=== PATIENT | male | born 1960 | race Caucasian/White ===

== ENCOUNTER 2017-05-08 01:19 | Inpatient (IN) | payer MEDICARE ==
[2017-05-08] MEDS ORDERED: MULTIVITAMIN TABLET PO ONE (01:54)
[2017-05-08] MEDS ORDERED: FOLIC ACID INJ 5 MG/1 ML 10 ML VIAL IV ONE (01:54)
[2017-05-08] MEDS ORDERED: THIAMINE HCL 100 MG in NORMAL SALINE 50 ML IV ONE (01:54)
[2017-05-08] MEDS ORDERED: RINGERS SOLUTION,LACTATED 1,000 ML IV ONE (01:55)
[2017-05-08] MEDS ORDERED: LORAZEPAM INJ 2 MG/1 ML VIAL IV ONE ×2 (01:58→03:49)
--- NOTE | 2017-05-08 01:59 | ER Document Report ---
ED General - General Chief Complaint: Alcohol Withdrawl Stated Complaint: DETOX Time Seen by Provider: 05/08/17 01:48 Notes: She is 56-year-old male who presents with complaint of alcohol abuse. Patient says that he has been drinking heavily now for 3 years. He says he drinks approximately a half a gallon of bourbon a day. He will he last drank yesterday. He started to have tremors now. He says he wants to stop drinking. He says he wants up with detox. He is never stopped cold turkey like this before. He is the nights being detoxed before. Denies any drug use. He does not take any medications. Does not see a doctor on a regular basis. He does smoke. No seizure activity that is aware of. No other complaints at this time. - Related Data Allergies/Adverse Reactions: diphenhydramine Adverse Reaction (Verified 05/08/17 02:25) Past Medical History - Social History Smoking Status: Current Every Day Smoker Frequency of alcohol use: Heavy Drug Abuse: None Family History: Reviewed & Not Pertinent Review of Systems - Review of Systems Notes: My Normal Review Basic REVIEW OF SYSTEMS: CONSTITUTIONAL : Denies fever, chills, or sweats. Denies recent illness. EENT: Denies eye, ear, throat, or mouth pain or symptoms. Denies nasal or sinus congestion. RESPIRATORY: Denies cough, cold, or chest congestion. Denies shortness of breath, difficulty breathing, or wheezing. GASTROINTESTINAL: Denies abdominal pain. Some nausea. No vomiting. GENITOURINARY: Denies difficulty urinating, painful urination, burning, frequency, or blood in urine. MUSCULOSKELETAL: Denies neck or back pain or joint pain or swelling. SKIN: Denies rash or skin lesions. NEUROLOGICAL: Denies altered mental status or loss of consciousness. Denies headache. Denies weakness or paralysis or loss of use of either side. Denies problems with gait or speech. Denies sensory or motor loss. Has a tremor. ALL OTHER SYSTEMS REVIEWED AND NEGATIVE. Physical Exam - Vital signs Vitals: Temp Pulse Resp BP Pulse Ox 98.7 F 94 20 139/75 H 93 05/08/17 01:28 05/08/17 01:28 05/08/17 01:28 05/08/17 01:28 05/08/17 01:28 - Notes Notes: General Appearance: Well nourished, alert, cooperative, no acute distress, no obvious discomfort. Patient has active tremor consistent with that of alcohol withdrawal. Vitals: reviewed, See vital signs table. Head: no swelling or tenderness to the head Eyes: PERRL, EOMI, Conjuctiva clear Mouth: No decreasd moisture Neck: Supple, no neck tenderness, No thyromegaly Lungs: No wheezing, No rales, No rhonci, No accessory muscle use, good air exchange bilaterally. Heart: Tachycardic rate, Regular rythm, No murmur, no rub Abdomen: Normal BS, soft, No rigidity, No abdominal tenderness, No guarding, no rebound, no abdominal masses, no organomegaly Extremities: strength 5/5 in all extremities, good pulses in all extremities, no swelling or tenderness in the extremities, no edema. Skin: warm, dry, appropriate color, no rash Neuro: speech clear, oriented x 3, normal affect, responds appropriately to questions. Course - Re-evaluation Re-evalutation: 05/08/17 03:51 Patient is required multiple dosages of benzodiazepines. They do work for approximately 30 minutes to an hour and then he quickly goes back to having tremors. His heart rate has been anywhere from the 90s to low 110s. Not had a seizure activity. He says some nausea but we been able to control that with Zofran. I did speak to the patient he is going to be admitted. My concern is that his withdrawals requiring frequent treatments which will be difficult to control at home. I did speak with the hospitalist, Dr. Ortega, who agrees to evaluate the patient for admission. Dictation of this chart was performed using voice recognition software; therefore, there may be some unintended grammatical errors. - Vital Signs Vital signs: Temp Pulse Resp BP Pulse Ox 98.7 F 84 25 H 143/65 H 95 05/08/17 01:28 05/08/17 02:26 05/08/17 03:02 05/08/17 03:02 05/08/17 03:02 - Laboratory Result Diagrams: 05/08/17 01:58 05/08/17 01:58 Laboratory results interpreted by me: 05/08/17 05/08/17 05/08/17 01:58 01:58 01:58 WBC 16.0 H Hgb 17.4 H Seg Neutrophils % 87.2 H Lymphocytes % 8.4 L Absolute Neutrophils 13.9 H Chloride 92 L Anion Gap 25 H BUN 31 H Glucose 142 H Direct Bilirubin 0.5 H AST 84 H Urine Protein 100 H Urine Glucose (UA) 50 H Urine Ketones 20 H Urine Blood MODERATE H Discharge - Discharge Clinical Impression: Alcohol withdrawal Qualifiers: Complication of substance-induced condition: uncomplicated Qualified Code(s): F10.230 - Alcohol dependence with withdrawal, uncomplicated Condition: Stable Disposition: ADMITTED OBSERVATION Admitting Provider: Hospitalist Unit Admitted: Telemetry
[2017-05-08] MEDS ORDERED: THIAMINE HCL INJ 200 MG/2 ML VIAL ONE (02:10)
[2017-05-08 02:12] LABS: ABSOLUTE BASOPHILS # (AUTO) 0.1 10^3/uL (0.0-0.2); ABSOLUTE LYMPHOCYTES (AUTO) 1.3 10^3/uL (0.5-4.7); ABSOLUTE MONOCYTES (AUTO) 0.6 10^3/uL (0.1-1.4); ABSOLUTE NEUT (AUTO) 13.9 10^3/uL (1.7-8.2); BASOPHILS % (AUTO) 0.4 % (0-2); HEMOGLOBIN 17.4 g/dL (13.5-17.0); LYMPHOCYTES % (AUTO) 8.4 % (13-45); MEAN CORPUSCULAR HEMOGLOBIN 32.6 pg (27.0-33.4); MEAN CORPUSCULAR HGB CONC 34.2 g/dL (32.0-36.0); MEAN CORPUSCULAR VOLUME 96 fl (80-97); PLATELET COUNT 361 10^3/uL (150-450); RED BLOOD COUNT 5.33 10^6/uL (4.35-5.55); SEGMENTED NEUTROPHILS % (AUTO) 87.2 % (42-78); TOTAL CELLS COUNTED % (AUTO) 100 %
[2017-05-08 02:35] LABS: ALANINE AMINOTRANSFERASE 54 U/L (21-72); ALBUMIN 4.9 g/dL (3.5-5.0); ALKALINE PHOSPHATASE 82 U/L (38-126); ASPARTATE AMINO TRANSFERASE 84 U/L (17-59); BILIRUBIN,DIRECT 0.5 mg/dL (0.0-0.4); BILIRUBIN,TOTAL 0.9 mg/dL (0.2-1.3); BLOOD UREA NITROGEN 31 mg/dL (7-20); CALCIUM 9.1 mg/dL (8.4-10.2); CHLORIDE 92 mmol/L (98-107); GLUCOSE 142 mg/dL (75-110); TOTAL PROTEIN 7.7 g/dL (6.3-8.2)
[2017-05-08] MEDS ORDERED: DIAZEPAM INJ 10 MG/2 ML DISP.SYRIN IV ONE (02:39)
[2017-05-08] MEDS ORDERED: ONDANSETRON HCL INJ/PF 4 MG/2 ML SDV IV ONE (02:40)
[2017-05-08 02:42] LABS: CARBON DIOXIDE 23 mmol/L (22-30); POTASSIUM 4.2 mmol/L (3.6-5.0); SODIUM 139.5 mmol/L (137-145)
[2017-05-08 02:45] LABS: ANION GAP 25 (5-19)
[2017-05-08 02:49] LABS: APPEARANCE,URINE CLEAR; BILIRUBIN,URINE NEGATIVE (NEGATIVE); COLOR,URINE YELLOW; GLUCOSE, URINE 50 mg/dL (NEGATIVE); KETONES,URINE 20 mg/dL (NEGATIVE); LEUKOCYTE ESTERASE,URINE NEGATIVE (NEGATIVE); NITRITE,URINE NEGATIVE (NEGATIVE); PROTEIN,URINE 100 mg/dL (NEGATIVE); UROBILINOGEN,URINE NEGATIVE mg/dL (<2.0)
[2017-05-08 03:00] LABS: URINE AMPHETAMINES SCREEN NEGATIVE; URINE BENZODIAZEPINES SCREEN NEGATIVE; URINE COCAINE SCREEN NEGATIVE; URINE MARIJUANA (THC) SCREEN NEGATIVE; URINE METHADONE SCREEN NEGATIVE; URINE PHENCYCLIDINE SCREEN NEGATIVE
[2017-05-08 03:01] LABS: URINE BARBITURATES SCREEN NEGATIVE
[2017-05-08] MEDS ORDERED: LIDOCAINE 2% VISCOUS SOLN 20 ML UDCUP PO ONE (03:49)
[2017-05-08] MEDS ORDERED: MAG HYDROX/AL HYDROX/SIMETH SUSP 30 ML UDCUP PO ONE (03:49)
[2017-05-08] MEDS ORDERED: METOCLOPRAMIDE HCL ORAL SOLN 10 MG/10 ML UDCUP PO ONE (03:49)
[2017-05-08] MEDS ORDERED: ACETAMINOPHEN 325 MG TABLET PO PRN (04:17)
[2017-05-08] MEDS: DIAZEPAM INJ 10 MG/2 ML DISP.SYRIN IV PRN ×2 (05:29→09:14)
[2017-05-08] MEDS ORDERED: HEPARIN SOD (PORCINE) 5,000 UNIT/ML 1 ML SYRINGE SUBCUT SCH (06:00)
[2017-05-08] MEDS ORDERED: FOLIC ACID 1 MG TABLET PO SCH (06:30)
[2017-05-08] MEDS ORDERED: NICOTINE 21 MG/24 HR PATCH.TD24 TD SCH (06:30)
[2017-05-08] MEDS ORDERED: FOLIC ACID 1 MG TABLET PO ONE (06:31)
[2017-05-08] MEDS ORDERED: NORMAL SALINE 1000 ML 1,000 ML IV PRN ×2 (06:43→12:16)
[2017-05-08] MEDS ORDERED: NICOTINE 21 MG/24 HR PATCH.TD24 TD ONE ×2 (06:45→20:15)
[2017-05-08] MEDS ORDERED: THIAMINE HCL 100 MG TABLET PO ONE (07:00)
[2017-05-08] MEDS ORDERED: THIAMINE HCL 100 MG TABLET PO SCH (07:00)
[2017-05-08] MEDS: THIAMINE HCL 100 MG TABLET PO SCH (07:10)
[2017-05-08] MEDS: NICOTINE 21 MG/24 HR PATCH.TD24 TD SCH (07:11)
--- NOTE | 2017-05-08 07:25 | PDOC H&P ---
History of Present Illness Admission Date/PCP: 05/08/17 03:56 Patient complains of: Increased shaking and diarrhea after he stopped drinking alcohol x1 day. History of Present Illness: 69-year-old male smoker with history of alcohol abuse/dependency and COPD (not on home oxygen) was admitted with the above-mentioned complaints. the patient has been drinking very heavily for the last 3-4 years. He usually drinks half a gallon of bourbon a day but he decided to quit yesterday. His last drink was about 24 hours ago. He said that he started feeling nauseous but denied any vomiting. He also had some abdominal pain which he described as burning. He started having diarrhea and he was he was very shaky and anxious so he decided to come to the hospital for further management and treatment. He was also having difficulty urinating and complained of having dysuria for the last week or so. The patient denied any chest pain but complained of worsening shortness of breath last night. He said that he has intermittent shortness of breath for which he used to use an inhaler but he ran out. He denied any fever or chills or any cough. He also denied history of seizures secondary to alcohol withdrawal or any DTs. In the ED, his temperature was 98.7, heart rate 94, respiratory rate 20, blood pressure 139/75 with oxygen saturation of 93% on room air. His WBC was 16.0 hemoglobin 17.4. AST was 84 and ALT 54. His UA and UDS were both negative. He received a total of 3.5 mg IV Ativan 1 and 5 mg IV Valium 1 with some improvement in her sitting his symptoms. Past Medical History Pulmonary Medical History: Reports: Chronic Obstructive Pulmonary Disease (COPD) EENT Medical History: Reports: Other - retinopathy. Psychiatric Medical History: Reports: Alcohol Dependency Past Surgical History Past Surgical History: Reports: Orthopedic Surgery - L4-L5 laminectomy., Other - right inguinal hernia repair; left ulnar nerve replacement. Social History Smoking Status: Current Every Day Smoker Cigarettes Packs Per Day: 2 - 2 packs a day for more than 40 years. The Frequency of Alcohol Use: Heavy - Half a gallon of bourbon for the last 3-4 years. Last dink was 24 hours ago Hx Recreational Drug Use: No Family History Parental Family History Reviewed: Yes - Father: of an ME at 46 yrs old. Children Family History Reviewed: No Sibling(s) Family History Reviewed.: Yes Medication/Allergy Home Medications: No Home Medications 05/08/17 Allergies/Adverse Reactions: diphenhydramine Adverse Reaction (Verified 05/08/17 02:25) Review of Systems ROS unobtainable: Other - Pertinent positives and negatives as detailed in the HPI. Physical Exam Vital Signs: Temp Pulse Resp BP Pulse Ox 98.7 F 84 25 H 143/65 H 95 05/08/17 01:28 05/08/17 02:26 05/08/17 03:02 05/08/17 03:02 05/08/17 03:02 General appearance: PRESENT: no acute distress, well-developed Head exam: PRESENT: atraumatic, normocephalic Eye exam: PRESENT: conjunctiva pink, PERRLA. ABSENT: scleral icterus Mouth exam: PRESENT: moist, tongue midline Neck exam: ABSENT: JVD Respiratory exam: PRESENT: decreased breath sounds, rhonchi. ABSENT: rales, wheezes Cardiovascular exam: PRESENT: RRR - S1 S2 normal. Pulses: PRESENT: normal dorsalis pedis pul GI/Abdominal exam: PRESENT: normal bowel sounds, soft. ABSENT: distended, guarding, rebound, tenderness Rectal exam: PRESENT: deferred Extremities exam: PRESENT: full ROM, pedal edema - trace. Neurological exam: PRESENT: alert, awake, oriented to person, oriented to place , oriented to time, oriented to situation, CN II-XII grossly intact - Bilateral hand tremors. No babinski or clonus. Gait was not assessed. Psychiatric exam: PRESENT: anxious Skin exam: PRESENT: dry, intact, warm. ABSENT: cyanosis, rash Results Laboratory Results: CBC: WBC 16.0, hemoglobin 17.4, hematocrit 51.0, MCV 96, RDW 13.0 platelets 361. CMP: Sodium 139.5, potassium 4.2, chloride 92, bicarb 23, anion gap 25, BUN 31, creatinine 0.81 glucose 142, calcium 9.1, magnesium 2.3, AST 84, ALT 54. Lipase pending. UA: Negative, UDS: Negative. Assessment & Plan - Diagnosis (1) Alcohol withdrawal Qualifiers: Complication of substance-induced condition: uncomplicated Qualified Code(s ): F10.230 - Alcohol dependence with withdrawal, uncomplicated Is this a current diagnosis for this admission?: Yes Plan: We will continue IV Valium as needed, IVF, thiamine, folic acid and multivitamins. (2) Leukocytosis Is this a current diagnosis for this admission?: Yes Plan: Possibly secondary to hemoconcentration. His UA was negative. We will continue hydration and repeat CBC in a.m. (3) COPD (chronic obstructive pulmonary disease) Is this a current diagnosis for this admission?: No Plan: stable. (4) Smoker Is this a current diagnosis for this admission?: No Plan: 2 packs a day for many years. He is willing to quit. Nicotine patch. (5) Alcohol abuse Is this a current diagnosis for this admission?: Yes Plan: possible dependency. He is seeking detox. - Time Time Spent: 30 to 50 Minutes - Inpatient Certification Based on my medical assessment, after consideration of the patient's comorbidities, presenting symptoms, or acuity I expect that the services needed warrant INPATIENT care.: Yes I certify that my determination is in accordance with my understanding of Medicare's requirements for reasonable and necessary INPATIENT services [42 CFR 412.3e].: Yes
[2017-05-08] MEDS: DOCUSATE SODIUM 100 MG CAPSULE PO PRN ×2 (09:14→17:52)
[2017-05-08] MEDS: FOLIC ACID 1 MG TABLET PO SCH (09:14)
[2017-05-08] MEDS: PROMETHAZINE HCL 25 MG TABLET PO PRN (09:14)
[2017-05-08] MEDS ORDERED: INFLUENZA ADLT QUAD (36MOS+) 2017-18 VAC 0.5 ML SYR IM PRN (11:41)
[2017-05-08] MEDS ORDERED: LORAZEPAM INJ 2 MG/1 ML VIAL (TAPER DOSING) IV SCH (12:00)
[2017-05-08] MEDS ORDERED: LORAZEPAM INJ 2 MG/ML VIAL (4 MG PRN DOSE) IV ×2 (12:00→13:30)
[2017-05-08] MEDS ORDERED: LORAZEPAM INJ 2 MG/1 ML VIAL IV PRN (12:30)
--- NOTE | 2017-05-08 12:36 | Progress Note ---
Provider Note Provider Note: Patient heme positive. Patient reports that he has had dark black stools for the last [address] patient on PPI drip with suspected upper GI bleed acute on chronic. Will consult surgery for EGD. Did call coordinate measuring machine operator who states that Dr. Reese will be on service May 11, 2017. Will ask surgery to see patient in case patient decompensates. Will place patient on Klonopin 1 mg every 8 hours as needed for agitation along with EtOH withdrawal protocol. Will write for thiamine folic acid and multivitamin to continue. Will place patient on IV fluids at 150 cc/h. Will obtain chest x-ray to evaluate for possible pneumonia. Patient currently not on antibiotics.
--- NOTE | 2017-05-08 13:03 | RADIOLOGY REPORT (SQ) ---
EXAM DESCRIPTION: CHEST SINGLE VIEW COMPLETED DATE/TIME: 05/08/2017 12:56 pm REASON FOR STUDY: Shortness of breath COMPARISON: None. EXAM PARAMETERS: NUMBER OF VIEWS: One view. TECHNIQUE: Single frontal radiographic view of the chest acquired. RADIATION DOSE: NA LIMITATIONS: None. FINDINGS: LUNGS AND PLEURA: No opacities, masses or pneumothorax. No pleural effusion. MEDIASTINUM AND HILAR STRUCTURES: No masses. Contour normal. HEART AND VASCULAR STRUCTURES: Heart normal in size. Normal vasculature. BONES: No acute findings. HARDWARE: None in the chest. OTHER: No other significant finding. IMPRESSION: NO ACUTE RADIOGRAPHIC FINDING IN THE CHEST. TECHNICAL DOCUMENTATION: JOB ID: [id number] [employer]- All Rights Reserved Reading location - IP/workstation name: [email or web address]
[2017-05-08] MEDS: CLONAZEPAM 1 MG TABLET PO PRN (13:41)
[2017-05-08] MEDS ORDERED: PANTOPRAZOLE SODIUM 80 MG in NORMAL SALINE 100 ML IV ONE (14:30)
[2017-05-08] MEDS: NORMAL SALINE 100 ML with PANTOPRAZOLE SODIUM 80 MG IV PRN ×2 (16:38)
[2017-05-08] MEDS: ONDANSETRON HCL INJ/PF 4 MG/2 ML SDV IV PRN ×2 (16:40→23:31)
[2017-05-08] MEDS ORDERED: PEG 3350/NA SULF,BICARB,CL/KCL 4000 ML PO ONE (17:41)
--- NOTE | 2017-05-08 17:41 | PDOC CONSULTATION ---
Consultation Consult Date: 05/08/17 Consult reason:: GI bleed History of Present Illness Admission Date/PCP: 05/08/17 03:56 History of Present Illness: 69-year-old male smoker with history of alcohol abuse/dependency and COPD (not on home oxygen) was admitted with the above-mentioned complaints. the patient has been drinking very heavily for the last 3-4 years. He usually drinks half a gallon of bourbon a day but he decided to quit yesterday. His last drink was about 24 hours ago. He said that he started feeling nauseous but denied any vomiting. He also had some abdominal pain which he described as burning. He started having diarrhea and he was he was very shaky and anxious so he decided to come to the hospital for further management and treatment. He was also having difficulty urinating and complained of having dysuria for the last week or so. The patient denied any chest pain but complained of worsening shortness of breath last night. He said that he has intermittent shortness of breath for which he used to use an inhaler but he ran out. He denied any fever or chills or any cough. He also denied history of seizures secondary to alcohol withdrawal or any DTs. In the ED, his temperature was 98.7, heart rate 94, respiratory rate 20, blood pressure 139/75 with oxygen saturation of 93% on room air. His WBC was 16.0 hemoglobin 17.4. AST was 84 and ALT 54. His UA and UDS were both negative. He received a total of 3.5 mg IV Ativan 1 and 5 mg IV Valium 1 with some improvement in her sitting his symptoms. General surgeon addendum: According to the patient he has never had a GI bleed. He is undergone upper and lower endoscopy before in [place] several years ago with unremarkable findings. No follow-up colonoscopy since. Patient denies history of blood transfusions or esophageal varices. Strong family history of colon cancer in his mother in her 60s and aunt in her 60s. He lives in a trailer, drinks 1 gallon of bourbon a day and smokes 2 packs of cigarettes per day according to his report this evening. Is now receiving Ativan. He had a large dark melanotic stool which we visualized in the commode today. Denies episodes of bright red blood per rectum or melanotic stool. Past Medical History Pulmonary Medical History: Reports: Chronic Obstructive Pulmonary Disease (COPD) EENT Medical History: Reports: Other - retinopathy. Psychiatric Medical History: Reports: Alcohol Dependency Hematology: Reports: Other - retinopathy. Past Surgical History Past Surgical History: Reports: Orthopedic Surgery - L4-L5 laminectomy., Other - right inguinal hernia repair; left ulnar nerve replacement. Social History Smoking Status: Current Every Day Smoker Cigarettes Packs Per Day: 2 Number of Years Smokin Frequency of Alcohol Use: Heavy Hx Recreational Drug Use: No Drugs: None Hx Prescription Drug Abuse: No - Advance Directive Resuscitation Status: Full Code Family History Family History: Reviewed & Not Pertinent Parental Family History Reviewed: Yes Children Family History Reviewed: Yes Sibling(s) Family History Reviewed.: Yes Medication/Allergy Home Medications: No Home Medications 05/08/17 Allergies/Adverse Reactions: diphenhydramine Adverse Reaction (Verified 05/08/17 02:25) Physical Exam Vital Signs: Temp Pulse Resp BP Pulse Ox 99.5 F 59 L 20 127/49 H 96 05/08/17 16:00 05/08/17 16:00 05/08/17 16:00 05/08/17 16:00 05/08/17 16:00 Intake & Output 05/07/17 05/08/17 05/09/17 06:59 06:59 06:59 Weight 84.7 kg General appearance: PRESENT: mild distress Head exam: PRESENT: normocephalic Respiratory exam: PRESENT: wheezes Cardiovascular exam: PRESENT: RRR GI/Abdominal exam: PRESENT: other - Soft not distended no rigidity no peritoneal signs Rectal exam: PRESENT: deferred Results Laboratory Results: 05/08/17 11:15 Stool Occult Blood POSITIVE Impressions: Chest X-Ray 05/08/17 00:00 IMPRESSION: NO ACUTE RADIOGRAPHIC FINDING IN THE CHEST. Assessment & Plan - Diagnosis (1) Alcohol abuse Is this a current diagnosis for this admission?: Yes (2) Family history of colon cancer Is this a current diagnosis for this admission?: Yes (3) GI bleed Qualifiers: GI bleed type/associated pathology: melena Qualified Code(s): K92.1 - Melena Is this a current diagnosis for this admission?: Yes Plan: Patient is admitted to the internal medicine service for management of acute alcohol withdrawal. He has had a large melanotic stool, consistent with chronic GI bleed. Despite having previous upper and lower endoscopy, I believe repeat endoscopic evaluation is indicated Recommendations: 1. We will keep patient n.p.o. on IV fluids, and plan for upper and lower endoscopy tomorrow, LMAC anesthesia, 1 hour, will biopsy possible injection therapy. Risks benefits alternatives of planned procedure including bleeding, infection, need for additional treatment reviewed 2. Hold all blood thinners; will prescribe cathartics - Time Time Spent: 50 to 70 Minutes Smoking Cessation Education: over 10 minutes - Inpatient Certification Medical Necessity: Need For IV Fluids
[2017-05-08] MEDS: LORAZEPAM INJ 2 MG/1 ML VIAL (TAPER DOSING) IV SCH ×2 (17:50→23:29)
[2017-05-08] MEDS ORDERED: PEG 3350/NA SULF,BICARB,CL/KCL 4000 ML ONE (18:25)
[2017-05-09] MEDS: NORMAL SALINE 100 ML with PANTOPRAZOLE SODIUM 80 MG IV PRN ×6 (00:25→17:10)
[2017-05-09] MEDS: PROMETHAZINE HCL INJ 25 MG/1 ML VIAL IV PRN ×2 (03:27→15:16)
[2017-05-09] MEDS: FENTANYL CITRATE INJ/PF 100 MCG/2 ML AMPUL IV PRN ×3 (03:27→15:16)
[2017-05-09] MEDS: NORMAL SALINE 1000 ML 1,000 ML IV PRN ×2 (05:31→17:10)
[2017-05-09 05:44] LABS: HEMATOCRIT 41.2 % (37.9-51.0); HEMOGLOBIN 14.2 g/dL (13.5-17.0); MEAN CORPUSCULAR HEMOGLOBIN 33.1 pg (27.0-33.4); MEAN CORPUSCULAR HGB CONC 34.4 g/dL (32.0-36.0); MEAN CORPUSCULAR VOLUME 96 fl (80-97); PLATELET COUNT 178 10^3/uL (150-450); RED BLOOD COUNT 4.29 10^6/uL (4.35-5.55); RED CELL DISTRIBUTION WIDTH 13.7 % (11.5-14.0); WHITE BLOOD COUNT 8.5 10^3/uL (4.0-10.5)
[2017-05-09 06:09] LABS: ALANINE AMINOTRANSFERASE 43 U/L (21-72); ALBUMIN 3.1 g/dL (3.5-5.0); ALKALINE PHOSPHATASE 55 U/L (38-126); ANION GAP 10 (5-19); ASPARTATE AMINO TRANSFERASE 42 U/L (17-59); BILIRUBIN,DIRECT 0.2 mg/dL (0.0-0.4); BILIRUBIN,TOTAL 1.5 mg/dL (0.2-1.3); BLOOD UREA NITROGEN 21 mg/dL (7-20); CALCIUM 8.2 mg/dL (8.4-10.2); CARBON DIOXIDE 29 mmol/L (22-30); CHLORIDE 100 mmol/L (98-107); GLUCOSE 95 mg/dL (75-110); POTASSIUM 3.6 mmol/L (3.6-5.0); SODIUM 138.5 mmol/L (137-145); TOTAL PROTEIN 4.9 g/dL (6.3-8.2)
[2017-05-09] MEDS: THIAMINE HCL 100 MG TABLET PO SCH (07:44)
[2017-05-09] MEDS: NICOTINE 21 MG/24 HR PATCH.TD24 TD SCH (07:46)
[2017-05-09] MEDS: ONDANSETRON HCL INJ/PF 4 MG/2 ML SDV IV PRN ×2 (07:46→22:02)
[2017-05-09] MEDS: LORAZEPAM INJ 2 MG/1 ML VIAL (TAPER DOSING) IV SCH ×2 (08:02→11:52)
[2017-05-09] MEDS ORDERED: THIAMINE HCL 100 MG TABLET PO SCH (10:00)
[2017-05-09] MEDS ORDERED: FOLIC ACID 1 MG TABLET PO SCH (10:00)
[2017-05-09] MEDS: FOLIC ACID 1 MG TABLET PO SCH (10:34)
[2017-05-09] MEDS: DOCUSATE SODIUM 100 MG CAPSULE PO PRN ×2 (10:34→17:10)
[2017-05-09] MEDS: MULTIVITAMIN TABLET PO SCH (10:34)
[2017-05-09] MEDS ORDERED: NORMAL SALINE 1000 ML 1,000 ML IV ONE (11:30)
[2017-05-09] MEDS ORDERED: FENTANYL CITRATE INJ/PF 100 MCG/2 ML AMPUL ONE (12:23)
[2017-05-09] MEDS ORDERED: MIDAZOLAM 2 MG/2 ML INJ ONE (12:23)
[2017-05-09] MEDS ORDERED: PROPOFOL INJ 200 MG/20 ML VIAL IV ONE (12:24)
[2017-05-09] MEDS ORDERED: MORPHINE SULFATE 10 MG/ML INJ IV PRN (13:00)
[2017-05-09] MEDS ORDERED: FENTANYL CITRATE INJ/PF 100 MCG/2 ML AMPUL IV PRN ×3 (13:00)
[2017-05-09] MEDS ORDERED: OXYCODONE-ACETAMINOPHEN 5-325 MG TABLET PO PRN ×2 (13:00)
--- NOTE | 2017-05-09 13:46 | PDOC PROGRESS REPORT ---
Subjective Progress Note for:: 05/09/17 Subjective:: Patient seen earlier this morning prior to EGD. Nursing reports that patient's resting heart rate is in the 40s. Nursing states that when patient is awake his heart rate is in the 80s-90s. Received call from Dr. Farrar reporting that patient was found to have a pyloric ulcer on EGD that was not actively bleeding. Reason For Visit: ALCOHOL WITHDRAWAL Physical Exam Vital Signs: Temp Pulse Resp BP Pulse Ox 98.3 F 45 L 18 145/52 H 97 05/09/17 04:52 05/09/17 04:52 05/09/17 04:52 05/09/17 04:52 05/09/17 04:52 Intake & Output 05/08/17 05/09/17 05/10/17 06:59 06:59 06:59 Intake Total 3147 Output Total 500 Balance 2647 Weight 84.7 kg General appearance: PRESENT: well-developed, well-nourished Head exam: PRESENT: atraumatic, normocephalic Eye exam: PRESENT: conjunctiva pink, EOMI Ear exam: PRESENT: normal external ear exam Mouth exam: PRESENT: moist, tongue midline Neck exam: ABSENT: carotid bruit, JVD, lymphadenopathy, thyromegaly Respiratory exam: PRESENT: clear to auscultation alexei. ABSENT: rales, rhonchi, wheezes Cardiovascular exam: PRESENT: bradycardia, RRR Pulses: PRESENT: normal dorsalis pedis pul Vascular exam: PRESENT: normal capillary refill GI/Abdominal exam: PRESENT: normal bowel sounds, soft. ABSENT: distended, guarding, mass, organolmegaly, rebound, tenderness Rectal exam: PRESENT: deferred Extremities exam: PRESENT: full ROM. ABSENT: calf tenderness, clubbing, pedal edema Neurological exam: PRESENT: other - Sleepy but able to awake the patient answers questions appropriately Psychiatric exam: PRESENT: other - But able to awake Focused psych exam: PRESENT: other - Flat affect Skin exam: PRESENT: dry, intact, warm. ABSENT: cyanosis, rash Results Laboratory Results: 05/09/17 04:49 05/09/17 04:49 05/09/17 05/09/17 04:49 04:49 WBC 8.5 RBC 4.29 L Hgb 14.2 D Hct 41.2 MCV 96 MCH 33.1 MCHC 34.4 RDW 13.7 Plt Count 178 Sodium 138.5 Potassium 3.6 Chloride 100 Carbon Dioxide 29 Anion Gap 10 BUN 21 H Creatinine 0.76 Est GFR ( Amer) > 60 Est GFR (Non-Af Amer) > 60 Glucose 95 Calcium 8.2 L Total Bilirubin 1.5 H AST 42 ALT 43 Alkaline Phosphatase 55 Total Protein 4.9 L Albumin 3.1 L Impressions: Chest X-Ray 05/08/17 00:00 IMPRESSION: NO ACUTE RADIOGRAPHIC FINDING IN THE CHEST. Assessment & Plan - Diagnosis (1) Alcohol dependence Is this a current diagnosis for this admission?: Yes Plan: We will continue alcohol withdrawal protocol. Continue with vitamin replacement. (2) Pyloric ulcer Qualifiers: Gastric ulcer chronicity: acute Qualified Code(s): K25.3 - Acute gastric ulcer without hemorrhage or perforation Is this a current diagnosis for this admission?: Yes Plan: We will continue PPI for 72 hours and then transition to Protonix 40 mg p.o. twice daily (3) Alcohol withdrawal Qualifiers: Complication of substance-induced condition: uncomplicated Qualified Code(s ): F10.230 - Alcohol dependence with withdrawal, uncomplicated Is this a current diagnosis for this admission?: Yes Plan: We will continue EtOH withdrawal protocol. (4) COPD (chronic obstructive pulmonary disease) Is this a current diagnosis for this admission?: No Plan: No acute issues at this time. (5) GI bleed Qualifiers: GI bleed type/associated pathology: melena Qualified Code(s): K92.1 - Melena Is this a current diagnosis for this admission?: Yes Plan: Recent found to have a pyloric ulcer with no active bleeding. We will continue PPI for 72 hours and then switched to Protonix 40 mg p.o. twice daily for 2 weeks followed by 1 tablet p.o. daily. (6) Leukocytosis Is this a current diagnosis for this admission?: Yes Plan: Secondary to stress response: Resolved - Time Time Spent with patient: 15-24 minutes
--- NOTE | 2017-05-09 13:51 | EKG REPORT ---
SEVERITY:- DEFECTIVE ECG - SINUS RHYTHM LEFT ANTERIOR FASCICULAR BLOCK CONSIDER ANTERIOR INFARCT (LIKELY V1 AND V3 SWITCHED) REPEAT WITH PROPER LEAD PACEMENT : Confirmed by: Cyrus Galdamez MD 09-May-2017 13:50:25
[2017-05-09] MEDS: CLONAZEPAM 1 MG TABLET PO PRN (15:16)
--- NOTE | 2017-05-09 17:38 | OPERATIVE REPORT E ---
Operative Report NAME: JOHN DIAMOND : 1960 AGE: 56Y DATE OF SURGERY: 05/09/2017 ROOM: 328 PREOPERATIVE DIAGNOSES: 1. ALCOHOL WITHDRAWAL. 2. MELANOTIC STOOLS. POSTOPERATIVE DIAGNOSES: 1. ALCOHOL WITHDRAWAL. 2. MELANOTIC STOOLS. 3. ACUTE GASTRIC ULCER, SPECIFICALLY DUODENAL BULB, MODERATE GASTRITIS. 4. LIPOMA OF THE TRANSVERSE COLON. OPERATION: 1. Esophagogastroduodenoscopy. 2. Gastric antral biopsy sent for ISABELL and histologic analysis. 3. Total colonoscopy to the cecum with photo documentation. SURGEON: TOMAS MCLAIN M.D. ANESTHESIA: L-MAC. COMPLICATIONS: None. ESTIMATED BLOOD LOSS: Scant. DRAINS: None. TISSUE REMOVED OR ALTERED: Biopsy of gastric antrum. FINDINGS: See below. PROCEDURE: The patient was taken from the floor, to the preop holding area, and then to the main operating room where L-MAC anesthesia was induced. He was placed in the semi-recumbent position. Oral mouthpiece inserted, and appropriate level of L-MAC anesthesia induced. Surgical plan and surgical timeout were conducted. The flexible adult upper endoscopy was advanced through the hypopharynx, down the esophagus, through the stomach, and into the duodenum. The scope was slowly withdrawn through the pylorus. The duodenum was found to be essentially unremarkable except for mild duodenitis. No ulceration or bleeding identified. In the pyloric channel there was approximately 2 cm ulcer with some fresh blood on the parameter and white plaque in the center. Photos were taken. No biopsy was taken. There was no evidence of active bleeding or obstruction. The rest of the stomach was carefully visualized and there was no evidence of a tumor, stricture, or bleeding. The scope was retroflexed in the body of the stomach and a small hiatal hernia identified. The scope was withdrawn through the GE junction. The Z-line was at approximately 38 cm from the incisor. The distal esophagus showed mild changes to the Z-line. No biopsy taken. A cold forceps biopsy was obtained of the distal antrum and sent for ISABELL and histologic analysis. Bleeding was minimal. The esophagus was carefully scoped and there was no evidence of Whitman's bleeding or tumor. The scope was withdrawn from the patient's oropharynx. He tolerated this portion of the procedure well. The patient was now placed in the extreme left lateral decubitus position with knees to the chest. Rectal exam was performed. There was no visible or palpable anorectal pathology. The flexible adult colonoscope was advanced in the anorectal canal all the way to the cecum. This was a reasonably well-prepped bowel with no solid stool, but a fair to moderate amount of liquid green stool, which required aspiration. Transillumination of the anterior abdominal wall, and visualization of the ileocecal valve and the orifice to the appendix confirmed cecal intubation. The scope was withdrawn through the length of the colon checking the mucosa carefully. There was no evidence of tumor, stricture, or bleeding. There was a pedunculated lipoma of the transverse colon photographed, no biopsy obtained. The scope was withdrawn from the patient's anus. He tolerated the procedure well, taken to Recovery in stable condition. DICTATING PHYSICIAN: TOMAS MCLAIN M.D. [id number] PHY#: [id number] ID: [id number] JOB#: [id number] ACCT: [id number] cc:TOMAS MCLAIN M.D. >
[2017-05-09] MEDS: PROMETHAZINE HCL 25 MG TABLET PO PRN (20:39)
[2017-05-09] MEDS ORDERED: HYDROMORPHONE HCL INJ/PF 2 MG/ML AMPULE ONE (22:53)
[2017-05-09] MEDS ORDERED: HYDROMORPHONE HCL INJ/PF 2 MG/ML AMPULE IV ONE (23:00)
[2017-05-10] MEDS: NORMAL SALINE 1000 ML 1,000 ML IV PRN (03:02)
[2017-05-10] MEDS: NORMAL SALINE 100 ML with PANTOPRAZOLE SODIUM 80 MG IV PRN ×2 (04:34)
[2017-05-10] MEDS: THIAMINE HCL 100 MG TABLET PO SCH (06:12)
[2017-05-10] MEDS: NICOTINE 21 MG/24 HR PATCH.TD24 TD SCH (06:12)
[2017-05-10] MEDS: ONDANSETRON HCL INJ/PF 4 MG/2 ML SDV IV PRN (06:44)
[2017-05-10 06:54] LABS: ABSOLUTE EOSINOPHILS # (AUTO) 0.2 10^3/uL (0.0-0.6); ABSOLUTE LYMPHOCYTES (AUTO) 1.7 10^3/uL (0.5-4.7); ABSOLUTE MONOCYTES (AUTO) 0.4 10^3/uL (0.1-1.4); ABSOLUTE NEUT (AUTO) 5.7 10^3/uL (1.7-8.2); BASOPHILS % (AUTO) 0.6 % (0-2); EOSINOPHILS % (AUTO) 2.2 % (0-6); HEMATOCRIT 44.2 % (37.9-51.0); HEMOGLOBIN 15.4 g/dL (13.5-17.0); LYMPHOCYTES % (AUTO) 20.8 % (13-45); MEAN CORPUSCULAR HGB CONC 34.9 g/dL (32.0-36.0); MEAN CORPUSCULAR VOLUME 95 fl (80-97); MONOCYTES % (AUTO) 5.3 % (3-13); PLATELET COUNT 152 10^3/uL (150-450); RED BLOOD COUNT 4.67 10^6/uL (4.35-5.55); RED CELL DISTRIBUTION WIDTH 13.5 % (11.5-14.0); SEGMENTED NEUTROPHILS % (AUTO) 71.1 % (42-78); TOTAL CELLS COUNTED % (AUTO) 100 %
[2017-05-10 07:15] LABS: ANION GAP 11 (5-19); BLOOD UREA NITROGEN 12 mg/dL (7-20); CALCIUM 8.6 mg/dL (8.4-10.2); CARBON DIOXIDE 29 mmol/L (22-30); CHLORIDE 97 mmol/L (98-107); GLUCOSE 90 mg/dL (75-110); SODIUM 137.1 mmol/L (137-145)
[2017-05-10 07:18] LABS: POTASSIUM 3.3 mmol/L (3.6-5.0)
[2017-05-10] MEDS ORDERED: POTASSIUM CHLORIDE 10 MEQ TABLET.SA PO ONE (07:40)
[2017-05-10 08:33] VITALS: BP 173/95
[2017-05-10] MEDS: MULTIVITAMIN TABLET PO SCH (09:13)
[2017-05-10] MEDS: DOCUSATE SODIUM 100 MG CAPSULE PO PRN (09:13)
[2017-05-10] MEDS: FOLIC ACID 1 MG TABLET PO SCH (09:13)
[2017-05-10] MEDS: CLONAZEPAM 1 MG TABLET PO PRN (10:37)
[2017-05-10] MEDS ORDERED: NORMAL SALINE 1000 ML 1,000 ML IV PRN (12:04)
[2017-05-10] MEDS ORDERED: CLONAZEPAM 1 MG TABLET PO PRN (12:05)
--- NOTE | 2017-05-10 12:19 | PDOC PROGRESS REPORT ---
Subjective Progress Note for:: 05/10/17 Subjective:: Pt states that he is having abd pain. Nursing states the patient has been defecating on himself. Nursing also reports that patient has been requesting for stronger pain medication. Spoke to patient this morning about getting help for his alcohol abuse. During my encounter patient did not request for additional pain medication. Reason For Visit: ALCOHOL WITHDRAWAL Physical Exam Vital Signs: Temp Pulse Resp BP Pulse Ox 97.7 F 76 24 H 173/95 H 95 05/10/17 08:04 05/10/17 08:04 05/10/17 08:04 05/10/17 08:04 05/10/17 08:04 Intake & Output 05/09/17 05/10/17 05/11/17 06:59 06:59 06:59 Intake Total 3147 8750 Output Total 500 2300 Balance 2647 6450 Weight 84.7 kg 86.2 kg General appearance: PRESENT: no acute distress, well-developed, well-nourished Head exam: PRESENT: atraumatic, normocephalic Eye exam: PRESENT: conjunctiva pink, EOMI Ear exam: PRESENT: normal external ear exam Mouth exam: PRESENT: moist, tongue midline Neck exam: ABSENT: carotid bruit, JVD, lymphadenopathy, thyromegaly Respiratory exam: PRESENT: clear to auscultation alexei. ABSENT: rales, rhonchi, wheezes Cardiovascular exam: PRESENT: RRR. ABSENT: diastolic murmur, rubs, systolic murmur Pulses: PRESENT: normal dorsalis pedis pul Vascular exam: PRESENT: normal capillary refill GI/Abdominal exam: PRESENT: normal bowel sounds, soft. ABSENT: distended, guarding, mass, organolmegaly, rebound, tenderness Rectal exam: PRESENT: deferred Extremities exam: PRESENT: full ROM. ABSENT: calf tenderness, clubbing, pedal edema Musculoskeletal exam: PRESENT: full ROM Neurological exam: PRESENT: alert, awake, oriented to person, oriented to place , oriented to time, oriented to situation Psychiatric exam: PRESENT: agitated Skin exam: PRESENT: dry, intact, warm. ABSENT: cyanosis, rash Results Laboratory Results: 05/10/17 06:06 05/10/17 06:06 05/10/17 05/10/17 06:06 06:06 WBC 8.0 RBC 4.67 Hgb 15.4 Hct 44.2 MCV 95 MCH 33.0 MCHC 34.9 RDW 13.5 Plt Count 152 Seg Neutrophils % 71.1 Lymphocytes % 20.8 Monocytes % 5.3 Eosinophils % 2.2 Basophils % 0.6 Absolute Neutrophils 5.7 Absolute Lymphocytes 1.7 Absolute Monocytes 0.4 Absolute Eosinophils 0.2 Absolute Basophils 0.0 Sodium 137.1 Potassium 3.3 L Chloride 97 L Carbon Dioxide 29 Anion Gap 11 BUN 12 Creatinine 0.78 Est GFR ( Amer) > 60 Est GFR (Non-Af Amer) > 60 Glucose 90 Calcium 8.6 Magnesium 1.8 Impressions: Chest X-Ray 05/08/17 00:00 IMPRESSION: NO ACUTE RADIOGRAPHIC FINDING IN THE CHEST. Assessment & Plan - Diagnosis (1) Alcohol dependence Is this a current diagnosis for this admission?: Yes Plan: We will continue alcohol withdrawal protocol. Continue with vitamin replacement. Will increase Klonopin to 2 mg every 8 hours as needed (2) Alcohol withdrawal Qualifiers: Complication of substance-induced condition: uncomplicated Qualified Code(s ): F10.230 - Alcohol dependence with withdrawal, uncomplicated Is this a current diagnosis for this admission?: Yes (3) COPD (chronic obstructive pulmonary disease) Is this a current diagnosis for this admission?: No Plan: No acute issues at this time. (4) GI bleed Qualifiers: GI bleed type/associated pathology: melena Qualified Code(s): K92.1 - Melena Is this a current diagnosis for this admission?: Yes Plan: Recent found to have a duodenal ulcer with no active bleeding. We will continue PPI for 72 hours and then switched to Protonix 40 mg p.o. twice daily for 2 weeks followed by 1 tablet p.o. daily. (5) Leukocytosis Is this a current diagnosis for this admission?: Yes Plan: Secondary to stress response: Resolved (6) Duodenitis with bleeding Is this a current diagnosis for this admission?: Yes Plan: We will continue PPI drip. - Time Time Spent with patient: 15-24 minutes
--- NOTE | 2017-05-10 12:23 | PDOC DISCHARGE SUMMARY ---
General - Admit/Disc Date/PCP Admission Date/Primary Care Provider: 05/08/17 03:56 Discharge Date: 05/10/17 - Discharge Diagnosis (1) Alcohol dependence Is this a current diagnosis for this admission?: Yes Summary: Left AMA (2) Alcohol withdrawal Is this a current diagnosis for this admission?: Yes Summary: Left AMA (3) COPD (chronic obstructive pulmonary disease) Is this a current diagnosis for this admission?: No (4) GI bleed Is this a current diagnosis for this admission?: Yes Summary: Acute on chronic upper GI bleed secondary to duodenal ulcer: Patient was placed on PPI. Patient left AMA (5) Leukocytosis Is this a current diagnosis for this admission?: Yes Summary: Secondary to stress response resolved (6) Duodenitis with bleeding Is this a current diagnosis for this admission?: Yes Summary: Patient was placed on PPI drip with intention of patient completing 72 hours and then transitioning over to PPI twice daily however patient left AMA. - Additional Information Resuscitation Status: Full Code Home Medications: No Home Medications 05/08/17 History of Present Illness Patient complains of: EtOH withdrawal History of Present Illness: JOHN DIAMOND is a 56 year old male presents to the emergency room secondary to EtOH withdrawal. Patient reported that he wanted to stop drinking. Patient also reported that he had black stools at home. Patient's stool was Hemocculted and found to be positive. Patient was placed on PPI drip and surgery scoped patient. Patient was found to have duodenal ulcer. Patient left AMA. Hospital Course Hospital Course: JOHN DIAMOND is a 56 year old male presents to the emergency room secondary to EtOH withdrawal. Patient reported that he wanted to stop drinking. Patient also reported that he had black stools at home. Patient's stool was Hemocculted and found to be positive. Patient was placed on PPI drip and surgery scoped patient. Patient was found to have duodenal ulcer. Patient left AMA. Physical Exam Vital Signs: Temp Pulse Resp BP Pulse Ox 97.7 F 76 24 H 173/95 H 95 05/10/17 08:04 05/10/17 08:04 05/10/17 08:04 05/10/17 08:04 05/10/17 08:04 Intake & Output 05/09/17 05/10/17 05/11/17 06:59 06:59 06:59 Intake Total 3147 8750 Output Total 500 2300 Balance 2647 6450 Weight 84.7 kg 86.2 kg General appearance: PRESENT: no acute distress, well-developed, well-nourished Head exam: PRESENT: atraumatic, normocephalic Eye exam: PRESENT: conjunctiva pink, EOMI Ear exam: PRESENT: normal external ear exam Mouth exam: PRESENT: moist, tongue midline Neck exam: ABSENT: carotid bruit, JVD, lymphadenopathy, thyromegaly Respiratory exam: PRESENT: clear to auscultation alexei. ABSENT: rales, rhonchi, wheezes Cardiovascular exam: PRESENT: RRR. ABSENT: diastolic murmur, rubs, systolic murmur Pulses: PRESENT: normal dorsalis pedis pul Vascular exam: PRESENT: normal capillary refill GI/Abdominal exam: PRESENT: normal bowel sounds, soft. ABSENT: distended, guarding, mass, organolmegaly, rebound, tenderness Rectal exam: PRESENT: deferred Extremities exam: PRESENT: full ROM. ABSENT: calf tenderness, clubbing, pedal edema Musculoskeletal exam: PRESENT: full ROM Neurological exam: PRESENT: alert, oriented to person, oriented to place, oriented to time, oriented to situation Psychiatric exam: PRESENT: appropriate affect, normal mood, other - Tremulous. ABSENT: homicidal ideation, suicidal ideation Skin exam: PRESENT: dry, intact, warm. ABSENT: cyanosis, rash Results Laboratory Results: 05/10/17 06:06 05/10/17 06:06 05/10/17 05/10/17 06:06 06:06 WBC 8.0 RBC 4.67 Hgb 15.4 Hct 44.2 MCV 95 MCH 33.0 MCHC 34.9 RDW 13.5 Plt Count 152 Seg Neutrophils % 71.1 Lymphocytes % 20.8 Monocytes % 5.3 Eosinophils % 2.2 Basophils % 0.6 Absolute Neutrophils 5.7 Absolute Lymphocytes 1.7 Absolute Monocytes 0.4 Absolute Eosinophils 0.2 Absolute Basophils 0.0 Sodium 137.1 Potassium 3.3 L Chloride 97 L Carbon Dioxide 29 Anion Gap 11 BUN 12 Creatinine 0.78 Est GFR ( Amer) > 60 Est GFR (Non-Af Amer) > 60 Glucose 90 Calcium 8.6 Magnesium 1.8 Impressions: Chest X-Ray 05/08/17 00:00 IMPRESSION: NO ACUTE RADIOGRAPHIC FINDING IN THE CHEST. Qualifiers - * PATEINT BEING DISCHARGED WITH ANY OF THE FOLLOWING DIAGNOSIS?: No Plan Time Spent: Greater than 30 Minutes - Left AMA
== END 2017-05-10 12:33 | disposition left against medical advice (07) | DRG 894 ==
LOC: ER 01:19 → OBSVTOIN 03:56 → EH 03:56 → 3S 10:35
PROVIDERS: ADMIT Internal Medicine Geriatric Medicine; ATTEND Internal Medicine Geriatric Medicine
PROC: 0DB68ZX Excision of Stomach, Via Natural or Artificial Opening Endoscopic, Diagnostic (ICD-10-PCS; principal; 2017-05-09 11:00)
PROC: 0DJD8ZZ Inspection of Lower Intestinal Tract, Via Natural or Artificial Opening Endoscopic (ICD-10-PCS; 2017-05-09 11:00)
DX: F10.239 Alcohol dependence with withdrawal, unspecified (principal); K26.0 Acute duodenal ulcer with hemorrhage; J44.9 Chronic obstructive pulmonary disease, unspecified; F17.210 Nicotine dependence, cigarettes, uncomplicated; D72.829 Elevated white blood cell count, unspecified; Z82.49 Family history of ischemic heart disease and other diseases of the circulatory system; Z88.8 Allergy status to other drugs, medicaments and biological substances
CPT/HCPCS: 36415; 43239; 45378; 71045; 80048; 80053; 80307; 81001; 813; 82272; 83690; 83735; 85025; 85027; 88305; 88342; 93005; 93010; J1170; J1644; J2060; J2250; J2405; J2550; J2704; J3010; J3360; J3411; J3490; J7030; J7120; S0164

== ENCOUNTER 2017-05-11 19:17 | Inpatient (IN) | payer MEDICARE ==
[2017-05-11] MEDS ORDERED: ONDANSETRON HCL INJ/PF 4 MG/2 ML SDV IV ONE (20:13)
[2017-05-11] MEDS ORDERED: METOCLOPRAMIDE HCL INJ/PF 10 MG/2 ML SDV IV ONE (20:14)
[2017-05-11 20:31] LABS: ABSOLUTE EOSINOPHILS # (AUTO) 0.2 10^3/uL (0.0-0.6); ABSOLUTE LYMPHOCYTES (AUTO) 2.8 10^3/uL (0.5-4.7); ABSOLUTE MONOCYTES (AUTO) 0.6 10^3/uL (0.1-1.4); ABSOLUTE NEUT (AUTO) 9.1 10^3/uL (1.7-8.2); BASOPHILS % (AUTO) 0.3 % (0-2); EOSINOPHILS % (AUTO) 1.8 % (0-6); HEMATOCRIT 53.1 % (37.9-51.0); LYMPHOCYTES % (AUTO) 21.8 % (13-45); MEAN CORPUSCULAR HEMOGLOBIN 32.8 pg (27.0-33.4); MEAN CORPUSCULAR HGB CONC 34.6 g/dL (32.0-36.0); MEAN CORPUSCULAR VOLUME 95 fl (80-97); MONOCYTES % (AUTO) 4.9 % (3-13); PLATELET COUNT 207 10^3/uL (150-450); RED BLOOD COUNT 5.61 10^6/uL (4.35-5.55); RED CELL DISTRIBUTION WIDTH 13.5 % (11.5-14.0); SEGMENTED NEUTROPHILS % (AUTO) 71.2 % (42-78); TOTAL CELLS COUNTED % (AUTO) 100 %; WHITE BLOOD COUNT 12.8 10^3/uL (4.0-10.5)
[2017-05-11] MEDS: NORMAL SALINE 1000 ML 1,000 ML IV PRN ×2 (20:32→22:24)
[2017-05-11 20:33] LABS: ALANINE AMINOTRANSFERASE 115 U/L (21-72); ALBUMIN 4.9 g/dL (3.5-5.0); ALCOHOL 132 mg/dL (NONE DETECTED); ALKALINE PHOSPHATASE 72 U/L (38-126); ANION GAP 15 (5-19); ASPARTATE AMINO TRANSFERASE 92 U/L (17-59); BILIRUBIN,DIRECT 0.3 mg/dL (0.0-0.4); BILIRUBIN,TOTAL 0.7 mg/dL (0.2-1.3); BLOOD UREA NITROGEN 6 mg/dL (7-20); CALCIUM 9.9 mg/dL (8.4-10.2); CARBON DIOXIDE 32 mmol/L (22-30); CHLORIDE 93 mmol/L (98-107); GLUCOSE 115 mg/dL (75-110); LIPASE 105.6 U/L (23-300); POTASSIUM 3.1 mmol/L (3.6-5.0); SODIUM 140.4 mmol/L (137-145); TOTAL PROTEIN 7.7 g/dL (6.3-8.2)
[2017-05-11 20:40] LABS: HEMOGLOBIN 18.4 g/dL (13.5-17.0)
--- NOTE | 2017-05-11 20:59 | RADIOLOGY REPORT (SQ) ---
EXAM DESCRIPTION: CT HEAD WITHOUT COMPLETED DATE/TIME: 05/11/2017 8:51 pm REASON FOR STUDY: Head hurts, fell, and not sure if he had head COMPARISON: None. TECHNIQUE: Axial images acquired through the brain without intravenous contrast. Images reviewed wi th bone, brain and subdural windows. Images stored on PACS. All CT scanners at this facility use dose modulation, iterative reconstruction, and/or weight based d osing when appropriate to reduce radiation dose to as low as reasonably achievable (ALARA). [facility]: Dose Right [facility]: CareDose [facility]: Dose Right [facility]: Teradose 4D [facility]: Smart Converged Access RADIATION DOSE: CT Rad equipment meets quality standard of care and radiation dose reduction techniq ues were employed. CTDIvol: 64.1 mGy. DLP: 1163 mGy-cm. mGy. LIMITATIONS: None. FINDINGS: VENTRICLES: Normal size and contour. CEREBRUM: No masses. No hemorrhage. No midline shift. No evidence for acute infarction. Normal gra y/white matter differentiation. No areas of low density in the white matter. CEREBELLUM: No masses. No hemorrhage. No alteration of density. No evidence for acute infarction. EXTRAAXIAL SPACES: No fluid collections. No masses. ORBITS AND GLOBE: No intra- or extraconal masses. Normal contour of globe without masses. CALVARIUM: No fracture. PARANASAL SINUSES: No fluid or mucosal thickening. SOFT TISSUES: No mass or hematoma. OTHER: No other significant finding. IMPRESSION: NORMAL BRAIN CT WITHOUT CONTRAST. EVIDENCE OF ACUTE STROKE: NO. COMMENT: Quality ID # [id number]: Final reports with documentation of one or more dose reduction techniques (e.g., Automated exposure control, adjustment of the mA and/or kV according to patient size, use of iterative reconstruction technique) TECHNICAL DOCUMENTATION: JOB ID: [id number] [employer]- All Rights Reserved Reading location - IP/workstation name: [email or web address]
[2017-05-11 21:08] LABS: APPEARANCE,URINE CLEAR; BILIRUBIN,URINE NEGATIVE (NEGATIVE); COLOR,URINE STRAW; GLUCOSE, URINE NEGATIVE (NEGATIVE); KETONES,URINE NEGATIVE (NEGATIVE); LEUKOCYTE ESTERASE,URINE NEGATIVE (NEGATIVE); NITRITE,URINE NEGATIVE (NEGATIVE); PROTEIN,URINE NEGATIVE (NEGATIVE); URINE SPECIFIC GRAVITY 1.003; UROBILINOGEN,URINE NEGATIVE mg/dL (<2.0)
[2017-05-11 21:32] LABS: URINE AMPHETAMINES SCREEN NEGATIVE; URINE BARBITURATES SCREEN NEGATIVE; URINE BENZODIAZEPINES SCREEN NEGATIVE; URINE COCAINE SCREEN NEGATIVE; URINE MARIJUANA (THC) SCREEN NEGATIVE; URINE METHADONE SCREEN NEGATIVE; URINE PHENCYCLIDINE SCREEN NEGATIVE
[2017-05-11] MEDS ORDERED: ACETAMINOPHEN 325 MG TABLET PO ONE (22:24)
[2017-05-11] MEDS ORDERED: HYDROXYZINE PAMOATE 25 MG CAPSULE PO ONE (22:31)
[2017-05-11] MEDS ORDERED: LORAZEPAM 1 MG TABLET PO ONE (22:32)
--- NOTE | 2017-05-11 23:59 | ER Document Report ---
ED General - General Chief Complaint: Alcohol Withdrawl Stated Complaint: ABDOMINAL PAIN Time Seen by Provider: 05/11/17 20:11 Notes: Patient says he started vomiting a few hours ago. Initially, he noted some brown color to the vomitus, but now it is clear to slightly yellow. He has vomited numerous times. Says this is due to alcohol withdrawal as he drinks very heavily but has not had any alcohol in about 4 hours prior to arrival. He usually drinks a half a gallon to a gallon of liquor a day. Some days like today, he drinks beer. He is having lower abdominal pain in the midline region. He also fell today hitting himself on a bench. His head hurts although he does not note that he hit his head. Has lumbar back pain and is had surgery on the lumbar spine. Has been feeling cold, but has not noted any fever. Patient was just admitted to this hospital 2 days ago for alcohol withdrawal and what was likely a GI bleed because he was having black stools that were guaiac positive and he had a scope performed while in here that showed he had a duodenal ulcer. However, after just 2 days, the patient decided to leave AGAINST MEDICAL ADVICE. Now, he returns saying he regrets leaving and wishes to be readmitted. Has had his gallbladder removed and a right inguinal hernia repair. Lumbar surgery. History of atrial fibrillation. Suffers from anxiety. TRAVEL OUTSIDE OF THE [place] IN LAST 30 DAYS: No - Related Data Allergies/Adverse Reactions: morphine Allergy (Verified 05/12/17 00:55) diphenhydramine Adverse Reaction (Verified 05/08/17 02:25) Past Medical History - Social History Smoking Status: Current Every Day Smoker Chew tobacco use (# tins/day): No Frequency of alcohol use: Heavy Drug Abuse: None Family History: Reviewed & Not Pertinent Patient has suicidal ideation: No Patient has homicidal ideation: No Pulmonary Medical History: Reports: Hx COPD Psychiatric Medical History: Reports: Hx Anxiety Past Surgical History: Reports: Hx Abdominal Surgery - hernia, Hx Cholecystectomy, Hx Orthopedic Surgery - L4-L5 laminectomy., Other - right inguinal hernia repair; left ulnar nerve replacement. Review of Systems - Review of Systems Notes: REVIEW OF SYSTEMS: CONSTITUTIONAL : Denies fever but has felt cold. EENT: Denies eye, ear, nose or mouth or throat pain or other symptoms. CARDIOVASCULAR: Denies chest pain. RESPIRATORY: Denies cough, chest congestion, or shortness of breath. GASTROINTESTINAL: See HPI. GENITOURINARY: Denies difficulty or painful urinating, urinary frequency, blood in urine. MUSCULOSKELETAL: Denies back or neck pain. Denies joint pain or swelling. SKIN: Denies rash or skin lesions. NEUROLOGICAL: Denies LOC or altered mental status. Has a headache. Denies sensory loss or motor deficits. ALL OTHER SYSTEMS REVIEWED AND NEGATIVE. Physical Exam - Vital signs Interpretation: Tachycardic - Mild - Notes Notes: PHYSICAL EXAMINATION: GENERAL: Disheveled appearance. Intermittently vomiting. HEAD: Atraumatic, normocephalic. EYES: Pupils equal round and reactive to light, extraocular movements intact. NECK: Normal range of motion, supple. LUNGS: Breath sounds clear and equal bilaterally. Few scattered rhonchi and wheezes. HEART: Regular rate and rhythm without murmurs. ABDOMEN: Soft, nontender. No guarding or rebound. No masses. BACK: No significant tenderness throughout entire back. EXTREMITIES: Normal range of motion without pain. NEUROLOGICAL: Normal speech, normal gait. Normal sensory, motor, and reflex exams. Awake, alert, and oriented x3. Cranial nerves normal. PSYCH: Normal mood, normal affect. SKIN: Warm, dry, no rashes. Course - Re-evaluation Re-evalutation: 05/12/17 01:[address] Dean, hospitalist production machine computer operator, and he will admit the patient for hydration and handling any alcohol withdrawal complications - Laboratory Result Diagrams: 05/11/17 19:30 05/11/17 19:30 Laboratory results interpreted by me: 05/11/17 05/11/17 05/11/17 19:30 19:30 19:30 WBC 12.8 H RBC 5.61 H Hgb 18.4 H D Hct 53.1 H Absolute Neutrophils 9.1 H Potassium 3.1 L Chloride 93 L Carbon Dioxide 32 H BUN 6 L Glucose 115 H Magnesium 2.4 H AST 92 H ALT 115 H Urine Blood 05/11/17 20:35 WBC RBC Hgb Hct Absolute Neutrophils Potassium Chloride Carbon Dioxide BUN Glucose Magnesium AST ALT Urine Blood SMALL H Discharge - Discharge Clinical Impression: Alcohol withdrawal, Hypokalemia, Dehydration Condition: Good Disposition: ADMITTED OBSERVATION Admitting Provider: Hospitalist Unit Admitted: Telemetry
[2017-05-12] MEDS ORDERED: ONDANSETRON HCL INJ/PF 4 MG/2 ML SDV IV ONE (00:27)
[2017-05-12] MEDS ORDERED: PANTOPRAZOLE SODIUM 40 MG VIAL IV ONE (00:30)
[2017-05-12] MEDS ORDERED: POTASSIUM CHLORIDE 10 MEQ TABLET.SA PO ONE (00:30)
[2017-05-12 00:47] LABS: INTERNATIONAL RATION (INR) 0.85; PROTHROMBIN TIME 12.2 SEC (11.4-15.4)
[2017-05-12] MEDS ORDERED: THIAMINE HCL 100 MG, FOLIC ACID 1 MG in NORMAL SALINE 250 ML IV ONE (01:00)
[2017-05-12] MEDS ORDERED: HALOPERIDOL LACTATE INJ 5 MG/1 ML VIAL ONE (01:16)
[2017-05-12] MEDS ORDERED: IPRATROPIUM/ALBUTEROL 0.5-2.5 MG/3 ML AMPUL NEB PRN (01:20)
[2017-05-12] MEDS ORDERED: ACETAMINOPHEN 325 MG TABLET PO PRN (01:20)
[2017-05-12] MEDS ORDERED: NORMAL SALINE 1000 ML 1,000 ML IV SCH (01:30)
[2017-05-12] MEDS ORDERED: DIAZEPAM 5 MG TABLET PO SCH (01:30)
[2017-05-12] MEDS ORDERED: THIAMINE HCL INJ 200 MG/2 ML VIAL ONE (02:03)
[2017-05-12] MEDS ORDERED: FOLIC ACID INJ 5 MG/1 ML 10 ML VIAL ONE (02:04)
--- NOTE | 2017-05-12 02:58 | PDOC H&P ---
History of Present Illness Admission Date/PCP: 05/12/17 01:32 Patient complains of: Abdominal pain and alcohol withdrawal History of Present Illness: JOHN DIAMOND is a 56 year old male with a past medical history of depression, anxiety, tobacco and alcohol, recent duodenal ulcer, alcoholic gastritis. Patient was hospitalized 48 hours ago for melanotic stool EGD revealed nonbleeding duodenal ulcer and gastritis. Hemoglobin remained in normal limits however the patient left AGAINST MEDICAL ADVICE only to return today with epigastric pain stating he is committed to alcohol cessation but fears alcohol withdrawal. In the emergency room he is found to have mild epigastric pain, unremarkable CBC, acute alcohol intoxication and bizarre affect with delusions and hallucinations. He denies homicidal or suicidal ideation. He admits remote psychiatric hospitalization, denies current medications. He is referred to the hospitalist for admission. Past Medical History Pulmonary Medical History: Reports: Chronic Obstructive Pulmonary Disease (COPD) GI Medical History: Reports: Peptic Ulcer Disease, Other - Alcoholic gastritis Psychiatric Medical History: Reports: Alcohol Dependency, Depression, General Anxiety Disorder, Tobacco Dependency Past Surgical History Past Surgical History: Reports: Cholecystectomy, Orthopedic Surgery - L4-L5 laminectomy., Other - right inguinal hernia repair; left ulnar nerve replacement. Social History Information Source: Patient Lives with: Alone Smoking Status: Current Every Day Smoker Frequency of Alcohol Use: Heavy Amount of Alcoholic Beverages Per Day: 1/2 gallon of whiskey per day Hx Recreational Drug Use: No Drugs: None Hx Prescription Drug Abuse: No - Advance Directive Resuscitation Status: Full Code Family History Family History: COPD, Hypertension Parental Family History Reviewed: Yes Children Family History Reviewed: Yes Sibling(s) Family History Reviewed.: Yes Medication/Allergy Home Medications: No Home Medications 05/08/17 Allergies/Adverse Reactions: morphine Allergy (Verified 05/12/17 00:55) diphenhydramine Adverse Reaction (Verified 05/08/17 02:25) Review of Systems Constitutional: ABSENT: chills, fever(s), headache(s), weight gain, weight loss Eyes: ABSENT: visual disturbances Ears: ABSENT: hearing changes Cardiovascular: ABSENT: chest pain, dyspnea on exertion, edema, orthropnea, palpitations Respiratory: ABSENT: cough, hemoptysis Gastrointestinal: ABSENT: abdominal pain, constipation, diarrhea, hematemesis, hematochezia, nausea, vomiting Genitourinary: ABSENT: dysuria, hematuria Musculoskeletal: ABSENT: joint swelling Integumentary: ABSENT: rash, wounds Neurological: ABSENT: abnormal gait, abnormal speech, confusion, dizziness, focal weakness, syncope Psychiatric: ABSENT: anxiety, depression, homidical ideation, suicidal ideation Endocrine: ABSENT: cold intolerance, heat intolerance, polydipsia, polyuria Hematologic/Lymphatic: ABSENT: easy bleeding, easy bruising Physical Exam Vital Signs: Temp Pulse Resp BP Pulse Ox 24 H 135/74 H 93 05/12/17 02:01 05/12/17 02:01 05/12/17 02:01 General appearance: PRESENT: cooperative, disheveled, mild distress Head exam: PRESENT: atraumatic, normocephalic Eye exam: PRESENT: conjunctiva pink, EOMI, PERRLA. ABSENT: scleral icterus Ear exam: PRESENT: normal external ear exam Mouth exam: PRESENT: moist, tongue midline Neck exam: ABSENT: carotid bruit, JVD, lymphadenopathy, thyromegaly Respiratory exam: PRESENT: clear to auscultation alexei. ABSENT: rales, rhonchi, wheezes Cardiovascular exam: PRESENT: RRR. ABSENT: diastolic murmur, rubs, systolic murmur Pulses: PRESENT: normal dorsalis pedis pul Vascular exam: PRESENT: normal capillary refill GI/Abdominal exam: PRESENT: normal bowel sounds, soft, tenderness - Mild epigastric tenderness without guarding. ABSENT: distended, guarding, mass, organolmegaly, rebound Rectal exam: PRESENT: deferred Extremities exam: PRESENT: full ROM. ABSENT: calf tenderness, clubbing, pedal edema Neurological exam: PRESENT: alert, awake, oriented to person, oriented to place , oriented to time, oriented to situation, CN II-XII grossly intact. ABSENT: motor sensory deficit Psychiatric exam: PRESENT: anxious, unusual affect. ABSENT: homicidal ideation , suicidal ideation Focused psych exam: PRESENT: internal stimuli, paranoid, restlessness Skin exam: PRESENT: dry, intact, warm. ABSENT: cyanosis, rash Results Impressions: Head CT 05/11/17 20:13 IMPRESSION: NORMAL BRAIN CT WITHOUT CONTRAST. EVIDENCE OF ACUTE STROKE: NO. Assessment & Plan - Diagnosis (1) Alcoholic gastritis Is this a current diagnosis for this admission?: Yes Plan: Alcohol avoidance, IV proton pump inhibitor, no evidence for active bleed, follow-up CBC (2) Depression, psychotic Is this a current diagnosis for this admission?: Yes Plan: Trial Haldol as needed benzodiazepine, mental health consult. (3) Alcohol withdrawal Is this a current diagnosis for this admission?: Yes Plan: Thiamine and folate, benzodiazepine as needed, discharge planning for rehab referral. - Time Time Spent: 30 to 50 Minutes - Inpatient Certification Medical Necessity: Need Close Monitoring Due to Risk of Patient Decompensation
[2017-05-12] MEDS: HEPARIN SOD (PORCINE) 5,000 UNIT/ML 1 ML SYRINGE SUBCUT SCH ×3 (06:02→22:48)
[2017-05-12] MEDS: IPRATROPIUM/ALBUTEROL 0.5-2.5 MG/3 ML AMPUL NEB SCH ×2 (08:18→19:39)
[2017-05-12] MEDS: DIAZEPAM 5 MG TABLET PO SCH ×2 (09:51→21:11)
[2017-05-12] MEDS: PANTOPRAZOLE SODIUM 40 MG VIAL IV SCH ×2 (09:52→22:48)
[2017-05-12] MEDS: ONDANSETRON HCL INJ/PF 4 MG/2 ML SDV IV PRN ×3 (09:52→22:52)
[2017-05-12] MEDS: DOCUSATE SODIUM 100 MG CAPSULE PO SCH ×2 (09:58→17:46)
[2017-05-12] MEDS ORDERED: THIAMINE HCL 100 MG, FOLIC ACID 1 MG in NORMAL SALINE 250 ML IV SCH ×2 (10:00→22:00)
--- NOTE | 2017-05-12 10:05 | PDOC PROGRESS REPORT ---
Subjective Progress Note for:: 05/12/17 Subjective:: The patient is an unfortunate 56-year-old male with a past medical history significant for alcohol abuse. In addition he has known COPD and psychotic depression. He was recently hospitalized here at the hospital. During this hospitalization he underwent an upper endoscopy which revealed a nonbleeding duodenal ulcer as well as gastritis. His hemoglobin remained within normal limits however the patient left AGAINST MEDICAL ADVICE only to return last night with epigastric pain. He stated that he is committed to stopping alcohol cessation but fears he is beginning to go through alcohol withdrawal. In the emergency room he was having delusions and hallucinations. He was given IV Haldol. This morning when I saw the patient he is awake and alert and oriented 3. He has developed a severe tremor and is feeling quite agitated. He states that he wants to get through this alcohol withdrawal and he never wants to drink again. He denies fever chills. He has had no chest pain but feels as if his heart is racing at times. He is having nausea this morning but no vomiting. He continues to have mild epigastric pain. He states he had one liquid stool today but it was not as dark as it has been. He states that he is voiding without difficulty but that his urine is quite dark as well. Reason For Visit: ALCOHOLIC GASTRISTIS, ETOH WITHDRAW, DEPRESSION Physical Exam Vital Signs: Temp Pulse Resp BP Pulse Ox 68 15 144/68 H 95 05/12/17 08:19 05/12/17 09:01 05/12/17 09:01 05/12/17 09:01 General appearance: PRESENT: disheveled, mild distress, other - He is chronically ill-appearing. He has developed a significant tremor Head exam: PRESENT: atraumatic, normocephalic Mouth exam: PRESENT: dry mucosa Respiratory exam: PRESENT: clear to auscultation alexei. ABSENT: rales, rhonchi, wheezes Cardiovascular exam: PRESENT: +S1, +S2, tachycardia. ABSENT: diastolic murmur, systolic murmur GI/Abdominal exam: PRESENT: normal bowel sounds, tenderness - He is tender to palpation in the epigastric area. ABSENT: ascites, distended, guarding Rectal exam: PRESENT: deferred Extremities exam: PRESENT: full ROM. ABSENT: calf tenderness, clubbing, pedal edema Musculoskeletal exam: PRESENT: ambulatory Neurological exam: PRESENT: alert, awake, oriented to person, oriented to place , oriented to time, oriented to situation, CN II-XII grossly intact. ABSENT: motor sensory deficit Psychiatric exam: PRESENT: agitated, anxious, other - Patient states that he is still hallucinating Skin exam: PRESENT: dry, intact, warm. ABSENT: cyanosis, rash Results Impressions: Head CT 05/11/17 20:13 IMPRESSION: NORMAL BRAIN CT WITHOUT CONTRAST. EVIDENCE OF ACUTE STROKE: NO. Assessment & Plan - Diagnosis (1) Alcohol withdrawal Qualifiers: Complication of substance-induced condition: with delirium Qualified Code(s ): F10.231 - Alcohol dependence with withdrawal delirium Is this a current diagnosis for this admission?: Yes Plan: The patient is still hallucinating and has developed significant tremor. I am going to give him 2 mg of IV Ativan right now and we will schedule I milligram of IV Ativan every 6 hours with as needed Ativan for breakthrough. He is significantly on nauseated and he will have IV Zofran available as well. He has been started on thiamine and folic acid. We will have to watch him quite closely. (2) Alcoholic gastritis Is this a current diagnosis for this admission?: Yes Plan: He will continue Protonix 40 mg IV every 12 hours. (3) Duodenal ulcer disease Is this a current diagnosis for this admission?: Yes Plan: Due to his underlying alcohol abuse. He will continue IV Protonix twice daily. (4) Depression, psychotic Is this a current diagnosis for this admission?: Yes Plan: The patient is requesting Haldol this morning. I will start him on 2 mg of Haldol twice daily. He will have lorazepam for anxiety and his alcohol withdrawal. (5) COPD (chronic obstructive pulmonary disease) Is this a current diagnosis for this admission?: Yes Plan: No evidence of exacerbation (6) Alcohol abuse Is this a current diagnosis for this admission?: Yes Plan: He has expressed a desire to go through alcohol withdrawal in the hospital. He states he does not want to drink anymore. The discharge planners have been consulted about possible alcohol rehab programs. (7) Tobacco abuse Is this a current diagnosis for this admission?: Yes Plan: I will add a nicotine patch. (8) Elevated LFTs Is this a current diagnosis for this admission?: Yes Plan: Due to his underlying alcohol abuse. (9) Hypokalemia Is this a current diagnosis for this admission?: Yes Plan: This will be repleted. He will have a chemistry panel drawn in the morning. (10) Dehydration Is this a current diagnosis for this admission?: Yes Plan: Full code the patient appears to be quite dry. This is likely due to poor p.o. intake and alcohol abuse. I am going to start him on IV fluids today. - Time Time Spent with patient: 25-34 minutes - Inpatient Certification Medical Necessity: Need Close Monitoring Due to Risk of Patient Decompensation, Need For IV Fluids, Risk of Complication if Not Cared For in Hospital - At this point I believe the patient can be fully admitted to the hospital. He has expressed a desire to go through alcohol withdrawal here in the hospital. He is already developing severe tremor and hallucinations. I suspect he will be in the hospital for several days. He is at risk of seizure and significant decompensation while going through alcohol withdrawal. Timing of disposition will be determined by his clinical course., Other
[2017-05-12] MEDS ORDERED: LORAZEPAM INJ 2 MG/1 ML VIAL IV ONE (10:26)
[2017-05-12] MEDS: POTASSI CL 20 MEQ/NS 1L 1,000 ML IV PRN ×2 (10:39→23:17)
[2017-05-12] MEDS: NICOTINE 21 MG/24 HR PATCH.TD24 TD SCH (10:40)
[2017-05-12] MEDS ORDERED: HALOPERIDOL 2 MG TABLET PO ONE (12:00)
--- NOTE | 2017-05-12 12:15 | PSYCHOLOGICAL NOTE ---
Psych Note - Psych Note Psych Note: Reason for Consult: Detox; Alcohol Consent Permissions: none given at this time Patient states he wants to detox off of alcohol. He reports last drink was at 4pm. Patient was seen here recently for same. Patient disclosed that he called for assistance because of alcohol withdrawal. He states he has had withdrawal symptoms in the past but "this is the first time to this degree." He continued to state that he would like assistance with sobriety. Patient discloses visual hallucinations of seeing tiny pieces of hair or a chance "everywhere... I cannot tell the difference between the ants and the tiny piece of hair." He continues state that he is seeing faces jump out at him and reports "he started out family now they are just awful." Patient reports drinking approximately half a gallon to a gallon a day of whiskey, has been drinking for the last 5 years and has attempted to quit "a bunch of times." Patient denies ever receiving formal substance abuse treatment both inpatient and outpatient but states "kicked out my pride and I called for help." Patient reports he used to drink alcohol to help with stress but reports it no longer helps. Patient is alert and orientated to person, place, time and circumstance. Mood is dysphoric with flat affect. Patient denies suicidal and homicidal ideation. Patient discloses visual hallucinations. Thought processes are organized and linear. Conversational speech was within normal rate, tone and prosody. Intellectual abilities appear to be within the average range. Attention and concentration were fair. Insight, judgment, impulse control are fair. Medication recommendations per [facility]'s contracted psychiatrist, MD Bharathi, are as follows: 1. Please discontinue Haldol 2. Please discontinue Valium 3. Continue [facility] protocol 291.81 (F10.232) alcohol withdrawal; with perceptual disturbances Impression\\plan: Patient is considered psychiatrically clear. Patient discloses wanting assistance for detox. He has been admitted to the hospital for withdrawal symptoms. Patient is currently demonstrating psychosis (i.e. perceptual disturbances/visual hallucinations) connected to withdrawal. Outpatient substance abuse resources will be provided to data recovery planner. Dr. Narayan was consulted on the care and management of this patient.
[2017-05-12] MEDS: FOLIC ACID 1 MG TABLET PO SCH (13:20)
[2017-05-12] MEDS: THIAMINE HCL 100 MG TABLET PO SCH (13:30)
[2017-05-12] MEDS: MULTIVITAMIN TABLET PO SCH (13:40)
[2017-05-12] MEDS: LORAZEPAM INJ 2 MG/1 ML VIAL IV SCH ×2 (15:00→21:11)
[2017-05-12] MEDS ORDERED: KETOROLAC TROMETHAMINE INJ/PF 30 MG/1 ML SDV IV PRN (17:39)
[2017-05-12] MEDS: LORAZEPAM INJ 2 MG/1 ML VIAL IV PRN (17:43)
[2017-05-12] MEDS ORDERED: HALOPERIDOL 2 MG TABLET ONE (22:33)
[2017-05-12] MEDS: HALOPERIDOL 2 MG TABLET PO SCH (22:45)
[2017-05-13] MEDS: LORAZEPAM INJ 2 MG/1 ML VIAL IV PRN ×5 (00:35→23:35)
[2017-05-13] MEDS: LORAZEPAM INJ 2 MG/1 ML VIAL IV SCH ×4 (02:28→23:42)
[2017-05-13] MEDS: HEPARIN SOD (PORCINE) 5,000 UNIT/ML 1 ML SYRINGE SUBCUT SCH ×3 (06:34→21:57)
[2017-05-13 08:06] LABS: ALANINE AMINOTRANSFERASE 81 U/L (21-72); ALBUMIN 3.4 g/dL (3.5-5.0); ALKALINE PHOSPHATASE 54 U/L (38-126); ANION GAP 7 (5-19); ASPARTATE AMINO TRANSFERASE 35 U/L (17-59); BILIRUBIN,DIRECT 0.1 mg/dL (0.0-0.4); BILIRUBIN,TOTAL 0.6 mg/dL (0.2-1.3); BLOOD UREA NITROGEN 10 mg/dL (7-20); CALCIUM 8.7 mg/dL (8.4-10.2); CARBON DIOXIDE 28 mmol/L (22-30); CHLORIDE 104 mmol/L (98-107); GLUCOSE 97 mg/dL (75-110); POTASSIUM 3.6 mmol/L (3.6-5.0); SODIUM 139.1 mmol/L (137-145); TOTAL PROTEIN 5.3 g/dL (6.3-8.2)
[2017-05-13] MEDS: IPRATROPIUM/ALBUTEROL 0.5-2.5 MG/3 ML AMPUL NEB SCH ×2 (08:06→19:44)
[2017-05-13 08:08] LABS: HEMATOCRIT 40.4 % (37.9-51.0); MEAN CORPUSCULAR HEMOGLOBIN 32.7 pg (27.0-33.4); MEAN CORPUSCULAR HGB CONC 33.9 g/dL (32.0-36.0); MEAN CORPUSCULAR VOLUME 97 fl (80-97); PLATELET COUNT 157 10^3/uL (150-450); RED BLOOD COUNT 4.19 10^6/uL (4.35-5.55); RED CELL DISTRIBUTION WIDTH 13.3 % (11.5-14.0); WHITE BLOOD COUNT 9.7 10^3/uL (4.0-10.5)
[2017-05-13 08:10] LABS: HEMOGLOBIN 13.7 g/dL (13.5-17.0)
[2017-05-13] MEDS: NICOTINE 21 MG/24 HR PATCH.TD24 TD SCH (09:20)
[2017-05-13] MEDS: DOCUSATE SODIUM 100 MG CAPSULE PO SCH ×2 (09:20→17:29)
[2017-05-13] MEDS: DIAZEPAM 5 MG TABLET PO SCH (09:20)
[2017-05-13] MEDS: HALOPERIDOL 2 MG TABLET PO SCH ×2 (09:20→21:57)
[2017-05-13] MEDS: PANTOPRAZOLE SODIUM 40 MG VIAL IV SCH ×2 (09:21→21:57)
[2017-05-13] MEDS: POTASSI CL 20 MEQ/NS 1L 1,000 ML IV PRN ×2 (09:22→20:32)
[2017-05-13] MEDS: THIAMINE HCL 100 MG TABLET PO SCH (12:22)
[2017-05-13] MEDS: FOLIC ACID 1 MG TABLET PO SCH (12:22)
[2017-05-13] MEDS: MULTIVITAMIN TABLET PO SCH (12:22)
[2017-05-13] MEDS: ONDANSETRON HCL INJ/PF 4 MG/2 ML SDV IV PRN ×2 (14:42→21:57)
--- NOTE | 2017-05-13 15:38 | PDOC PROGRESS REPORT ---
Subjective Progress Note for:: 05/13/17 Subjective:: The patient is an unfortunate 56-year-old male with a past medical history significant for alcohol abuse. In addition he has known COPD and psychotic depression. He was recently hospitalized here at the hospital. During this hospitalization he underwent an upper endoscopy which revealed a nonbleeding duodenal ulcer as well as gastritis. His hemoglobin remained within normal limits however the patient left AGAINST MEDICAL ADVICE only to return with epigastric pain. He stated that he is committed to stopping alcohol cessation but fears he is beginning to go through alcohol withdrawal. In the emergency room he was having delusions and hallucinations. He was given IV Haldol. He was admitted to the hospital and started on IV Ativan. Today when I saw him he still has a significant tremor and states that he is still having some mild hallucinations. He states that the Ativan wears off before he is able to get another dose and that the hallucinations and tremors get worse. He denies fever chills. He states he has had some heart palpitations and chest pain. He has had nausea but no vomiting. He continues to have some mild epigastric pain but that is somewhat better. He cannot recall if he has had a bowel movement. He is voiding without difficulty. Reason For Visit: ETOH WITHDRAWAL Physical Exam Vital Signs: Temp Pulse Resp BP Pulse Ox 98.5 F 65 18 150/70 H 96 05/13/17 07:56 05/13/17 08:06 05/13/17 08:06 05/13/17 07:56 05/13/17 07:56 Intake & Output 05/12/17 05/13/17 05/14/17 06:59 06:59 06:59 Intake Total 3569 Output Total 1825 Balance 1744 Weight 90.71 kg 69.2 kg General appearance: PRESENT: disheveled, other - Appears to be somewhat anxious and agitated Head exam: PRESENT: atraumatic, normocephalic Mouth exam: PRESENT: moist, tongue midline Respiratory exam: PRESENT: clear to auscultation alexei. ABSENT: rales, rhonchi, wheezes Cardiovascular exam: PRESENT: +S1, +S2, tachycardia. ABSENT: diastolic murmur, systolic murmur GI/Abdominal exam: PRESENT: normal bowel sounds, soft, tenderness - Somewhat tender to palpation in the epigastric area. ABSENT: distended, guarding, mass, organolmegaly, rebound Rectal exam: PRESENT: deferred Extremities exam: PRESENT: full ROM. ABSENT: calf tenderness, clubbing, pedal edema Neurological exam: PRESENT: alert, awake, oriented to person, oriented to place , oriented to time, oriented to situation, CN II-XII grossly intact. ABSENT: motor sensory deficit Psychiatric exam: PRESENT: agitated, anxious, other - Reports hallucinations but they are improving Skin exam: PRESENT: dry, intact, warm. ABSENT: cyanosis, rash Results Laboratory Results: 05/13/17 07:05 05/13/17 07:05 05/13/17 05/13/17 07:05 07:05 WBC 9.7 RBC 4.19 L Hgb 13.7 D Hct 40.4 MCV 97 MCH 32.7 MCHC 33.9 RDW 13.3 Plt Count 157 Sodium 139.1 Potassium 3.6 Chloride 104 Carbon Dioxide 28 Anion Gap 7 BUN 10 Creatinine 0.74 Est GFR ( Amer) > 60 Est GFR (Non-Af Amer) > 60 Glucose 97 Calcium 8.7 Magnesium 2.0 Total Bilirubin 0.6 AST 35 ALT 81 H Alkaline Phosphatase 54 Total Protein 5.3 L Albumin 3.4 L Impressions: Head CT 05/11/17 20:13 IMPRESSION: NORMAL BRAIN CT WITHOUT CONTRAST. EVIDENCE OF ACUTE STROKE: NO. Assessment & Plan - Diagnosis (1) Alcohol withdrawal Qualifiers: Complication of substance-induced condition: with delirium Qualified Code(s ): F10.231 - Alcohol dependence with withdrawal delirium Is this a current diagnosis for this admission?: Yes Plan: He will continue IV Ativan. Overall he is slowly improving. Continue gentle hydration as well. (2) Alcoholic gastritis Is this a current diagnosis for this admission?: Yes Plan: He will continue Protonix 40 mg IV every 12 hours. (3) Duodenal ulcer disease Is this a current diagnosis for this admission?: Yes Plan: Due to his underlying alcohol abuse. He will continue IV Protonix twice daily. (4) Depression, psychotic Is this a current diagnosis for this admission?: Yes Plan: The patient's Haldol has been stopped. He is still having some hallucinations but I believe this is due to alcohol withdrawal. Psychiatry is following and we appreciate their input. (5) COPD (chronic obstructive pulmonary disease) Is this a current diagnosis for this admission?: Yes Plan: No evidence of exacerbation (6) Alcohol abuse Is this a current diagnosis for this admission?: Yes Plan: He has expressed a desire to go through alcohol withdrawal in the hospital. He states he does not want to drink anymore. The discharge planners have been consulted about possible alcohol rehab programs. (7) Tobacco abuse Is this a current diagnosis for this admission?: Yes Plan: Continue nicotine patch (8) Elevated LFTs Is this a current diagnosis for this admission?: Yes Plan: Due to his underlying alcohol abuse. (9) Hypokalemia Is this a current diagnosis for this admission?: Yes Plan: Repleted and resolved (10) Dehydration Is this a current diagnosis for this admission?: Yes Plan: Continue gentle hydration. His dehydration seems to be improving - Time Time Spent with patient: 25-34 minutes - Inpatient Certification Based on my medical assessment, after consideration of the patient's comorbidities, presenting symptoms, or acuity I expect that the services needed warrant INPATIENT care.: Yes I certify that my determination is in accordance with my understanding of Medicare's requirements for reasonable and necessary INPATIENT services [42 CFR 412.3e].: Yes Medical Necessity: Need For IV Fluids, Other - Inpatient hospitalization remains necessary. The patient is going through alcohol withdrawal. He is requiring parenteral therapies. He would like to detox here in the hospital and then get treatment for his alcohol abuse at discharge. Timing of disposition will be determined by his clinical course
[2017-05-14] MEDS: LORAZEPAM INJ 2 MG/1 ML VIAL IV SCH ×2 (02:45→08:32)
[2017-05-14 05:09] LABS: ABSOLUTE BASOPHILS # (AUTO) 0.1 10^3/uL (0.0-0.2); ABSOLUTE EOSINOPHILS # (AUTO) 0.2 10^3/uL (0.0-0.6); ABSOLUTE LYMPHOCYTES (AUTO) 2.2 10^3/uL (0.5-4.7); ABSOLUTE MONOCYTES (AUTO) 0.6 10^3/uL (0.1-1.4); ABSOLUTE NEUT (AUTO) 5.6 10^3/uL (1.7-8.2); BASOPHILS % (AUTO) 0.8 % (0-2); EOSINOPHILS % (AUTO) 2.4 % (0-6); HEMATOCRIT 39.4 % (37.9-51.0); HEMOGLOBIN 13.3 g/dL (13.5-17.0); LYMPHOCYTES % (AUTO) 25.9 % (13-45); MEAN CORPUSCULAR HEMOGLOBIN 32.6 pg (27.0-33.4); MEAN CORPUSCULAR HGB CONC 33.7 g/dL (32.0-36.0); MEAN CORPUSCULAR VOLUME 97 fl (80-97); MONOCYTES % (AUTO) 6.4 % (3-13); PLATELET COUNT 158 10^3/uL (150-450); RED BLOOD COUNT 4.07 10^6/uL (4.35-5.55); RED CELL DISTRIBUTION WIDTH 13.5 % (11.5-14.0); SEGMENTED NEUTROPHILS % (AUTO) 64.5 % (42-78); TOTAL CELLS COUNTED % (AUTO) 100 %; WHITE BLOOD COUNT 8.7 10^3/uL (4.0-10.5)
[2017-05-14 05:34] LABS: ALANINE AMINOTRANSFERASE 81 U/L (21-72); ALBUMIN 3.3 g/dL (3.5-5.0); ALKALINE PHOSPHATASE 44 U/L (38-126); ANION GAP 5 (5-19); ASPARTATE AMINO TRANSFERASE 36 U/L (17-59); BILIRUBIN,DIRECT 0.4 mg/dL (0.0-0.4); BILIRUBIN,TOTAL 0.6 mg/dL (0.2-1.3); BLOOD UREA NITROGEN 8 mg/dL (7-20); CALCIUM 8.5 mg/dL (8.4-10.2); CARBON DIOXIDE 25 mmol/L (22-30); CHLORIDE 105 mmol/L (98-107); GLUCOSE 145 mg/dL (75-110); POTASSIUM 3.7 mmol/L (3.6-5.0); SODIUM 134.9 mmol/L (137-145); TOTAL PROTEIN 5.3 g/dL (6.3-8.2)
[2017-05-14] MEDS: LORAZEPAM INJ 2 MG/1 ML VIAL IV PRN ×2 (06:19→11:43)
[2017-05-14] MEDS: HEPARIN SOD (PORCINE) 5,000 UNIT/ML 1 ML SYRINGE SUBCUT SCH ×3 (06:19→21:19)
[2017-05-14] MEDS: ONDANSETRON HCL INJ/PF 4 MG/2 ML SDV IV PRN ×3 (08:32→21:34)
[2017-05-14] MEDS: IPRATROPIUM/ALBUTEROL 0.5-2.5 MG/3 ML AMPUL NEB SCH ×2 (08:52→19:42)
[2017-05-14] MEDS: NICOTINE 21 MG/24 HR PATCH.TD24 TD SCH (09:26)
[2017-05-14] MEDS: PANTOPRAZOLE SODIUM 40 MG VIAL IV SCH ×2 (09:26→21:20)
[2017-05-14] MEDS: HALOPERIDOL 2 MG TABLET PO SCH ×2 (09:26→21:33)
[2017-05-14] MEDS: DOCUSATE SODIUM 100 MG CAPSULE PO SCH ×2 (09:27→17:58)
[2017-05-14] MEDS: THIAMINE HCL 100 MG TABLET PO SCH (11:06)
[2017-05-14] MEDS: MULTIVITAMIN TABLET PO SCH (11:06)
[2017-05-14] MEDS: FOLIC ACID 1 MG TABLET PO SCH (11:06)
--- NOTE | 2017-05-14 12:51 | PDOC PROGRESS REPORT ---
Subjective Progress Note for:: 05/14/17 Subjective:: The patient is an unfortunate 56-year-old male with a past medical history significant for alcohol abuse. In addition he has known COPD and psychotic depression. He was recently hospitalized here at the hospital. During this hospitalization he underwent an upper endoscopy which revealed a nonbleeding duodenal ulcer as well as gastritis. His hemoglobin remained within normal limits however the patient left AGAINST MEDICAL ADVICE only to return with epigastric pain. He stated that he is committed to stopping alcohol cessation but fears he is beginning to go through alcohol withdrawal. In the emergency room he was having delusions and hallucinations. He was given IV Haldol. patient is still undergoing withdrawal for some tremors today and is requesting his Ativan to be increased if possible Reason For Visit: ETOH WITHDRAWAL Physical Exam Vital Signs: Temp Pulse Resp BP Pulse Ox 98.4 F 60 16 145/89 H 96 05/14/17 00:52 05/14/17 08:52 05/14/17 08:52 05/14/17 00:52 05/14/17 08:52 Intake & Output 05/13/17 05/14/17 05/15/17 06:59 06:59 06:59 Intake Total 3569 3435 Output Total 1825 2300 Balance 1744 1135 Weight 69.2 kg 71 kg General appearance: PRESENT: no acute distress, other - Resting tremors Head exam: PRESENT: atraumatic Ear exam: PRESENT: normal external ear exam Mouth exam: PRESENT: moist, tongue midline Neck exam: ABSENT: carotid bruit, JVD, lymphadenopathy, thyromegaly Respiratory exam: PRESENT: clear to auscultation alexei. ABSENT: rales, rhonchi, wheezes Cardiovascular exam: PRESENT: RRR. ABSENT: diastolic murmur, rubs, systolic murmur Pulses: PRESENT: normal dorsalis pedis pul GI/Abdominal exam: PRESENT: normal bowel sounds, soft. ABSENT: distended, guarding, mass, organolmegaly, rebound, tenderness Rectal exam: PRESENT: deferred Neurological exam: PRESENT: alert, awake, oriented to person, oriented to place , oriented to time, oriented to situation, CN II-XII grossly intact, motor sensory deficit - Asterexis Psychiatric exam: PRESENT: anxious Results Laboratory Results: 05/14/17 04:09 05/14/17 04:09 05/14/17 05/14/17 04:09 04:09 WBC 8.7 RBC 4.07 L Hgb 13.3 L Hct 39.4 MCV 97 MCH 32.6 MCHC 33.7 RDW 13.5 Plt Count 158 Seg Neutrophils % 64.5 Lymphocytes % 25.9 Monocytes % 6.4 Eosinophils % 2.4 Basophils % 0.8 Absolute Neutrophils 5.6 Absolute Lymphocytes 2.2 Absolute Monocytes 0.6 Absolute Eosinophils 0.2 Absolute Basophils 0.1 Sodium 134.9 L Potassium 3.7 Chloride 105 Carbon Dioxide 25 Anion Gap 5 BUN 8 Creatinine 0.73 Est GFR ( Amer) > 60 Est GFR (Non-Af Amer) > 60 Glucose 145 H Calcium 8.5 Magnesium 1.9 Total Bilirubin 0.6 AST 36 ALT 81 H Alkaline Phosphatase 44 Total Protein 5.3 L Albumin 3.3 L Impressions: Head CT 05/11/17 20:13 IMPRESSION: NORMAL BRAIN CT WITHOUT CONTRAST. EVIDENCE OF ACUTE STROKE: NO. Assessment & Plan - Time Time Spent with patient: 15-24 minutes Medications reviewed and adjusted accordingly: Yes Anticipated discharge: Acute Rehab Within: within 72 hours - Plan Summary Plan Summary: 1. Delirium tremens /alcohol withdrawal currently on IV Ativan. Will go ahead and increase his scheduled Ativan as he is still tremulous and having some withdrawal symptoms. 2. Alcoholic gastritis currently on PPI twice a day 3. Peptic ulcer disease 4. Depression currently off Haldol. He has been seen by psychiatry as well 5. COPD currently stable with no evidence of exacerbation 6. Alcohol abuse patient is apparently interested in rehabilitation and this is being looked into by discharge planners 7. Tobacco abuse currently on nicotine patch 8. Transaminitis secondary to alcohol abuse 9. Hypokalemia resolved 10. Dehydration we will continue with IV fluid
[2017-05-14] MEDS: OXYCODONE-ACETAMINOPHEN 5-325 MG TABLET PO PRN ×2 (15:08→21:16)
[2017-05-14] MEDS ORDERED: LOPERAMIDE HCL 2 MG CAPSULE PO PRN (16:15)
[2017-05-14] MEDS: LORAZEPAM 1 MG TABLET PO SCH (17:57)
[2017-05-14] MEDS: MAG HYDROX/AL HYDROX/SIMETH SUSP 30 ML UDCUP PO PRN (17:57)
[2017-05-15] MEDS: LORAZEPAM 1 MG TABLET PO SCH ×4 (03:22→17:27)
[2017-05-15] MEDS: OXYCODONE-ACETAMINOPHEN 5-325 MG TABLET PO PRN ×4 (03:25→21:43)
[2017-05-15] MEDS: HEPARIN SOD (PORCINE) 5,000 UNIT/ML 1 ML SYRINGE SUBCUT SCH ×3 (05:45→21:43)
[2017-05-15] MEDS: ONDANSETRON HCL INJ/PF 4 MG/2 ML SDV IV PRN ×3 (05:54→19:36)
[2017-05-15] MEDS: IPRATROPIUM/ALBUTEROL 0.5-2.5 MG/3 ML AMPUL NEB SCH ×2 (07:44→19:32)
[2017-05-15] MEDS: LORAZEPAM INJ 2 MG/1 ML VIAL IV PRN ×2 (08:40→14:25)
[2017-05-15] MEDS: NICOTINE 21 MG/24 HR PATCH.TD24 TD SCH (09:36)
[2017-05-15] MEDS: HALOPERIDOL 2 MG TABLET PO SCH ×2 (09:36→21:43)
[2017-05-15] MEDS: DOCUSATE SODIUM 100 MG CAPSULE PO SCH ×2 (09:36→17:24)
[2017-05-15] MEDS: MULTIVITAMIN TABLET PO SCH (12:02)
[2017-05-15] MEDS: FOLIC ACID 1 MG TABLET PO SCH (12:02)
[2017-05-15] MEDS: THIAMINE HCL 100 MG TABLET PO SCH (12:02)
[2017-05-15] MEDS: MAG HYDROX/AL HYDROX/SIMETH SUSP 30 ML UDCUP PO PRN ×2 (14:16→20:14)
--- NOTE | 2017-05-15 16:43 | PDOC PROGRESS REPORT ---
Subjective Subjective:: The patient is an unfortunate 56-year-old male with a past medical history significant for alcohol abuse. In addition he has known COPD and psychotic depression. He was recently hospitalized here at the hospital. During this hospitalization he underwent an upper endoscopy which revealed a nonbleeding duodenal ulcer as well as gastritis. His hemoglobin remained within normal limits however the patient left AGAINST MEDICAL ADVICE only to return with epigastric pain. He stated that he is committed to stopping alcohol cessation but fears he is beginning to go through alcohol withdrawal. In the emergency room he was having delusions and hallucinations. He was given IV Haldol. patient is still undergoing withdrawal but appears to be better. He is c/o nausea Reason For Visit: ETOH WITHDRAWAL Physical Exam Vital Signs: Temp Pulse Resp BP Pulse Ox 98.5 F 114 H 20 126/69 H 98 05/15/17 14:44 05/15/17 14:44 05/15/17 14:44 05/15/17 14:44 05/15/17 15:10 Intake & Output 05/14/17 05/15/17 05/16/17 06:59 06:59 06:59 Intake Total 3435 2417 Output Total 2300 1050 Balance 1135 1367 Weight 71 kg 85.9 kg General appearance: PRESENT: no acute distress Eye exam: PRESENT: conjunctiva pink, EOMI, PERRLA. ABSENT: scleral icterus Ear exam: PRESENT: normal external ear exam Neck exam: ABSENT: carotid bruit, JVD, lymphadenopathy, thyromegaly Respiratory exam: PRESENT: clear to auscultation alexei. ABSENT: rales, rhonchi, wheezes Cardiovascular exam: PRESENT: RRR. ABSENT: diastolic murmur, rubs, systolic murmur Rectal exam: PRESENT: deferred Musculoskeletal exam: PRESENT: other - resting tremors Neurological exam: PRESENT: alert, awake, oriented to person, oriented to time, oriented to situation Psychiatric exam: PRESENT: appropriate affect, normal mood. ABSENT: homicidal ideation, suicidal ideation Results Laboratory Results: 05/14/17 04:09 05/14/17 04:09 Impressions: Head CT 05/11/17 20:13 IMPRESSION: NORMAL BRAIN CT WITHOUT CONTRAST. EVIDENCE OF ACUTE STROKE: NO. Assessment & Plan - Inpatient Certification Based on my medical assessment, after consideration of the patient's comorbidities, presenting symptoms, or acuity I expect that the services needed warrant INPATIENT care.: Yes Medical Necessity: Need For IV Fluids, Risk of Complication if Not Cared For in Hospital - Plan Summary Plan Summary: 1. Delirium tremens /alcohol withdrawal currently on IV Ativan. Will go ahead and increase his scheduled Ativan as he is still tremulous and having some withdrawal symptoms. 2. Alcoholic gastritis currently on PPI twice a day 3. Peptic ulcer disease- Continue PPI, Maalox 4. Depression currently off Haldol. He has been seen by psychiatry as well 5. COPD currently stable with no evidence of exacerbation 6. Alcohol abuse patient is apparently interested in rehabilitation and this is being looked into by discharge planners. If not he will go home for outpatient care 7. Tobacco abuse currently on nicotine patch 8. Transaminitis secondary to alcohol abuse. Follow labs 9. Hypokalemia resolved 10. Dehydration we will continue with IV fluid
[2017-05-16] MEDS: LORAZEPAM 1 MG TABLET PO SCH ×6 (00:02→23:27)
[2017-05-16] MEDS: OXYCODONE-ACETAMINOPHEN 5-325 MG TABLET PO PRN ×4 (04:17→22:01)
[2017-05-16] MEDS: HEPARIN SOD (PORCINE) 5,000 UNIT/ML 1 ML SYRINGE SUBCUT SCH ×3 (05:52→21:09)
[2017-05-16 07:04] LABS: ABSOLUTE BASOPHILS # (AUTO) 0.1 10^3/uL (0.0-0.2); ABSOLUTE EOSINOPHILS # (AUTO) 0.2 10^3/uL (0.0-0.6); ABSOLUTE LYMPHOCYTES (AUTO) 1.9 10^3/uL (0.5-4.7); ABSOLUTE MONOCYTES (AUTO) 0.6 10^3/uL (0.1-1.4); ABSOLUTE NEUT (AUTO) 4.2 10^3/uL (1.7-8.2); BASOPHILS % (AUTO) 1.1 % (0-2); EOSINOPHILS % (AUTO) 2.9 % (0-6); HEMATOCRIT 41.7 % (37.9-51.0); LYMPHOCYTES % (AUTO) 26.7 % (13-45); MEAN CORPUSCULAR HEMOGLOBIN 32.7 pg (27.0-33.4); MEAN CORPUSCULAR HGB CONC 33.5 g/dL (32.0-36.0); MEAN CORPUSCULAR VOLUME 97 fl (80-97); PLATELET COUNT 202 10^3/uL (150-450); RED BLOOD COUNT 4.28 10^6/uL (4.35-5.55); RED CELL DISTRIBUTION WIDTH 13.6 % (11.5-14.0); SEGMENTED NEUTROPHILS % (AUTO) 60.3 % (42-78); TOTAL CELLS COUNTED % (AUTO) 100 %
[2017-05-16 07:24] LABS: ANION GAP 6 (5-19); BLOOD UREA NITROGEN 17 mg/dL (7-20); CARBON DIOXIDE 31 mmol/L (22-30); CHLORIDE 100 mmol/L (98-107); GLUCOSE 114 mg/dL (75-110); POTASSIUM 4.1 mmol/L (3.6-5.0); SODIUM 137.4 mmol/L (137-145)
[2017-05-16] MEDS: IPRATROPIUM/ALBUTEROL 0.5-2.5 MG/3 ML AMPUL NEB SCH ×2 (08:06→20:20)
[2017-05-16] MEDS: ONDANSETRON HCL INJ/PF 4 MG/2 ML SDV IV PRN ×3 (08:40→19:33)
[2017-05-16] MEDS: HALOPERIDOL 2 MG TABLET PO SCH ×2 (10:16→21:08)
[2017-05-16] MEDS: NICOTINE 21 MG/24 HR PATCH.TD24 TD SCH (10:18)
[2017-05-16] MEDS: DOCUSATE SODIUM 100 MG CAPSULE PO SCH ×2 (10:19→17:30)
[2017-05-16] MEDS: MULTIVITAMIN TABLET PO SCH (11:43)
[2017-05-16] MEDS: THIAMINE HCL 100 MG TABLET PO SCH (11:43)
[2017-05-16] MEDS: FOLIC ACID 1 MG TABLET PO SCH (11:43)
[2017-05-16] MEDS: MAG HYDROX/AL HYDROX/SIMETH SUSP 30 ML UDCUP PO PRN ×2 (16:35→22:01)
--- NOTE | 2017-05-16 17:56 | PDOC PROGRESS REPORT ---
Subjective Progress Note for:: 05/16/17 Subjective:: The patient is an unfortunate 56-year-old male with a past medical history significant for alcohol abuse. In addition he has known COPD and psychotic depression. He was recently hospitalized here at the hospital. During this hospitalization he underwent an upper endoscopy which revealed a nonbleeding duodenal ulcer as well as gastritis. His hemoglobin remained within normal limits however the patient left AGAINST MEDICAL ADVICE only to return with epigastric pain. He stated that he is committed to stopping alcohol cessation but fears he is beginning to go through alcohol withdrawal. In the emergency room he was having delusions and hallucinations. He was given IV Haldol. patient istill has some tremors but improved. Reason For Visit: ETOH WITHDRAWAL Physical Exam Vital Signs: Temp Pulse Resp BP Pulse Ox 98.2 F 58 L 16 141/64 H 94 05/16/17 16:05 05/16/17 16:05 05/16/17 16:05 05/16/17 16:05 05/16/17 16:05 Intake & Output 05/15/17 05/16/17 05/17/17 06:59 06:59 06:59 Intake Total 2417 3163 Output Total 1050 150 Balance 1367 3013 Weight 85.9 kg 77 kg General appearance: PRESENT: no acute distress, well-developed, well-nourished Head exam: PRESENT: atraumatic Eye exam: PRESENT: conjunctiva pink, EOMI, PERRLA. ABSENT: scleral icterus Neck exam: ABSENT: carotid bruit, JVD, lymphadenopathy, thyromegaly Respiratory exam: PRESENT: clear to auscultation alexei. ABSENT: rales, rhonchi, wheezes Cardiovascular exam: PRESENT: RRR. ABSENT: diastolic murmur, rubs, systolic murmur GI/Abdominal exam: PRESENT: normal bowel sounds, soft. ABSENT: distended, guarding, mass, organolmegaly, rebound, tenderness Neurological exam: PRESENT: alert, awake, oriented to person, oriented to place , oriented to situation, other - tremors Psychiatric exam: PRESENT: appropriate affect Results Laboratory Results: 05/16/17 06:16 05/16/17 06:16 05/16/17 05/16/17 06:16 06:16 WBC 7.0 RBC 4.28 L Hgb 14.0 Hct 41.7 MCV 97 MCH 32.7 MCHC 33.5 RDW 13.6 Plt Count 202 Seg Neutrophils % 60.3 Lymphocytes % 26.7 Monocytes % 9.0 Eosinophils % 2.9 Basophils % 1.1 Absolute Neutrophils 4.2 Absolute Lymphocytes 1.9 Absolute Monocytes 0.6 Absolute Eosinophils 0.2 Absolute Basophils 0.1 Sodium 137.4 Potassium 4.1 Chloride 100 Carbon Dioxide 31 H Anion Gap 6 BUN 17 Creatinine 0.87 Est GFR ( Amer) > 60 Est GFR (Non-Af Amer) > 60 Glucose 114 H Calcium 9.0 Impressions: Head CT 05/11/17 20:13 IMPRESSION: NORMAL BRAIN CT WITHOUT CONTRAST. EVIDENCE OF ACUTE STROKE: NO. Assessment & Plan - Time Time Spent with patient: 15-24 minutes Medications reviewed and adjusted accordingly: Yes Anticipated discharge: Home - Plan Summary Plan Summary: 1. Delirium tremens /alcohol withdrawal currently on tapering dosage of Ativan. Continue to taper. Today is Day 6 post his last drink 2. Alcoholic gastritis currently on PPI twice a day 3. Peptic ulcer disease- Continue PPI, Maalox 4. Depression currently off Haldol. He has been seen by psychiatry as well 5. COPD currently stable with no evidence of exacerbation 6. Alcohol abuse patient ihas been given information about community resources by discharge planners. 7. Tobacco abuse currently on nicotine patch 8. Transaminitis secondary to alcohol abuse. Follow labs 9. Hypokalemia resolved 10. Dehydration DC IV fluid 11. Home 1 to 2 days
[2017-05-16] MEDS ORDERED: LORAZEPAM 1 MG TABLET PO SCH (18:00)
[2017-05-16] MEDS: LORAZEPAM INJ 2 MG/1 ML VIAL IV PRN (21:08)
[2017-05-17] MEDS: ONDANSETRON HCL INJ/PF 4 MG/2 ML SDV IV PRN ×3 (03:04→13:02)
[2017-05-17] MEDS: LORAZEPAM 1 MG TABLET PO SCH ×5 (03:04→20:05)
[2017-05-17] MEDS: OXYCODONE-ACETAMINOPHEN 5-325 MG TABLET PO PRN ×4 (03:59→21:53)
[2017-05-17] MEDS: LORAZEPAM INJ 2 MG/1 ML VIAL IV PRN (04:00)
[2017-05-17] MEDS: HEPARIN SOD (PORCINE) 5,000 UNIT/ML 1 ML SYRINGE SUBCUT SCH ×2 (05:04→13:02)
[2017-05-17] MEDS: IPRATROPIUM/ALBUTEROL 0.5-2.5 MG/3 ML AMPUL NEB SCH (07:59)
[2017-05-17] MEDS: HALOPERIDOL 2 MG TABLET PO SCH ×2 (09:57→21:52)
[2017-05-17] MEDS: NICOTINE 21 MG/24 HR PATCH.TD24 TD SCH (09:57)
[2017-05-17] MEDS: DOCUSATE SODIUM 100 MG CAPSULE PO SCH ×2 (09:58→17:12)
[2017-05-17] MEDS: FOLIC ACID 1 MG TABLET PO SCH (11:50)
[2017-05-17] MEDS: MULTIVITAMIN TABLET PO SCH (11:50)
[2017-05-17] MEDS: THIAMINE HCL 100 MG TABLET PO SCH (11:50)
--- NOTE | 2017-05-17 17:35 | PDOC PROGRESS REPORT ---
Subjective Progress Note for:: 05/17/17 Subjective:: Pt states that he is having abd pain. Reason For Visit: ETOH WITHDRAWAL Physical Exam Vital Signs: Temp Pulse Resp BP Pulse Ox 98.4 F 65 18 139/70 H 98 05/17/17 15:37 05/17/17 15:37 05/17/17 15:37 05/17/17 15:37 05/17/17 15:37 Intake & Output 05/16/17 05/17/17 05/18/17 06:59 06:59 06:59 Intake Total 3163 1675 Output Total 150 1000 Balance 3013 675 Weight 77 kg 77 kg General appearance: PRESENT: no acute distress, well-developed, well-nourished Head exam: PRESENT: atraumatic, normocephalic Eye exam: PRESENT: conjunctiva pink, EOMI. ABSENT: scleral icterus Ear exam: PRESENT: normal external ear exam Mouth exam: PRESENT: moist, tongue midline Neck exam: ABSENT: carotid bruit, JVD, lymphadenopathy, thyromegaly Respiratory exam: PRESENT: clear to auscultation alexei. ABSENT: rales, rhonchi, wheezes Cardiovascular exam: PRESENT: RRR. ABSENT: diastolic murmur, rubs, systolic murmur Pulses: PRESENT: normal dorsalis pedis pul Vascular exam: PRESENT: normal capillary refill GI/Abdominal exam: PRESENT: normal bowel sounds, soft. ABSENT: distended, guarding, mass, organolmegaly, rebound, tenderness Rectal exam: PRESENT: deferred Extremities exam: PRESENT: full ROM. ABSENT: calf tenderness, clubbing, pedal edema Neurological exam: PRESENT: alert, awake, oriented to person, oriented to place , oriented to time, oriented to situation, CN II-XII grossly intact. ABSENT: motor sensory deficit Psychiatric exam: PRESENT: appropriate affect, normal mood. ABSENT: homicidal ideation, suicidal ideation Skin exam: PRESENT: dry, intact, warm. ABSENT: cyanosis, rash Results Laboratory Results: 05/16/17 06:16 05/16/17 06:16 Impressions: Head CT 05/11/17 20:13 IMPRESSION: NORMAL BRAIN CT WITHOUT CONTRAST. EVIDENCE OF ACUTE STROKE: NO. Assessment & Plan - Diagnosis (1) Alcohol withdrawal Qualifiers: Complication of substance-induced condition: with delirium Qualified Code(s ): F10.231 - Alcohol dependence with withdrawal delirium Is this a current diagnosis for this admission?: Yes Plan: We will continue current treatment plan. (2) Alcoholic gastritis Is this a current diagnosis for this admission?: Yes Plan: Patient on PPI twice daily (3) Dehydration Is this a current diagnosis for this admission?: Yes Plan: Resolved. (4) Depression, psychotic Is this a current diagnosis for this admission?: Yes Plan: Supportive care. (5) Hypokalemia Is this a current diagnosis for this admission?: Yes Plan: Resolved (6) Alcohol dependence Is this a current diagnosis for this admission?: Yes Plan: Continue multivitamin and supplements. (7) COPD (chronic obstructive pulmonary disease) Is this a current diagnosis for this admission?: Yes Plan: We will change to as needed breathing treatment (8) Duodenitis with bleeding Is this a current diagnosis for this admission?: Yes Plan: PPI (9) Hyponatremia Is this a current diagnosis for this admission?: Yes Plan: Resolved. (10) DVT prophylaxis Is this a current diagnosis for this admission?: Yes Plan: SCDs - Time Time Spent with patient: 15-24 minutes
[2017-05-17] MEDS ORDERED: IPRATROPIUM/ALBUTEROL 0.5-2.5 MG/3 ML AMPUL NEB PRN (17:37)
[2017-05-17] MEDS: PANTOPRAZOLE SODIUM 40 MG VIAL IV SCH (21:53)
[2017-05-18] MEDS: LORAZEPAM 1 MG TABLET PO SCH ×3 (01:38→07:45)
[2017-05-18] MEDS: OXYCODONE-ACETAMINOPHEN 5-325 MG TABLET PO PRN ×2 (04:06→09:59)
[2017-05-18 05:12] LABS: ABSOLUTE BASOPHILS # (AUTO) 0.1 10^3/uL (0.0-0.2); ABSOLUTE EOSINOPHILS # (AUTO) 0.2 10^3/uL (0.0-0.6); ABSOLUTE MONOCYTES (AUTO) 0.7 10^3/uL (0.1-1.4); ABSOLUTE NEUT (AUTO) 5.2 10^3/uL (1.7-8.2); BASOPHILS % (AUTO) 1.2 % (0-2); EOSINOPHILS % (AUTO) 2.3 % (0-6); HEMATOCRIT 42.2 % (37.9-51.0); HEMOGLOBIN 14.4 g/dL (13.5-17.0); LYMPHOCYTES % (AUTO) 24.5 % (13-45); MEAN CORPUSCULAR HEMOGLOBIN 32.9 pg (27.0-33.4); MEAN CORPUSCULAR VOLUME 97 fl (80-97); MONOCYTES % (AUTO) 8.3 % (3-13); PLATELET COUNT 294 10^3/uL (150-450); RED BLOOD COUNT 4.36 10^6/uL (4.35-5.55); RED CELL DISTRIBUTION WIDTH 13.7 % (11.5-14.0); SEGMENTED NEUTROPHILS % (AUTO) 63.7 % (42-78); TOTAL CELLS COUNTED % (AUTO) 100 %; WHITE BLOOD COUNT 8.2 10^3/uL (4.0-10.5)
[2017-05-18 05:31] LABS: ALANINE AMINOTRANSFERASE 150 U/L (21-72); ALBUMIN 4.1 g/dL (3.5-5.0); ALKALINE PHOSPHATASE 61 U/L (38-126); ANION GAP 10 (5-19); ASPARTATE AMINO TRANSFERASE 60 U/L (17-59); BILIRUBIN,DIRECT 0.2 mg/dL (0.0-0.4); BILIRUBIN,TOTAL 0.4 mg/dL (0.2-1.3); BLOOD UREA NITROGEN 16 mg/dL (7-20); CALCIUM 9.4 mg/dL (8.4-10.2); CARBON DIOXIDE 26 mmol/L (22-30); CHLORIDE 100 mmol/L (98-107); GLUCOSE 89 mg/dL (75-110); POTASSIUM 4.6 mmol/L (3.6-5.0); TOTAL PROTEIN 5.7 g/dL (6.3-8.2)
[2017-05-18 09:12] VITALS: BP 131/84
[2017-05-18] MEDS: HALOPERIDOL 2 MG TABLET PO SCH (09:59)
[2017-05-18] MEDS: PANTOPRAZOLE SODIUM 40 MG VIAL IV SCH (09:59)
[2017-05-18] MEDS: NICOTINE 21 MG/24 HR PATCH.TD24 TD SCH (09:59)
[2017-05-18] MEDS: DOCUSATE SODIUM 100 MG CAPSULE PO SCH (10:00)
--- NOTE | 2017-05-18 15:00 | PDOC DISCHARGE SUMMARY ---
General - Admit/Disc Date/PCP Admission Date/Primary Care Provider: 05/12/17 01:32 Discharge Date: 05/18/17 - Discharge Diagnosis (1) Alcohol withdrawal Is this a current diagnosis for this admission?: Yes Summary: Left AMA. (2) Alcoholic gastritis Is this a current diagnosis for this admission?: Yes Summary: Placed on PPI but left AMA (3) Dehydration Is this a current diagnosis for this admission?: Yes Summary: Left AMA (4) Depression, psychotic Is this a current diagnosis for this admission?: Yes Summary: Patient left AMA (5) Hypokalemia Is this a current diagnosis for this admission?: Yes Summary: Resolved. (6) Alcohol dependence Is this a current diagnosis for this admission?: Yes Summary: Encourage patient to stop drinking. Patient left AMA (7) COPD (chronic obstructive pulmonary disease) Is this a current diagnosis for this admission?: Yes Summary: Resolved (8) Duodenitis with bleeding Is this a current diagnosis for this admission?: Yes Summary: Patient was placed on PPI but left AGAINST MEDICAL ADVICE (9) Hyponatremia Is this a current diagnosis for this admission?: Yes Summary: Secondary to EtOH abuse - Additional Information Resuscitation Status: Full Code Home Medications: No Home Medications 05/12/17 History of Present Illness Patient complains of: Abdominal pain and alcohol withdrawal History of Present Illness: JOHN DIAMOND is a 56 year old male presented to hospital with complaint of alcohol withdrawal and abdominal pain. Patient had been admitted here prior and had underwent scope was demonstrated duodenal ulcer and gastritis. Patient at that time her left AGAINST MEDICAL ADVICE. Patient was admitted to the hospital where he is placed on Ativan for EtOH withdrawal. Hospital Course Hospital Course: Patient is a 56-year-old gentleman that was admitted to our facility for abdominal pain and alcohol withdrawal. Patient had been scoped the last visit and was found to have a nonbleeding duodenal ulcer and gastritis. Patient left AGAINST MEDICAL ADVICE. Patient was seen earlier this morning prior to leaving AMA Physical Exam Vital Signs: Temp Pulse Resp BP Pulse Ox 98.0 F 73 12 131/84 H 97 05/18/17 07:49 05/18/17 07:49 05/18/17 07:49 05/18/17 07:49 05/17/17 23:18 Intake & Output 05/17/17 05/18/17 05/19/17 06:59 06:59 06:59 Intake Total 9099 886 Output Total 1000 625 Balance 675 261 Weight 77 kg 87.6 kg General appearance: PRESENT: no acute distress, well-developed, well-nourished Head exam: PRESENT: atraumatic, normocephalic Eye exam: PRESENT: conjunctiva pink, EOMI. ABSENT: scleral icterus Ear exam: PRESENT: normal external ear exam Mouth exam: PRESENT: moist, tongue midline Neck exam: ABSENT: carotid bruit, JVD, lymphadenopathy, thyromegaly Respiratory exam: PRESENT: clear to auscultation alexei. ABSENT: rales, rhonchi, wheezes Cardiovascular exam: PRESENT: RRR. ABSENT: diastolic murmur, rubs, systolic murmur Pulses: PRESENT: normal dorsalis pedis pul Vascular exam: PRESENT: normal capillary refill GI/Abdominal exam: PRESENT: normal bowel sounds, soft. ABSENT: distended, guarding, mass, organolmegaly, rebound, tenderness Rectal exam: PRESENT: deferred Extremities exam: PRESENT: full ROM. ABSENT: calf tenderness, clubbing, pedal edema Neurological exam: PRESENT: alert, awake, oriented to person, oriented to place , oriented to time, oriented to situation, CN II-XII grossly intact. ABSENT: motor sensory deficit Psychiatric exam: PRESENT: appropriate affect, normal mood. ABSENT: homicidal ideation, suicidal ideation Skin exam: PRESENT: dry, intact, warm. ABSENT: cyanosis, rash Results Laboratory Results: 05/18/17 04:17 05/18/17 04:17 05/18/17 05/18/17 04:17 04:17 WBC 8.2 RBC 4.36 Hgb 14.4 Hct 42.2 MCV 97 MCH 32.9 MCHC 34.0 RDW 13.7 Plt Count 294 Seg Neutrophils % 63.7 Lymphocytes % 24.5 Monocytes % 8.3 Eosinophils % 2.3 Basophils % 1.2 Absolute Neutrophils 5.2 Absolute Lymphocytes 2.0 Absolute Monocytes 0.7 Absolute Eosinophils 0.2 Absolute Basophils 0.1 Sodium 136.0 L Potassium 4.6 Chloride 100 Carbon Dioxide 26 Anion Gap 10 BUN 16 Creatinine 0.81 Est GFR ( Amer) > 60 Est GFR (Non-Af Amer) > 60 Glucose 89 Calcium 9.4 Total Bilirubin 0.4 AST 60 H ALT 150 H Alkaline Phosphatase 61 Total Protein 5.7 L Albumin 4.1 Impressions: Head CT 05/11/17 20:13 IMPRESSION: NORMAL BRAIN CT WITHOUT CONTRAST. EVIDENCE OF ACUTE STROKE: NO. Qualifiers - * PATEINT BEING DISCHARGED WITH ANY OF THE FOLLOWING DIAGNOSIS?: No Plan Time Spent: Less than 30 Minutes
== END 2017-05-18 11:48 | disposition left against medical advice (07) | DRG 894 ==
LOC: ER 19:17 → OBSVTOIN 05-12 01:32 → EH 05-12 01:32 → 4W 05-12 12:03
PROVIDERS: ADMIT Internal Medicine; ATTEND Internal Medicine
PROC: 3E0F73Z Introduction of Anti-inflammatory into Respiratory Tract, Via Natural or Artificial Opening (ICD-10-PCS; principal; 2017-05-12)
DX: F10.231 Alcohol dependence with withdrawal delirium (principal); K29.81 Duodenitis with bleeding; K29.21 Alcoholic gastritis with bleeding; F32.3 Major depressive disorder, single episode, severe with psychotic features; E87.1 Hypo-osmolality and hyponatremia; E87.6 Hypokalemia; K29.20 Alcoholic gastritis without bleeding; E86.0 Dehydration; J44.9 Chronic obstructive pulmonary disease, unspecified; F32.9 Major depressive disorder, single episode, unspecified; F41.9 Anxiety disorder, unspecified; F10.229 Alcohol dependence with intoxication, unspecified; F41.1 Generalized anxiety disorder; W01.190A Fall on same level from slipping, tripping and stumbling with subsequent striking against furniture, initial encounter; Y92.9 Unspecified place or not applicable; M54.5 Low back pain; F17.210 Nicotine dependence, cigarettes, uncomplicated; Z87.11 Personal history of peptic ulcer disease; Z90.49 Acquired absence of other specified parts of digestive tract; Z60.2 Problems related to living alone; Z88.6 Allergy status to analgesic agent; Z88.8 Allergy status to other drugs, medicaments and biological substances; Z83.6 Family history of other diseases of the respiratory system; Z82.49 Family history of ischemic heart disease and other diseases of the circulatory system
CPT/HCPCS: 36415; 70450; 80048; 80053; 80076; 80307; 81001; 83690; 83735; 84443; 85025; 85027; 85610; 94640; 96361; 96365; 96367; 96372; 96375; 96376; 99285; G0378; J1630; J1644; J2060; J2405; J2765; J3411; J3480; J3490; J7030; J7620; S0164

== ENCOUNTER 2017-05-20 17:40 | Inpatient (IN) | payer MEDICARE ==
[2017-05-20] MEDS ORDERED: ONDANSETRON HCL INJ/PF 4 MG/2 ML SDV IV ONE ×2 (18:11→20:59)
[2017-05-20] MEDS ORDERED: NORMAL SALINE 1000 ML 1,000 ML IV ONE ×2 (18:11→23:58)
[2017-05-20] MEDS ORDERED: LORAZEPAM INJ 2 MG/1 ML VIAL IV ONE ×4 (18:11→23:58)
--- NOTE | 2017-05-20 18:14 | ER Document Report ---
ED Medical Screen (RME) - General Chief Complaint: Alcohol Withdrawl Stated Complaint: DETOX/ALCOHOL WITHDRAWALS Time Seen by Provider: 05/20/17 18:06 Notes: RME DISCLOSURE I have seen this patient as part of a Rapid Medical Evaluation and, if applicable, placed any initially appropriate orders. The patient will be seen and fully evaluated, including a full history and physical exam, by a provider ( in Main ED or Fast Track) when a room becomes available. 56-year-old male PMH EtOH abuse here with complaints of tremors, nausea vomiting , feeling jittery, hallucinating ants crawling on the floor, ongoing for the past 3 days. His last drink of bourbon (his usual drink) was 3 days ago. He did have one beer approximately 5 hours ago but states this is considered light drinking for him. He is here requesting detox and was here several weeks ago for the same thing but left AMA. EXAM Minimally tachycardic low 100s Peripheral tremors visualized TRAVEL OUTSIDE OF THE [place] IN LAST 30 DAYS: No - Related Data Allergies/Adverse Reactions: morphine Allergy (Verified 05/12/17 00:55) diphenhydramine Adverse Reaction (Verified 05/08/17 02:25) Past Medical History - Social History Chew tobacco use (# tins/day): No Frequency of alcohol use: Heavy Drug Abuse: None Pulmonary Medical History: Reports: Hx COPD Renal/ Medical History: Denies: Hx Peritoneal Dialysis Psychiatric Medical History: Reports: Hx Anxiety, Hx Bipolar Disorder, Hx Depression Past Surgical History: Reports: Hx Abdominal Surgery - hernia, Hx Cholecystectomy, Hx Orthopedic Surgery - L4-L5 laminectomy., Other - right inguinal hernia repair; left ulnar nerve replacement. - Immunizations History of Influenza Vaccine for 12/2016 - 05/2017 Season: No Physical Exam - Vital signs Vitals: Temp Pulse Resp BP Pulse Ox 98.3 F 99 20 172/99 H 97 05/20/17 17:57 05/20/17 17:57 05/20/17 17:57 05/20/17 17:57 05/20/17 17:57 Course - Vital Signs Vital signs: Temp Pulse Resp BP Pulse Ox 98.3 F 99 20 172/99 H 97 05/20/17 17:57 05/20/17 17:57 05/20/17 17:57 05/20/17 17:57 05/20/17 17:57
[2017-05-20] MEDS ORDERED: FOLIC ACID 1 MG TABLET PO ONE (19:03)
[2017-05-20] MEDS ORDERED: THIAMINE HCL 100 MG TABLET PO ONE (19:03)
[2017-05-20 22:18] LABS: ABSOLUTE LYMPHOCYTES (AUTO) 2.1 10^3/uL (0.5-4.7); ABSOLUTE MONOCYTES (AUTO) 0.7 10^3/uL (0.1-1.4); ABSOLUTE NEUT (AUTO) 8.2 10^3/uL (1.7-8.2); BASOPHILS % (AUTO) 0.4 % (0-2); EOSINOPHILS % (AUTO) 0.4 % (0-6); LYMPHOCYTES % (AUTO) 18.9 % (13-45); MEAN CORPUSCULAR HEMOGLOBIN 32.9 pg (27.0-33.4); MEAN CORPUSCULAR HGB CONC 34.2 g/dL (32.0-36.0); MEAN CORPUSCULAR VOLUME 96 fl (80-97); PLATELET COUNT 432 10^3/uL (150-450); RED BLOOD COUNT 4.27 10^6/uL (4.35-5.55); RED CELL DISTRIBUTION WIDTH 14.1 % (11.5-14.0); SEGMENTED NEUTROPHILS % (AUTO) 74.3 % (42-78); TOTAL CELLS COUNTED % (AUTO) 100 %
[2017-05-20 22:31] LABS: ALCOHOL 67 mg/dL (NONE DETECTED)
[2017-05-20 22:46] LABS: ALANINE AMINOTRANSFERASE 103 U/L (21-72); ALBUMIN 4.2 g/dL (3.5-5.0); ALKALINE PHOSPHATASE 61 U/L (38-126); ANION GAP 13 (5-19); ASPARTATE AMINO TRANSFERASE 35 U/L (17-59); BILIRUBIN,DIRECT 0.2 mg/dL (0.0-0.4); BILIRUBIN,TOTAL 0.3 mg/dL (0.2-1.3); BLOOD UREA NITROGEN 10 mg/dL (7-20); CALCIUM 9.2 mg/dL (8.4-10.2); CARBON DIOXIDE 24 mmol/L (22-30); CHLORIDE 99 mmol/L (98-107); GLUCOSE 95 mg/dL (75-110); LIPASE 52.8 U/L (23-300); POTASSIUM 4.6 mmol/L (3.6-5.0); TOTAL PROTEIN 6.1 g/dL (6.3-8.2)
--- NOTE | 2017-05-20 23:52 | ER Document Report ---
ED General - General Chief Complaint: Alcohol Withdrawl Stated Complaint: DETOX/ALCOHOL WITHDRAWALS Time Seen by Provider: 05/20/17 18:06 Mode of Arrival: Ambulatory Information source: Patient TRAVEL OUTSIDE OF THE [place] IN LAST 30 DAYS: No - HPI Patient complains to provider of: tremors/n/v/"seeing ants on floor" Onset: This morning Onset/Duration: Gradual Quality of pain: No pain Associated symptoms: Nausea, Vomiting Exacerbated by: Denies Relieved by: Denies Similar symptoms previously: Yes Recently seen / treated by doctor: Yes - left here AMA Notes: Patient states he normally drinks half gallon of whiskey daily. He states today he did not drink at all except for 1 beer prior to arrival. He states he is having tremors, nausea vomiting, seeing ants crawling on floors and generally not feeling well. - Related Data Allergies/Adverse Reactions: morphine Allergy (Verified 05/12/17 00:55) diphenhydramine Adverse Reaction (Verified 05/08/17 02:25) Past Medical History - General Information source: Patient - Social History Smoking Status: Current Every Day Smoker Chew tobacco use (# tins/day): No Frequency of alcohol use: Heavy Drug Abuse: None Lives with: Alone Family History: Reviewed & Not Pertinent Patient has suicidal ideation: No Patient has homicidal ideation: No - Past Medical History Cardiac Medical History: Reports: None Pulmonary Medical History: Reports: Hx COPD Neurological Medical History: Reports: None Endocrine Medical History: Reports: None Renal/ Medical History: Reports: None. Denies: Hx Peritoneal Dialysis Malignancy Medical History: Reports None GI Medical History: Reports: None Musculoskeltal Medical History: Reports None Psychiatric Medical History: Reports: Hx Anxiety, Hx Bipolar Disorder, Hx Depression Past Surgical History: Reports: Hx Abdominal Surgery - hernia, Hx Cholecystectomy, Hx Orthopedic Surgery - L4-L5 laminectomy., Other - right inguinal hernia repair; left ulnar nerve replacement. Review of Systems - Review of Systems Constitutional: No symptoms reported EENT: No symptoms reported Cardiovascular: No symptoms reported Respiratory: No symptoms reported Gastrointestinal: See HPI Genitourinary: No symptoms reported Male Genitourinary: No symptoms reported Musculoskeletal: No symptoms reported Skin: No symptoms reported Hematologic/Lymphatic: No symptoms reported Neurological/Psychological: Hallucinations Physical Exam - Vital signs Vitals: Temp Pulse Resp BP Pulse Ox 98.3 F 99 20 172/99 H 97 05/20/17 17:57 05/20/17 17:57 05/20/17 17:57 05/20/17 17:57 05/20/17 17:57 - Notes Notes: PHYSICAL EXAMINATION: GENERAL: Disheveled, tremulous male lying in bed. HEAD: Atraumatic, normocephalic. EYES: Pupils equal round and reactive to light, extraocular movements intact, sclera anicteric, conjunctiva are normal. ENT: Nares patent, oropharynx clear without exudates. Moist mucous membranes. NECK: Normal range of motion, supple without lymphadenopathy LUNGS: Breath sounds clear to auscultation bilaterally and equal. No wheezes rales or rhonchi. HEART:tachy rate and rhythm without murmurs ABDOMEN: Soft, nontender, nondistended abdomen. No guarding, no rebound. No masses appreciated. Musculoskeletal: Normal range of motion, no pitting or edema. No cyanosis. NEUROLOGICAL: Cranial nerves grossly intact. Normal speech. Normal sensory, motor exams PSYCH: Normal mood, normal affect. SKIN: Warm, Dry, normal turgor, no rashes or lesions noted. Course - Vital Signs Vital signs: Temp Pulse Resp BP Pulse Ox 98.3 F 63 25 H 140/64 H 97 05/22/17 00:00 05/21/17 19:39 05/21/17 23:00 05/21/17 21:25 05/21/17 16:38 - Laboratory Result Diagrams: 05/20/17 21:50 05/20/17 21:50 Laboratory results interpreted by me: 05/20/17 05/20/17 21:50 21:50 WBC 11.0 H RBC 4.27 L RDW 14.1 H Sodium 136.0 L ALT 103 H Total Protein 6.1 L Discharge - Discharge Clinical Impression: Alcohol withdrawal, Alcohol withdrawal hallucinosis Condition: Serious Disposition: ADMITTED INPATIENT Admitting Provider: Hospitalist - Dr. Ortega Unit Admitted: [facility]
[2017-05-21] MEDS ORDERED: ALBUTEROL SULFATE 0.083% NEB 2.5 MG/3 ML AMPUL NEB PRN (00:35)
[2017-05-21] MEDS ORDERED: DIAZEPAM INJ 10 MG/2 ML DISP.SYRIN IV PRN (00:42)
[2017-05-21] MEDS: PROMETHAZINE HCL INJ 25 MG/1 ML VIAL IV PRN ×4 (01:28→22:07)
[2017-05-21] MEDS: ONDANSETRON HCL INJ/PF 4 MG/2 ML SDV IV PRN ×3 (03:41→14:45)
--- NOTE | 2017-05-21 04:08 | PDOC H&P ---
History of Present Illness Admission Date/PCP: 05/20/17 23:55 Patient complains of: Increased tremors and visual hallucinations for the last 3 days after he stopped drinking. History of Present Illness: JOHN DIAMOND is a 56 year old alcoholic male smoker with history of COPD (not on home oxygen) was admitted with above-mentioned complaints. This is his third admission to this hospital since 05/08/2017. According to the patient, he used to drink 1 gallon of [employer] bourbon daily for the last 5 years. He stopped drinking 3 days ago and started feeling more tremulous. He was having epigastric abdominal pain radiating up his chest, nausea and vomiting with bilious vomitus. He also had diarrhea 2 hours prior to admission but no hematochezia or melena. He had chest pain with deep breathing and chills but no fever or shortness of breath. He has been having visual hallucinations. He said that he has been seeing hair and ants crawling. He had DTs before but he denied any alcohol induced seizures in the past. 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 In the ED, his temperature was 98.3, heart rate 99, respiratory rate 20, blood pressure 172/99 with oxygen saturation of 97% on room air. His WBC was 11.0 and his hemoglobin was 14.0. His ALT was 103 and his AST was 35 with lipase of 52.8. Alcohol level is 67. He received a total of 7 mg IV Ativan with minimal relief in his symptoms. Past Medical History Medical History: Other - According to the patient and based on previous records. Cardiac Medical History: Reports: None Pulmonary Medical History: Reports: Chronic Obstructive Pulmonary Disease (COPD) Neurological Medical History: Reports: None Endocrine Medical History: Reports: None Renal/ Medical History: Reports: None Malignancy Medical History: Reports: None GI Medical History: Reports: None Musculoskeltal Medical History: Reports: None Psychiatric Medical History: Reports: Bipolar Disorder, Depression Past Surgical History Past Surgical History: Reports: Cholecystectomy, Orthopedic Surgery - L4-L5 laminectomy x2., Other - Rt inguinal hernia repair; Lt ulnar nerve replaced: lymph node resected Social History Lives with: Alone Smoking Status: Current Every Day Smoker Cigarettes Packs Per Day: 2 - 2 packs a day for 40 years. Frequency of Alcohol Use: Heavy - [place] bourbon. Hx Recreational Drug Use: No Drugs: None Hx Prescription Drug Abuse: No Family History Parental Family History Reviewed: Yes - Mother: DM2. Children Family History Reviewed: No Sibling(s) Family History Reviewed.: Yes Medication/Allergy Home Medications: No Home Medications 05/12/17 Allergies/Adverse Reactions: morphine Allergy (Verified 05/12/17 00:55) diphenhydramine Adverse Reaction (Verified 05/08/17 02:25) Review of Systems ROS unobtainable: Other - Pertinent positives and negatives as detailed in the HPI. Physical Exam Vital Signs: Temp Pulse Resp BP Pulse Ox 98.3 F 80 19 126/62 H 95 05/20/17 17:57 05/20/17 19:37 05/20/17 23:03 05/20/17 23:03 05/20/17 23:03 General appearance: PRESENT: no acute distress, well-developed, well-nourished, other - tremulous. Head exam: PRESENT: atraumatic, normocephalic Eye exam: PRESENT: conjunctiva pink. ABSENT: scleral icterus Neck exam: PRESENT: full ROM. ABSENT: JVD Respiratory exam: PRESENT: clear to auscultation alexei. ABSENT: rales, rhonchi, wheezes Cardiovascular exam: PRESENT: RRR, +S1, +S2 Pulses: PRESENT: normal dorsalis pedis pul GI/Abdominal exam: PRESENT: normal bowel sounds, soft. ABSENT: distended, rebound, tenderness Rectal exam: PRESENT: deferred Extremities exam: ABSENT: pedal edema Neurological exam: PRESENT: alert, altered, awake, other - tremors. Skin exam: PRESENT: dry, warm. ABSENT: erythema, rash Results Laboratory Results: CBC: WBC 11.0, hemoglobin 14.0, hematocrit 41.0, MCV 96, RDW 14.1, platelets 432. CMP: Sodium 136, potassium 4.6, chloride 99, bicarb 24, anion gap 13, BUN 10, creatinine 0.67, glucose 95, calcium 9.2, magnesium 1.9, ALT 103, AST 35, lipase 52.8. Serum alcohol level was 67. Assessment & Plan - Diagnosis (1) Delirium tremens Is this a current diagnosis for this admission?: Yes Plan: The patient received a total of 7 mg of IV Ativan in the ED with minimal resolution in his symptoms. Will start IV Valium and monitor. We will also start normal saline, thiamine, folate and multivitamins. (2) Smoker Is this a current diagnosis for this admission?: Yes Plan: 2 packs a day for the last 40 years. He is motivated to quit. Nicotine patch. (3) COPD (chronic obstructive pulmonary disease) Is this a current diagnosis for this admission?: No Plan: stable. (4) Alcohol dependence Qualifiers: Substance use status: unspecified alcohol-induced disorder Qualified Code(s ): F10.29 - Alcohol dependence with unspecified alcohol-induced disorder Is this a current diagnosis for this admission?: No Plan: He may need to be referred to detox program as outpatient if patient agreeable. - Time Time Spent: 50 to 70 Minutes Anticipated discharge: Home - Inpatient Certification Based on my medical assessment, after consideration of the patient's comorbidities, presenting symptoms, or acuity I expect that the services needed warrant INPATIENT care.: Yes I certify that my determination is in accordance with my understanding of Medicare's requirements for reasonable and necessary INPATIENT services [42 CFR 412.3e].: Yes
[2017-05-21] MEDS: LORAZEPAM INJ 2 MG/1 ML VIAL IV PRN ×5 (06:53→22:06)
[2017-05-21] MEDS: LANSOPRAZOLE 30 MG TAB.RAP.DR PO SCH (06:54)
[2017-05-21] MEDS: NORMAL SALINE 1000 ML 1,000 ML IV PRN (08:13)
[2017-05-21] MEDS: HEPARIN SOD (PORCINE) 5,000 UNIT/ML 1 ML SYRINGE SUBCUT SCH ×3 (08:17→22:07)
[2017-05-21] MEDS ORDERED: LORAZEPAM INJ 2 MG/1 ML VIAL IV PRN (08:42)
[2017-05-21 09:01] LABS: URINE AMPHETAMINES SCREEN NEGATIVE; URINE BARBITURATES SCREEN NEGATIVE; URINE COCAINE SCREEN NEGATIVE; URINE MARIJUANA (THC) SCREEN NEGATIVE; URINE METHADONE SCREEN NEGATIVE; URINE PHENCYCLIDINE SCREEN NEGATIVE
[2017-05-21 09:13] LABS: URINE BENZODIAZEPINES SCREEN UNCONFIRMED POSITIVE
[2017-05-21] MEDS: THIAMINE HCL 100 MG TABLET PO SCH (09:38)
[2017-05-21] MEDS: NICOTINE 21 MG/24 HR PATCH.TD24 TD SCH (09:38)
[2017-05-21] MEDS: FOLIC ACID 1 MG TABLET PO SCH (09:38)
[2017-05-21] MEDS: MULTIVITAMIN TABLET PO SCH (09:38)
--- NOTE | 2017-05-21 15:56 | Progress Note ---
Provider Note Provider Note: Patient seen, chart reviewed, and patient examined. Patient was recently here in the hospital and signed out AMA May 18. Spoke to patient about his expectations of being admitted to the hospital. Patient states that this time he is really serious about stop using alcohol products. Patient states that this time he will not sign himself out AMA because he wants us to help him find outpatient help.
[2017-05-22] MEDS: ONDANSETRON HCL INJ/PF 4 MG/2 ML SDV IV PRN ×3 (03:06→17:35)
[2017-05-22] MEDS: LORAZEPAM INJ 2 MG/1 ML VIAL IV PRN ×6 (03:06→21:34)
[2017-05-22 04:01] LABS: HEMATOCRIT 42.3 % (37.9-51.0); HEMOGLOBIN 14.3 g/dL (13.5-17.0); MEAN CORPUSCULAR HEMOGLOBIN 32.7 pg (27.0-33.4); MEAN CORPUSCULAR HGB CONC 33.9 g/dL (32.0-36.0); MEAN CORPUSCULAR VOLUME 96 fl (80-97); PLATELET COUNT 369 10^3/uL (150-450); RED BLOOD COUNT 4.39 10^6/uL (4.35-5.55); RED CELL DISTRIBUTION WIDTH 13.8 % (11.5-14.0); WHITE BLOOD COUNT 8.9 10^3/uL (4.0-10.5)
[2017-05-22 04:31] LABS: ALANINE AMINOTRANSFERASE 83 U/L (21-72); ALBUMIN 3.7 g/dL (3.5-5.0); ALKALINE PHOSPHATASE 60 U/L (38-126); ANION GAP 9 (5-19); ASPARTATE AMINO TRANSFERASE 28 U/L (17-59); BILIRUBIN,DIRECT 0.4 mg/dL (0.0-0.4); BILIRUBIN,TOTAL 0.8 mg/dL (0.2-1.3); BLOOD UREA NITROGEN 14 mg/dL (7-20); CALCIUM 9.2 mg/dL (8.4-10.2); CARBON DIOXIDE 26 mmol/L (22-30); CHLORIDE 104 mmol/L (98-107); GLUCOSE 87 mg/dL (75-110); LIPASE 61.1 U/L (23-300); POTASSIUM 4.3 mmol/L (3.6-5.0); TOTAL PROTEIN 5.9 g/dL (6.3-8.2)
[2017-05-22] MEDS: LANSOPRAZOLE 30 MG TAB.RAP.DR PO SCH ×2 (06:55→17:34)
[2017-05-22] MEDS: HEPARIN SOD (PORCINE) 5,000 UNIT/ML 1 ML SYRINGE SUBCUT SCH ×3 (06:56→22:41)
[2017-05-22] MEDS: PROMETHAZINE HCL INJ 25 MG/1 ML VIAL IV PRN ×3 (06:56→21:34)
[2017-05-22] MEDS: ACETAMINOPHEN 325 MG TABLET PO PRN ×2 (10:08→16:51)
[2017-05-22] MEDS: FOLIC ACID 1 MG TABLET PO SCH (10:08)
[2017-05-22] MEDS: MULTIVITAMIN TABLET PO SCH (10:09)
[2017-05-22] MEDS: NICOTINE 21 MG/24 HR PATCH.TD24 TD SCH (10:09)
[2017-05-22] MEDS: THIAMINE HCL 100 MG TABLET PO SCH (10:09)
--- NOTE | 2017-05-22 16:40 | PDOC PROGRESS REPORT ---
Subjective Progress Note for:: 05/22/17 Subjective:: Pt states that he really wants to stop drinking. Nursing states that pt has been requesting for ativan. Reason For Visit: DELIRIUM TREMENS Physical Exam Vital Signs: Temp Pulse Resp BP Pulse Ox 97.9 F 70 18 157/86 H 97 05/22/17 12:00 05/22/17 12:00 05/22/17 12:00 05/22/17 12:32 05/22/17 12:00 Intake & Output 05/21/17 05/22/17 05/23/17 05:59 06:59 06:59 Intake Total 50 Output Total 150 Balance -100 Weight General appearance: PRESENT: cooperative, disheveled, well-developed, well- nourished Head exam: PRESENT: atraumatic, normocephalic Eye exam: PRESENT: conjunctiva pink, EOMI. ABSENT: scleral icterus Ear exam: PRESENT: normal external ear exam Mouth exam: PRESENT: moist, tongue midline Neck exam: ABSENT: carotid bruit, JVD, lymphadenopathy, thyromegaly Respiratory exam: PRESENT: clear to auscultation alexei. ABSENT: rales, rhonchi, wheezes Cardiovascular exam: PRESENT: RRR. ABSENT: diastolic murmur, rubs, systolic murmur Pulses: PRESENT: normal dorsalis pedis pul Vascular exam: PRESENT: normal capillary refill GI/Abdominal exam: PRESENT: normal bowel sounds, soft. ABSENT: distended, guarding, mass, organolmegaly, rebound, tenderness Rectal exam: PRESENT: deferred Extremities exam: PRESENT: full ROM. ABSENT: calf tenderness, clubbing, pedal edema Musculoskeletal exam: PRESENT: full ROM Neurological exam: PRESENT: alert, awake, oriented to person, oriented to place , oriented to time, oriented to situation, CN II-XII grossly intact. ABSENT: motor sensory deficit Psychiatric exam: PRESENT: agitated Skin exam: PRESENT: dry, intact, warm. ABSENT: cyanosis, rash Results Laboratory Results: 05/22/17 03:53 05/22/17 03:53 05/22/17 05/22/17 05/22/17 03:53 03:53 03:53 WBC 8.9 RBC 4.39 Hgb 14.3 Hct 42.3 MCV 96 MCH 32.7 MCHC 33.9 RDW 13.8 Plt Count 369 Sodium 139.0 Potassium 4.3 Chloride 104 Carbon Dioxide 26 Anion Gap 9 BUN 14 Creatinine 0.74 Est GFR ( Amer) > 60 Est GFR (Non-Af Amer) > 60 Glucose 87 Calcium 9.2 Magnesium 2.0 Total Bilirubin 0.8 AST 28 ALT 83 H Alkaline Phosphatase 60 Total Protein 5.9 L Albumin 3.7 Lipase 61.1 Assessment & Plan - Diagnosis (1) Alcohol withdrawal Qualifiers: Is this a current diagnosis for this admission?: Yes Plan: Will write for scheduled Klonopin with parameters. Will also continue PRN Ativan. (2) Alcohol withdrawal hallucinosis Is this a current diagnosis for this admission?: Yes Plan: Will write for Klonopin and write for PRN Ativan. (3) Alcohol dependence Qualifiers: Substance use status: unspecified alcohol-induced disorder Qualified Code(s ): F10.29 - Alcohol dependence with unspecified alcohol-induced disorder Is this a current diagnosis for this admission?: Yes Plan: Will continue Klonopin and ativan PRN (4) Duodenitis with bleeding Is this a current diagnosis for this admission?: Yes Plan: Will continue PPI BID. - Time Time Spent with patient: 15-24 minutes
[2017-05-22] MEDS: NORMAL SALINE 1000 ML 1,000 ML IV PRN (21:35)
[2017-05-22] MEDS: CLONAZEPAM 1 MG TABLET PO SCH (22:41)
[2017-05-23] MEDS: ONDANSETRON HCL INJ/PF 4 MG/2 ML SDV IV PRN ×2 (01:47→14:36)
[2017-05-23] MEDS: LORAZEPAM INJ 2 MG/1 ML VIAL IV PRN ×5 (01:47→18:34)
[2017-05-23] MEDS ORDERED: MAG HYDROX/AL HYDROX/SIMETH SUSP 30 ML UDCUP PO PRN (04:00)
[2017-05-23 05:48] LABS: ABSOLUTE EOSINOPHILS # (AUTO) 0.2 10^3/uL (0.0-0.6); ABSOLUTE LYMPHOCYTES (AUTO) 2.1 10^3/uL (0.5-4.7); ABSOLUTE MONOCYTES (AUTO) 0.4 10^3/uL (0.1-1.4); ABSOLUTE NEUT (AUTO) 5.2 10^3/uL (1.7-8.2); BASOPHILS % (AUTO) 0.3 % (0-2); EOSINOPHILS % (AUTO) 2.6 % (0-6); HEMATOCRIT 44.2 % (37.9-51.0); LYMPHOCYTES % (AUTO) 26.1 % (13-45); MEAN CORPUSCULAR HEMOGLOBIN 32.9 pg (27.0-33.4); MEAN CORPUSCULAR HGB CONC 34.1 g/dL (32.0-36.0); MEAN CORPUSCULAR VOLUME 97 fl (80-97); MONOCYTES % (AUTO) 5.2 % (3-13); PLATELET COUNT 351 10^3/uL (150-450); RED BLOOD COUNT 4.57 10^6/uL (4.35-5.55); RED CELL DISTRIBUTION WIDTH 13.9 % (11.5-14.0); SEGMENTED NEUTROPHILS % (AUTO) 65.8 % (42-78); TOTAL CELLS COUNTED % (AUTO) 100 %
[2017-05-23 06:01] LABS: ALANINE AMINOTRANSFERASE 70 U/L (21-72); ALBUMIN 3.8 g/dL (3.5-5.0); ALKALINE PHOSPHATASE 55 U/L (38-126); ANION GAP 10 (5-19); ASPARTATE AMINO TRANSFERASE 23 U/L (17-59); BILIRUBIN,DIRECT 0.4 mg/dL (0.0-0.4); BILIRUBIN,TOTAL 0.5 mg/dL (0.2-1.3); BLOOD UREA NITROGEN 16 mg/dL (7-20); CALCIUM 9.3 mg/dL (8.4-10.2); CARBON DIOXIDE 25 mmol/L (22-30); CHLORIDE 105 mmol/L (98-107); GLUCOSE 107 mg/dL (75-110); POTASSIUM 4.4 mmol/L (3.6-5.0); SODIUM 140.2 mmol/L (137-145); TOTAL PROTEIN 5.7 g/dL (6.3-8.2)
[2017-05-23] MEDS: LANSOPRAZOLE 30 MG TAB.RAP.DR PO SCH ×2 (06:12→17:25)
[2017-05-23] MEDS: HEPARIN SOD (PORCINE) 5,000 UNIT/ML 1 ML SYRINGE SUBCUT SCH ×3 (06:12→21:02)
[2017-05-23] MEDS: PROMETHAZINE HCL INJ 25 MG/1 ML VIAL IV PRN ×2 (06:13→18:33)
[2017-05-23] MEDS: NORMAL SALINE 1000 ML 1,000 ML IV PRN ×2 (07:25→17:28)
[2017-05-23] MEDS: CLONAZEPAM 1 MG TABLET PO SCH ×3 (09:02→21:03)
[2017-05-23] MEDS: HYDROCODONE/ACETAMINOPHEN 10-325 MG TABLET PO PRN ×3 (09:05→21:03)
[2017-05-23] MEDS: MULTIVITAMIN TABLET PO SCH (10:30)
[2017-05-23] MEDS: NICOTINE 21 MG/24 HR PATCH.TD24 TD SCH (10:30)
[2017-05-23] MEDS: THIAMINE HCL 100 MG TABLET PO SCH (10:30)
[2017-05-23] MEDS: FOLIC ACID 1 MG TABLET PO SCH (10:30)
[2017-05-23] MEDS: LIDOCAINE 5% (700 MG) TRANSDERMAL ADH..PATCH TP SCH (10:31)
--- NOTE | 2017-05-23 11:08 | PDOC PROGRESS REPORT ---
Subjective Progress Note for:: 05/23/17 Subjective:: Pt states that he is having a lot of back pain. Pt states that he has history of back pain. Reason For Visit: DELIRIUM TREMENS Physical Exam Vital Signs: Temp Pulse Resp BP Pulse Ox 98.6 F 63 20 173/74 H 95 05/23/17 07:44 05/23/17 07:44 05/23/17 07:44 05/23/17 07:44 05/23/17 07:44 Intake & Output 05/22/17 05/23/17 05/24/17 06:59 06:59 06:59 Intake Total 3357 Output Total 1225 Balance 2132 Weight 84.4 kg General appearance: PRESENT: cooperative, disheveled, well-developed, well- nourished Head exam: PRESENT: atraumatic, normocephalic Eye exam: PRESENT: conjunctiva pink, EOMI. ABSENT: scleral icterus Ear exam: PRESENT: normal external ear exam Mouth exam: PRESENT: moist, tongue midline Neck exam: ABSENT: carotid bruit, JVD, lymphadenopathy, thyromegaly Respiratory exam: PRESENT: clear to auscultation alexei. ABSENT: rales, rhonchi, wheezes Cardiovascular exam: PRESENT: RRR. ABSENT: diastolic murmur, rubs, systolic murmur Pulses: PRESENT: normal dorsalis pedis pul Vascular exam: PRESENT: normal capillary refill GI/Abdominal exam: PRESENT: normal bowel sounds, soft. ABSENT: distended, guarding, mass, organolmegaly, rebound, tenderness Rectal exam: PRESENT: deferred Extremities exam: PRESENT: full ROM. ABSENT: calf tenderness, clubbing, pedal edema Neurological exam: PRESENT: alert, awake, oriented to person, oriented to place , oriented to time, oriented to situation, CN II-XII grossly intact. ABSENT: motor sensory deficit Psychiatric exam: PRESENT: agitated Skin exam: PRESENT: dry, intact, warm. ABSENT: cyanosis, rash Results Laboratory Results: 05/23/17 05:15 05/23/17 05:15 05/23/17 05/23/17 05:15 05:15 WBC 8.0 RBC 4.57 Hgb 15.0 Hct 44.2 MCV 97 MCH 32.9 MCHC 34.1 RDW 13.9 Plt Count 351 Seg Neutrophils % 65.8 Lymphocytes % 26.1 Monocytes % 5.2 Eosinophils % 2.6 Basophils % 0.3 Absolute Neutrophils 5.2 Absolute Lymphocytes 2.1 Absolute Monocytes 0.4 Absolute Eosinophils 0.2 Absolute Basophils 0.0 Sodium 140.2 Potassium 4.4 Chloride 105 Carbon Dioxide 25 Anion Gap 10 BUN 16 Creatinine 0.81 Est GFR ( Amer) > 60 Est GFR (Non-Af Amer) > 60 Glucose 107 Calcium 9.3 Magnesium 2.1 Total Bilirubin 0.5 AST 23 ALT 70 Alkaline Phosphatase 55 Total Protein 5.7 L Albumin 3.8 Assessment & Plan - Diagnosis (1) Alcohol withdrawal Qualifiers: Is this a current diagnosis for this admission?: Yes Plan: Will continue Klonopin with parameters. Will also continue PRN Ativan. (2) Alcohol withdrawal hallucinosis Is this a current diagnosis for this admission?: Yes Plan: Will continue Klonopin and for PRN Ativan. (3) Duodenitis with bleeding Is this a current diagnosis for this admission?: Yes Plan: Will continue PPI BID. (4) Alcohol dependence Qualifiers: Substance use status: unspecified alcohol-induced disorder Qualified Code(s ): F10.29 - Alcohol dependence with unspecified alcohol-induced disorder Is this a current diagnosis for this admission?: Yes Plan: Will continue Klonopin and ativan PRN (5) Chronic back pain Is this a current diagnosis for this admission?: Yes Plan: Pt written for Hydrocodone PRN. (6) DVT prophylaxis Is this a current diagnosis for this admission?: Yes Plan: SCDs - Time Time Spent with patient: 15-24 minutes
[2017-05-24] MEDS: PROMETHAZINE HCL INJ 25 MG/1 ML VIAL IV PRN ×2 (00:10→04:48)
[2017-05-24] MEDS: LORAZEPAM INJ 2 MG/1 ML VIAL IV PRN ×6 (00:10→23:53)
[2017-05-24] MEDS: HEPARIN SOD (PORCINE) 5,000 UNIT/ML 1 ML SYRINGE SUBCUT SCH ×3 (05:39→21:14)
[2017-05-24] MEDS: LANSOPRAZOLE 30 MG TAB.RAP.DR PO SCH ×2 (05:39→17:33)
[2017-05-24] MEDS: CLONAZEPAM 1 MG TABLET PO SCH ×3 (05:39→21:13)
[2017-05-24] MEDS: HYDROCODONE/ACETAMINOPHEN 10-325 MG TABLET PO PRN ×3 (06:11→18:32)
[2017-05-24] MEDS ORDERED: PROMETHAZINE HCL 25 MG TABLET PO PRN (09:56)
--- NOTE | 2017-05-24 09:56 | PDOC PROGRESS REPORT ---
Subjective Progress Note for:: 05/24/17 Subjective:: Pt states that he is having back pain. Pt states that he is wanting to stop drinking but having difficulty stopping. Pt states that he is ready for help. Nursing states that pt is requesting for Ativan and pain medication Reason For Visit: DELIRIUM TREMENS Physical Exam Vital Signs: Temp Pulse Resp BP Pulse Ox 98.0 F 62 20 146/68 H 96 05/24/17 07:31 05/24/17 07:31 05/24/17 07:31 05/24/17 07:31 05/24/17 07:31 Intake & Output 05/23/17 05/24/17 05/25/17 06:59 06:59 06:59 Intake Total 3357 4560 Output Total 1225 1800 Balance 2132 2760 Weight 84.4 kg 86.4 kg General appearance: PRESENT: no acute distress, disheveled, well-developed, well -nourished Head exam: PRESENT: atraumatic, normocephalic Eye exam: PRESENT: conjunctiva pink, EOMI. ABSENT: scleral icterus Ear exam: PRESENT: normal external ear exam Mouth exam: PRESENT: moist, tongue midline Neck exam: ABSENT: carotid bruit, JVD, lymphadenopathy, thyromegaly Respiratory exam: PRESENT: clear to auscultation alexei. ABSENT: rales, rhonchi, wheezes Cardiovascular exam: PRESENT: RRR. ABSENT: diastolic murmur, rubs, systolic murmur Pulses: PRESENT: normal dorsalis pedis pul Vascular exam: PRESENT: normal capillary refill GI/Abdominal exam: PRESENT: normal bowel sounds, soft. ABSENT: distended, guarding, mass, organolmegaly, rebound, tenderness Rectal exam: PRESENT: deferred Extremities exam: PRESENT: full ROM. ABSENT: calf tenderness, clubbing, pedal edema Musculoskeletal exam: PRESENT: full ROM Neurological exam: PRESENT: alert, awake, oriented to person, oriented to place , oriented to time, oriented to situation, CN II-XII grossly intact. ABSENT: motor sensory deficit Psychiatric exam: PRESENT: agitated, appropriate affect, flat affect. ABSENT: homicidal ideation, suicidal ideation Skin exam: PRESENT: dry, intact, warm. ABSENT: cyanosis, rash Results Laboratory Results: 05/23/17 05:15 05/23/17 05:15 Assessment & Plan - Diagnosis (1) Alcohol withdrawal Qualifiers: Is this a current diagnosis for this admission?: Yes Plan: Will continue Klonopin with parameters. Will also continue PRN Ativan. (2) Alcohol withdrawal hallucinosis Is this a current diagnosis for this admission?: Yes Plan: Will continue Klonopin and for PRN Ativan. (3) Duodenitis with bleeding Is this a current diagnosis for this admission?: Yes Plan: Will continue PPI BID. (4) Alcohol dependence Qualifiers: Substance use status: unspecified alcohol-induced disorder Qualified Code(s ): F10.29 - Alcohol dependence with unspecified alcohol-induced disorder Is this a current diagnosis for this admission?: Yes Plan: Will continue Klonopin and ativan PRN (5) Chronic back pain Is this a current diagnosis for this admission?: Yes Plan: Pt written for Hydrocodone PRN. (6) Emesis Is this a current diagnosis for this admission?: Yes Plan: Phenergan PRN from IV to PO. (7) DVT prophylaxis Is this a current diagnosis for this admission?: Yes Plan: SCDs - Time Time Spent with patient: 25-34 minutes
[2017-05-24] MEDS ORDERED: AMLODIPINE BESYLATE 5 MG TABLET PO ONE (09:58)
[2017-05-24] MEDS ORDERED: LISINOPRIL 5 MG TABLET PO ONE (09:59)
[2017-05-24] MEDS: FOLIC ACID 1 MG TABLET PO SCH (10:00)
[2017-05-24] MEDS: NICOTINE 21 MG/24 HR PATCH.TD24 TD SCH (10:00)
[2017-05-24] MEDS: MULTIVITAMIN TABLET PO SCH (10:00)
[2017-05-24] MEDS: THIAMINE HCL 100 MG TABLET PO SCH (10:00)
[2017-05-24] MEDS: LIDOCAINE 5% (700 MG) TRANSDERMAL ADH..PATCH TP SCH ×2 (10:02→12:03)
[2017-05-25] MEDS: HYDROCODONE/ACETAMINOPHEN 10-325 MG TABLET PO PRN ×2 (00:03→06:23)
[2017-05-25] MEDS: NORMAL SALINE 1000 ML 1,000 ML IV PRN (03:00)
[2017-05-25] MEDS: LORAZEPAM INJ 2 MG/1 ML VIAL IV PRN (04:46)
[2017-05-25 05:31] VITALS: BP 148/85
[2017-05-25] MEDS: CLONAZEPAM 1 MG TABLET PO SCH (06:24)
[2017-05-25] MEDS: LANSOPRAZOLE 30 MG TAB.RAP.DR PO SCH (06:24)
[2017-05-25] MEDS: HEPARIN SOD (PORCINE) 5,000 UNIT/ML 1 ML SYRINGE SUBCUT SCH (06:25)
[2017-05-25 06:41] LABS: ABSOLUTE BASOPHILS # (AUTO) 0.1 10^3/uL (0.0-0.2); ABSOLUTE EOSINOPHILS # (AUTO) 0.3 10^3/uL (0.0-0.6); ABSOLUTE LYMPHOCYTES (AUTO) 2.5 10^3/uL (0.5-4.7); ABSOLUTE MONOCYTES (AUTO) 0.4 10^3/uL (0.1-1.4); ABSOLUTE NEUT (AUTO) 4.1 10^3/uL (1.7-8.2); BASOPHILS % (AUTO) 0.7 % (0-2); EOSINOPHILS % (AUTO) 3.9 % (0-6); HEMATOCRIT 40.2 % (37.9-51.0); HEMOGLOBIN 13.5 g/dL (13.5-17.0); LYMPHOCYTES % (AUTO) 34.5 % (13-45); MEAN CORPUSCULAR HEMOGLOBIN 32.9 pg (27.0-33.4); MEAN CORPUSCULAR HGB CONC 33.7 g/dL (32.0-36.0); MEAN CORPUSCULAR VOLUME 98 fl (80-97); MONOCYTES % (AUTO) 5.1 % (3-13); PLATELET COUNT 314 10^3/uL (150-450); RED BLOOD COUNT 4.12 10^6/uL (4.35-5.55); RED CELL DISTRIBUTION WIDTH 14.2 % (11.5-14.0); SEGMENTED NEUTROPHILS % (AUTO) 55.8 % (42-78); TOTAL CELLS COUNTED % (AUTO) 100 %; WHITE BLOOD COUNT 7.4 10^3/uL (4.0-10.5)
[2017-05-25 07:37] LABS: ALANINE AMINOTRANSFERASE 56 U/L (21-72); ALBUMIN 3.5 g/dL (3.5-5.0); ALKALINE PHOSPHATASE 51 U/L (38-126); ANION GAP 10 (5-19); ASPARTATE AMINO TRANSFERASE 28 U/L (17-59); BILIRUBIN,DIRECT 0.1 mg/dL (0.0-0.4); BILIRUBIN,TOTAL 0.4 mg/dL (0.2-1.3); BLOOD UREA NITROGEN 16 mg/dL (7-20); CALCIUM 9.2 mg/dL (8.4-10.2); CARBON DIOXIDE 27 mmol/L (22-30); CHLORIDE 103 mmol/L (98-107); GLUCOSE 77 mg/dL (75-110); POTASSIUM 4.3 mmol/L (3.6-5.0); SODIUM 140.1 mmol/L (137-145); TOTAL PROTEIN 5.6 g/dL (6.3-8.2)
[2017-05-25] MEDS ORDERED: AMLODIPINE BESYLATE 5 MG TABLET PO SCH (10:00)
[2017-05-25] MEDS ORDERED: LISINOPRIL 5 MG TABLET PO SCH (10:00)
--- NOTE | 2017-05-25 10:39 | PSYCHOLOGICAL NOTE ---
Psych Note - Psych Note Psych Note: Reason for Consult: Detox; Alcohol Consent Permissions: none given at this time The patient was seen by the Behavior Health Team on 05/12/2017 for alcohol withdrawal and wanting detox. I was previously admitted on 05/08/2017 for similar ethology. Patient disclosed he has classic signs of withdrawal such as throwing up, the sweats, ect; however, "I am seeing hair or ants everywhere and faces jumping out at me for the last three days." He original stated this was the first time it has happened but when reminded of his previous hospitalization he confirmed he is seeing the same things. The patient reports the visual disturbances did not go away until he AMA from the hospital and started drinking again. Patient reports drinking approximately half a gallon to a gallon a day of whiskey, has been drinking for the last 5 years and has attempt never attempted sobriety with professional assistance (i.e. outpatient and/or inpatient substance abuse treatment). Patient disclosed "I have tried one or two times on my own...I can't do it on my own." Patient is asking for mental health resources because he is new to the area and does not know local providers. 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 He continued to ask about the programs locally the distance because he stated he does not have transportation. Patient is alert and orientated to person, place, time and circumstance. Mood is dysphoric with flat affect. Patient denies suicidal and homicidal ideation. Patient discloses visual hallucinations then stated he was going blind; patient was wearing glasses and maintained good eye contact. Thought processes are organized and linear. Conversational speech was within normal rate, tone and prosody. Intellectual abilities appear to be within the average range. Attention and concentration were fair. Insight, judgment, impulse control are fair. Medication recommendations per [facility]'s contracted psychiatrist, MD Bharathi, are as follows: 1. Stop CIWA 2. Effexor 37.5mg Twice daily 3. Buspar 10mg Twice Daily 291.81 (F10.232) alcohol withdrawal; with perceptual disturbances Impression\\plan: Patient is considered psychiatrically clear. Patient discloses wanting assistance for detox. He has been admitted to the hospital for withdrawal symptoms. Patient is currently verbalizes psychosis (i.e. perceptual disturbances/visual hallucinations) connected to withdrawal. Medication recommendations have been provided. Outpatient substance abuse resources will be provided to funeral planner. Dr. Narayan was consulted on the care and management of this patient.
--- NOTE | 2017-05-25 21:42 | Progress Note ---
Provider Note Provider Note: Patient unfortunately left AMA before he was evaluated by myself.
== END 2017-05-25 11:00 | disposition left against medical advice (07) | DRG 894 ==
LOC: ER 17:40 → EH 23:55 → ICU 05-21 07:33 → 3W 05-22 21:00
PROVIDERS: ADMIT Internal Medicine Geriatric Medicine; ATTEND Internal Medicine Geriatric Medicine
DX: F10.231 Alcohol dependence with withdrawal delirium (principal); K29.81 Duodenitis with bleeding; F17.210 Nicotine dependence, cigarettes, uncomplicated; J44.9 Chronic obstructive pulmonary disease, unspecified; M54.9 Dorsalgia, unspecified; G89.29 Other chronic pain; Z88.8 Allergy status to other drugs, medicaments and biological substances; Z90.49 Acquired absence of other specified parts of digestive tract
CPT/HCPCS: 36415; 80053; 80307; 83690; 83735; 85025; 85027; 96361; 96374; 96375; 96376; 99285; J1644; J2060; J2405; J2550; J3360; J3490; J7030

== ENCOUNTER 2017-05-28 09:42 | Emergency (ER) | payer MEDICARE ==
[2017-05-28] MEDS ORDERED: LORAZEPAM INJ 2 MG/1 ML VIAL IV ONE (10:34)
--- NOTE | 2017-05-28 10:38 | ER Document Report ---
ED Medical Screen (RME) - General Chief Complaint: Alcohol Withdrawl Stated Complaint: DETOX Time Seen by Provider: 05/28/17 09:55 Information source: Patient Notes: Mr. Olson is a 56 y.o male with a PMHx of alcohol abuse who presents to the ED wanting to Detox from alcohol. He states that he normally drinks a half gallon of whiskey a day. His last drink was two days ago. I have greeted and performed a rapid initial assessment of the patient. A comprehensive ED assessment and evaluation of the patient, analysis of test results, and completion of the medical decision making process will be conducted by additional ED providers. TRAVEL OUTSIDE OF THE [place] IN LAST 30 DAYS: No - Related Data Allergies/Adverse Reactions: diphenhydramine Adverse Reaction (Verified 05/28/17 10:29) Dystonia morphine Adverse Reaction (Verified 05/28/17 10:29) DIAPHORESIS Past Medical History - General Information source: Patient - Social History Chew tobacco use (# tins/day): No Frequency of alcohol use: 1/2gal [place] whiskey per day Drug Abuse: None Pulmonary Medical History: Reports: Hx COPD Renal/ Medical History: Denies: Hx Peritoneal Dialysis Psychiatric Medical History: Reports: Hx Anxiety, Hx Bipolar Disorder, Hx Depression Past Surgical History: Reports: Hx Abdominal Surgery - hernia, Hx Cholecystectomy, Hx Orthopedic Surgery - L4-L5 laminectomy., Other - right inguinal hernia repair; left ulnar nerve replacement. - Immunizations History of Influenza Vaccine for 12/2016 - 05/2017 Season: Yes Review of Systems - Review of Systems Constitutional: See HPI, Other - Alcohol detox EENT: No symptoms reported Cardiovascular: No symptoms reported Respiratory: No symptoms reported Gastrointestinal: No symptoms reported Genitourinary: No symptoms reported Male Genitourinary: No symptoms reported Musculoskeletal: No symptoms reported Skin: No symptoms reported Hematologic/Lymphatic: No symptoms reported Neurological/Psychological: No symptoms reported -: Yes All other systems reviewed and negative Physical Exam - Vital signs Vitals: Temp Pulse Resp BP Pulse Ox 99.3 F 78 22 H 130/94 H 97 05/28/17 09:53 05/28/17 09:53 05/28/17 09:53 05/28/17 09:53 05/28/17 09:53 - Notes Notes: Physical Exam: General: Alert, appears well. Trembling. HEENT: Normocephalic. Atraumatic. PERRLA. Extraocular movements intact. Oropharynx clear. Neck: Supple. Respiratory: No respiratory distress. Abdominal: Normal Inspection. No distension. Extremities: Moves all four extremities. Neurological: Normal cognition. AAOx4. Normal speech. Psychological: Normal affect. Normal Mood. Skin: Warm. Dry. Normal color. Course - Vital Signs Vital signs: Temp Pulse Resp BP Pulse Ox 99.3 F 78 22 H 130/94 H 97 05/28/17 09:53 05/28/17 09:53 05/28/17 09:53 05/28/17 09:53 05/28/17 09:53 Scribe Documentation - Scribe Written by Ceferino:: Ceferino Sharif 05/28/17 1037 acting as scribe for :: Ray
[2017-05-28] MEDS ORDERED: ONDANSETRON 4 MG TAB.RAPDIS PO ONE (10:55)
[2017-05-28] MEDS ORDERED: GABAPENTIN 300 MG CAPSULE PO ONE (11:00)
--- NOTE | 2017-05-28 11:01 | ER Document Report ---
ED Substance Abuse / Acc. OD - General Chief Complaint: Alcohol Withdrawl Stated Complaint: DETOX Time Seen by Provider: 05/28/17 09:55 Mode of Arrival: Ambulatory Information source: Patient Notes: 56-year-old chronic alcoholic came back to the emergency room today after leaving AGAINST MEDICAL ADVICE for a DT's admission on May 21. He has been drinking until 2 days ago. He states he is seeing ants and has intermittent nausea without vomiting today. He states that he has tremors that come and go. He denies suicidal or homicidal ideation. Emphatically he states he does not want to . He has had previous AMA at [facility] and returns home to his trailer to drink. TRAVEL OUTSIDE OF THE [place] IN LAST 30 DAYS: No - Related Data Allergies/Adverse Reactions: diphenhydramine Adverse Reaction (Verified 05/28/17 13:19) Dystonia morphine Adverse Reaction (Verified 05/28/17 13:19) DIAPHORESIS Past Medical History - General Information source: Patient - Social History Smoking Status: Current Every Day Smoker Chew tobacco use (# tins/day): No Frequency of alcohol use: 1/2gal [place] whiskey per day Drug Abuse: None Family History: Reviewed & Not Pertinent Patient has suicidal ideation: No Patient has homicidal ideation: No Pulmonary Medical History: Reports: Hx COPD Renal/ Medical History: Denies: Hx Peritoneal Dialysis Psychiatric Medical History: Reports: Hx Anxiety, Hx Bipolar Disorder, Hx Depression Past Surgical History: Reports: Hx Abdominal Surgery - hernia, Hx Cholecystectomy, Hx Orthopedic Surgery - L4-L5 laminectomy., Other - right inguinal hernia repair; left ulnar nerve replacement. Review of Systems - Review of Systems Constitutional: No symptoms reported EENT: No symptoms reported Cardiovascular: No symptoms reported Respiratory: No symptoms reported Gastrointestinal: See HPI Genitourinary: No symptoms reported Male Genitourinary: No symptoms reported Musculoskeletal: No symptoms reported Skin: No symptoms reported Hematologic/Lymphatic: No symptoms reported Neurological/Psychological: See HPI Physical Exam - Vital signs Vitals: Temp Pulse Resp BP Pulse Ox 99.3 F 78 22 H 130/94 H 97 05/28/17 09:53 05/28/17 09:53 05/28/17 09:53 05/28/17 09:53 05/28/17 09:53 Interpretation: Normal, Other - When no one is in the room he has his glasses on and texting without tremors. HR 90's, BP 150's/90's. - General General appearance: Appears well, Alert - HEENT Head: Normocephalic, Atraumatic Eyes: Normal Conjunctiva: Normal Pupils: PERRL - Respiratory Respiratory status: No respiratory distress Chest status: Nontender Breath sounds: Normal Chest palpation: Normal - Cardiovascular Rhythm: Regular Heart sounds: Normal auscultation Murmur: No - Abdominal Inspection: Normal Distension: No distension Bowel sounds: Normal Tenderness: Nontender Organomegaly: No organomegaly - Back Back: Normal, Nontender, Tender - Extremities General upper extremity: Normal inspection, Nontender, Normal color, Normal ROM , Normal temperature General lower extremity: Normal inspection, Nontender, Normal color, Normal ROM , Normal temperature, Normal weight bearing. No: Alaina's sign - Neurological Neuro grossly intact: Yes Cognition: Normal Orientation: Disoriented to time [place] Coma Scale Eye Opening: Spontaneous [place] Coma Scale Verbal: Oriented [place] Coma Scale Motor: Obeys Commands [place] Coma Scale Total: 15 Speech: Normal Motor strength normal: LUE, RUE, LLE, RLE Sensory: Normal - Psychological Associated symptoms: Normal affect, Normal mood - Skin Skin Temperature: Warm Skin Moisture: Dry Skin Color: Normal Course - Re-evaluation Re-evalutation: 05/28/17 11:[address] Cole. When you pass by the patient's room when he does not know that you are looking at him he has his glasses on and is looking at his phone without tremors. Treat with Neurontin and Zofran for the nausea. 05/28/17 11:06 The patient can follow-up with [facility] and will give him medication support with Neurontin and zofran prescription. 05/28/17 11:19 [facility] technical sales associate will check on the pt tomorrow. she saw him in the ER. Pt is requesting transportation back to his home. The charge nurse denied pt request. 05/28/17 14:06 - Vital Signs Vital signs: Temp Pulse Resp BP Pulse Ox 99.3 F 78 21 H 154/86 H 97 05/28/17 09:53 05/28/17 09:53 05/28/17 11:07 05/28/17 11:07 05/28/17 11:07 Discharge - Discharge Clinical Impression: Alcoholism, Alcohol abuse, Nausea Condition: Good Disposition: HOME, SELF-CARE Instructions: Antinausea Medication ([facility]), Chronic Alcoholism ([facility]) Additional Instructions: resources given to you [facility] open Tuesday through Tuesday [facility] Crisis Team someone will meet you immediately if you call them prescriptions for Neurontin and Zofran to er if symptoms worsen do not drink alcohol Prescriptions: Gabapentin [Neurontin 300 mg Capsule] 300 mg PO ASDIR PRN #12 capsule PRN Reason: Ondansetron HCl [Zofran 4 mg Tablet] 1 - 2 tab PO Q4H PRN #30 tablet PRN Reason:
[2017-05-28 11:41] VITALS: BP 154/86
== END 2017-05-28 11:57 | disposition home or self-care (01) ==
LOC: ER 09:42
DX: F10.20 Alcohol dependence, uncomplicated (principal); R11.0 Nausea; F17.200 Nicotine dependence, unspecified, uncomplicated; Z90.49 Acquired absence of other specified parts of digestive tract; Z88.6 Allergy status to analgesic agent
CPT/HCPCS: 99284; A9270 ×2; S0119

== ENCOUNTER 2017-05-28 13:18 | Inpatient (IN) | payer MEDICARE ==
[2017-05-28] MEDS ORDERED: NORMAL SALINE 1000 ML 2,000 ML IV ONE (14:29)
[2017-05-28] MEDS ORDERED: PHENOBARBITAL INJ 65 MG/ML VIAL IV ONE ×2 (14:50→16:12)
--- NOTE | 2017-05-28 14:50 | ER Document Report ---
ED Substance Abuse / Acc. OD - General Mode of Arrival: Ambulatory Information source: Patient TRAVEL OUTSIDE OF THE [place] IN LAST 30 DAYS: No <KARO PERKINS - Last Filed: 05/28/17 18:37> <TIFFANIE IVORY - Last Filed: 05/29/17 01:30> - General Chief Complaint: Alcohol Withdrawl Stated Complaint: DETOX Time Seen by Provider: 05/28/17 14:29 Notes: 56-year-old alcoholic who has not had alcohol in 2 days returns to the emergency room after being in the waiting room from the morning discharge. He states he feels worse and he feels like he is going to if he goes home. I consulted with Dr. Driscoll again and he recommends using the phenobarbital alcohol withdrawal regimen of 260 mg IV followed by subsequent doses of 130 mg as needed. I will place the patient on the monitor and also give him IV fluid. ( KARO PERKINS) - Related Data Allergies/Adverse Reactions: diphenhydramine Adverse Reaction (Verified 05/28/17 13:19) Dystonia morphine Adverse Reaction (Verified 05/28/17 13:19) DIAPHORESIS Past Medical History - General Information source: Patient - Social History Smoking Status: Current Every Day Smoker Frequency of alcohol use: Heavy Drug Abuse: Marijuana Lives with: Alone Family History: Reviewed & Not Pertinent Pulmonary Medical History: Reports: Hx COPD Renal/ Medical History: Denies: Hx Peritoneal Dialysis Psychiatric Medical History: Reports: Hx Anxiety, Hx Bipolar Disorder, Hx Depression Past Surgical History: Reports: Hx Abdominal Surgery - hernia, Hx Cholecystectomy, Hx Orthopedic Surgery - L4-L5 laminectomy., Other - right inguinal hernia repair; left ulnar nerve replacement. <KARO PERKINS - Last Filed: 05/28/17 18:37> Review of Systems - Review of Systems Constitutional: See HPI EENT: No symptoms reported Cardiovascular: No symptoms reported Respiratory: No symptoms reported Gastrointestinal: See HPI Genitourinary: No symptoms reported Male Genitourinary: No symptoms reported Musculoskeletal: No symptoms reported Skin: No symptoms reported Hematologic/Lymphatic: No symptoms reported Neurological/Psychological: See HPI <KARO PERKINS - Last Filed: 05/28/17 18:37> Physical Exam - Vital signs Interpretation: Normal, Hypertensive - mild - General General appearance: Alert, Anxious In distress: None - HEENT Head: Normocephalic, Atraumatic Eyes: Normal Conjunctiva: Normal Extraocular movements intact: Yes - no nystagmus Pupils: PERRL Mucous membranes: Normal Neck: Supple. No: Lymphadenopathy - Respiratory Respiratory status: No respiratory distress Chest status: Nontender Breath sounds: Normal Chest palpation: Normal - Cardiovascular Rhythm: Regular, Other - PACS Heart sounds: Normal auscultation Murmur: No - Abdominal Inspection: Normal Distension: No distension Bowel sounds: Normal Tenderness: Nontender. No: Tender Organomegaly: No organomegaly - Back Back: Normal, Nontender - Extremities General upper extremity: Normal inspection, Nontender, Normal color, Normal ROM , Normal temperature General lower extremity: Normal inspection, Nontender, Normal color, Normal ROM , Normal temperature, Normal weight bearing. No: Alaina's sign - Neurological Neuro grossly intact: Yes Cognition: Normal, Other - seeing ants and faces coming at him no auditory hallucinations Orientation: AAOx4 [place] Coma Scale Eye Opening: Spontaneous Kay[place] Coma Scale Verbal: Oriented [place] Coma Scale Motor: Obeys Commands [place] Coma Scale Total: 15 Speech: Normal Motor strength normal: LUE, RUE, LLE, RLE Sensory: Normal - Psychological Associated symptoms: Normal affect, Anxious - Skin Skin Temperature: Warm Skin Moisture: Dry Skin Color: Normal Skin irregularity: negative: Rash <KARO PERKINS - Last Filed: 05/28/17 18:37> <TIFFANIE IVORY - Last Filed: 05/29/17 01:30> - Vital signs Vitals: Temp Pulse Resp BP Pulse Ox 99.1 F 114 H 22 H 99/71 L 94 05/28/17 13:22 05/28/17 13:22 05/28/17 13:22 05/28/17 13:22 05/28/17 13:22 - Extremities Notes: arm and legs, under tongue tremulous. (KARO PERKINS) - Psychological Notes: seeing ants (KARO PERKINS) Course - Laboratory Result Diagrams: 05/28/17 15:10 05/28/17 15:10 <KARO PERKINS - Last Filed: 05/28/17 18:37> - Laboratory Result Diagrams: 05/28/17 15:10 05/28/17 18:00 <TIFFANIE IVORY - Last Filed: 05/29/17 01:30> - Re-evaluation Re-evalutation: 05/28/17 16:15 Patient states he does not think the phenobarbital agrees with him heart rate is 89-92. He states he has increased abdominal pain epigastric area. I did order lab work at this time with a lipase. The blood is already down in the lab. EKG NSR, no ectopy. 05/28/17 17:36 pt declines 2nd dose of Phenobarbital as treatment. Psych no rec for medication. giving PO thiamine, prevacid, gi cocktail. 05/28/17 18:05 IV restarted chemistry had to be redrawn. I have asked Dr. Ivory to evaluate the patient because I do not know when the endpoint is for this gentleman. He actually does look better than he did this morning he is more conversational. He does have mild tremors. She wants me to get him admitted for DTs at a EtOH level and give him Ativan 2 mg IV. Conversation with Dr. Ashley and she was arguing that it is "not appropriate to call me at this time because I want to go home and it is screwing me over and I will stay late to admit this patient." " what do you want me to do, why don't you give the phenobarbital again, why are you letting the patient decide" I asked if she would like to speak to Dr. Norris and she said no, and repeated more the same. I handed the phone to Dr. Ivory and it was a heated conversation in which Dr. Ashley finally agree to see the pt. Dr Ivory wrote an addendum on this chart. 05/28/17 18:30 drug tox positive for benzo and marijuana. Diet ordered for the pt. (KARO PERKINS) 05/29/17 01:14 I was asked to see the patient by [employer]CH[employer]IC. Mr Olson is a 56 y/o male with history of alcoholism that presents back to the emergency department after being discharged , (and before leaving the waiting room) for similar symptoms. Patient was initially managed by Dr Driscoll. Upon my exam patient is tremulous, tachycardic and states he is having tactile and visual hallucinations. Patient was initially treated with phenobarbital with no improvement of symptoms. Patient's last reported drink was 3 days ago. Patient is a daily heavy drinker with history of alcohol withdrawl. He repeatedly states he feels like he is going to if he goes home. Advised [employer]IC Karo Perkins that patient should be admitted for alcohol withdrawl. Serum ETOH is negative. The phone was handed to me in mid -sentence during the conversation between Dr Ashley and Karo Perkins. I introduced myself and stated to the hospitalist that we had admission for alcohol withdrawl. Prior to hearing my history, I was told "this is an inappropriate consult". When asked why she thought admission for alcohol withdrawl was inappropriate. she stated that the patient has been "down there since 8 am and you're consulting me now" I want to get out on time." Since I am new to the hospital I was unaware of a time frame the would deem a medical consult inappropriate. Patient was admitted to the hospitalist. My further recs were Ativan 2mg IV, folate, fluids, admission. I had limited involvement in this care. (TIFFANIE IVORY) - Vital Signs Vital signs: Temp Pulse Resp BP Pulse Ox 98.4 F 114 H 20 123/62 93 05/28/17 14:16 05/28/17 14:16 05/28/17 22:01 05/28/17 22:01 05/28/17 22:01 - Laboratory Laboratory results interpreted by me: 05/28/17 05/28/17 05/28/17 15:10 16:27 18:00 WBC 14.2 H RDW 14.5 H Seg Neutrophils % 85.8 H Lymphocytes % 9.1 L Absolute Neutrophils 12.2 H Potassium 5.2 H Direct Bilirubin 0.6 H Urine Protein 100 H Urine Ketones TRACE H Discharge - Discharge Admitting Provider: Hospitalist Unit Admitted: Telemetry <KARO PERKINS - Last Filed: 05/28/17 18:37> <TIFFANIE IVORY - Last Filed: 05/29/17 01:30> - Discharge Clinical Impression: Alcohol withdrawal Qualifiers: Complication of substance-induced condition: with perceptual disturbance Qualified Code(s): F10.232 - Alcohol dependence with withdrawal with perceptual disturbance Condition: Fair Disposition: ADMITTED OBSERVATION
[2017-05-28] MEDS ORDERED: ONDANSETRON HCL INJ/PF 4 MG/2 ML SDV IV ONE (16:04)
--- NOTE | 2017-05-28 16:09 | PSYCHOLOGICAL NOTE ---
Psych Note - Psych Note Psych Note: Reason for consult: Alcohol withdrawal and use Time of eval: 3:56 pm Final Disposition: 5:13 PM Patient is a 56-year-old male. Patient reports that he has been drinking for 45 years. Patient reports that he drinks half a gallon of alcohol per day. Patient reports that he attempted to stop drinking because he feels too old to be addicted to alcohol. Patient reports that 3 days ago he stopped drinking and believes he is withdrawing from alcohol. Patient reports that he is shaky and has been vomiting for 24 hours. Patient reports that he is seeing ants or flies everywhere on the white [place]. Patient reports that he is seeing hair everywhere. Patient stated "I know it sounds crazy because I know it cannot be there but it is there". Patient reports that faces or jumping out of him. Patient reports that he feels the medication he is on is not agreeing with him causing watery eyes and making him gag. Patient reports that he feels like he has hayfever fever. Patient reports that he wants to detox. Patient reports he called the hotline that stated they are helping him to get a hold of detox. Patient reports he has been disabled since 2000. Patient reports that he wants assistance getting alcohol treatment. Patient reports that he was discharged from the hospital and could not make it to the pharmacy to refill his prescriptions because he did not feel well and had to wait 2 hours to check back in. Clinician observed patient's hands and arms are shaking. Clinician observed patient was seen previously in the emergency department for similar symptoms and complaints. Condition conducted comprehensive chart review and included below note previously documented by mental health: "The patient was seen by the Behavior Health Team on 05/12/2017 for alcohol withdrawal and wanting detox. I was previously admitted on 05/08/2017 for similar ethology. Patient disclosed he has classic signs of withdrawal such as throwing up, the sweats, ect; however, "I am seeing hair or ants everywhere and faces jumping out at me for the last three days." He original stated this was the first time it has happened but when reminded of his previous hospitalization he confirmed he is seeing the same things. " When clinician returned to facilitate a conversation regarding patient not following through with original recommendations patient explained he could not afford the prescriptions and thus did not follow through. Patient reports that he did call the mobile crisis line today and intends on following through with that recommendation. Medication recommendations made by [facility] contracted psychiatric provider Dr. Bharathi MD includes: NONE Diagnosis: 291.81 (F 10.232) alcohol withdrawal V15.81( Z 91.19) Nonadherence to medical treatment V60.2 ( Z59.6) Low income Impression/plan: patient is psychiatrically cleared for discharge. Clinician observed patient was seen previously in the emergency department for similar symptoms and complaints. Clinician observed patient was recommended for [facility] crisis management to assist with linking patient to substance use treatment and detox facility. Clinician observed patient did not follow through with recommendations and returned to the emergency department for the same symptoms. Recommendation for patient to follow through with original recommendations to include contacting [facility] mobile crisis management for linkage to substance use treatment. Consulted with Dr. Narayan regarding the management and care of patient.
[2017-05-28] MEDS ORDERED: LANSOPRAZOLE 30 MG TAB.RAP.DR PO ONE (16:11)
[2017-05-28] MEDS ORDERED: LIDOCAINE 2% VISCOUS SOLN 20 ML UDCUP PO ONE (16:11)
[2017-05-28] MEDS ORDERED: MAG HYDROX/AL HYDROX/SIMETH SUSP 30 ML UDCUP PO ONE (16:11)
--- NOTE | 2017-05-28 16:29 | EKG REPORT ---
SEVERITY:- ABNORMAL ECG - SINUS RHYTHM ATRIAL PREMATURE COMPLEX LARS, CONSIDER BIATRIAL ABNORMALITIES INCOMPLETE RBBB AND LAFB POOR R WAVE PROGRESSION ANTERIOR PRECORDIAL LEADS, UNCERTAIN ETIOLOGY. : Confirmed by: Cyrus Galdamez MD 28-May-2017 16:28:34
[2017-05-28 16:32] LABS: ABSOLUTE BASOPHILS # (AUTO) 0.1 10^3/uL (0.0-0.2); ABSOLUTE LYMPHOCYTES (AUTO) 1.3 10^3/uL (0.5-4.7); ABSOLUTE MONOCYTES (AUTO) 0.6 10^3/uL (0.1-1.4); ABSOLUTE NEUT (AUTO) 12.2 10^3/uL (1.7-8.2); BASOPHILS % (AUTO) 0.8 % (0-2); EOSINOPHILS % (AUTO) 0.1 % (0-6); HEMATOCRIT 48.8 % (37.9-51.0); HEMOGLOBIN 16.7 g/dL (13.5-17.0); LYMPHOCYTES % (AUTO) 9.1 % (13-45); MEAN CORPUSCULAR HEMOGLOBIN 33.2 pg (27.0-33.4); MEAN CORPUSCULAR HGB CONC 34.2 g/dL (32.0-36.0); MEAN CORPUSCULAR VOLUME 97 fl (80-97); MONOCYTES % (AUTO) 4.2 % (3-13); PLATELET COUNT 394 10^3/uL (150-450); RED BLOOD COUNT 5.02 10^6/uL (4.35-5.55); RED CELL DISTRIBUTION WIDTH 14.5 % (11.5-14.0); SEGMENTED NEUTROPHILS % (AUTO) 85.8 % (42-78); TOTAL CELLS COUNTED % (AUTO) 100 %; WHITE BLOOD COUNT 14.2 10^3/uL (4.0-10.5)
[2017-05-28 17:04] LABS: APPEARANCE,URINE SLIGHTLY-CLOUDY; BILIRUBIN,URINE NEGATIVE (NEGATIVE); COLOR,URINE DARK YELLOW; GLUCOSE, URINE NEGATIVE (NEGATIVE); KETONES,URINE TRACE mg/dL (NEGATIVE); LEUKOCYTE ESTERASE,URINE NEGATIVE (NEGATIVE); NITRITE,URINE NEGATIVE (NEGATIVE); PROTEIN,URINE 100 mg/dL (NEGATIVE); UROBILINOGEN,URINE NEGATIVE mg/dL (<2.0)
[2017-05-28 17:16] LABS: URINE BENZODIAZEPINES SCREEN UNCONFIRMED POSITIVE; URINE COCAINE SCREEN NEGATIVE; URINE MARIJUANA (THC) SCREEN UNCONFIRMED POSITIVE; URINE METHADONE SCREEN NEGATIVE; URINE PHENCYCLIDINE SCREEN NEGATIVE
[2017-05-28 17:17] LABS: URINE BARBITURATES SCREEN NEGATIVE
[2017-05-28] MEDS ORDERED: THIAMINE HCL 100 MG TABLET PO ONE (17:43)
[2017-05-28] MEDS ORDERED: LORAZEPAM INJ 2 MG/1 ML VIAL IV ONE (18:00)
[2017-05-28 18:39] LABS: INTERNATIONAL RATION (INR) 1.01
[2017-05-28 18:53] LABS: ALANINE AMINOTRANSFERASE 57 U/L (21-72); ALBUMIN 4.5 g/dL (3.5-5.0); ALKALINE PHOSPHATASE 63 U/L (38-126); ANION GAP 11 (5-19); ASPARTATE AMINO TRANSFERASE 37 U/L (17-59); BILIRUBIN,DIRECT 0.6 mg/dL (0.0-0.4); BILIRUBIN,TOTAL 1.3 mg/dL (0.2-1.3); BLOOD UREA NITROGEN 18 mg/dL (7-20); CALCIUM 9.2 mg/dL (8.4-10.2); CARBON DIOXIDE 25 mmol/L (22-30); CHLORIDE 102 mmol/L (98-107); GLUCOSE 92 mg/dL (75-110); SODIUM 138.4 mmol/L (137-145); TOTAL PROTEIN 6.9 g/dL (6.3-8.2)
--- NOTE | 2017-05-28 18:59 | PDOC H&P ---
History of Present Illness Admission Date/PCP: No PCP. Patient recently moved here from [place]. History of Present Illness: JOHN DIAMOND is a 56 year old male who presents for alcohol detox. The patient is a known alcohol abuser. He has been having difficulty with attempting cessation of alcohol for many years. The patient states that he has not had a drink in 3 days. He describes himself as shaking from the inside out. He is having visual hallucinations. He states that his eyes are bugging out and he is seeing ants and had "" hair everywhere. When he came into the emergency department at approximately 8:00 this morning he was given a dose of phenobarbital. This led to a stomachache and watery eyes. Therefore, he refused any additional phenobarbital. The patient was seen by psychiatry. Arrangements were made for outpatient detox. However, the patient became more tremulous and therefore I was called to admit the patient. The patient has been having vomiting over the last 2 days since stopping alcohol. At the current time he is having dry heaves. He denies any hematemesis or melena. The patient's current alcohol intake is approximately one half a gallon per day. Currently, he is not using any home medications or [id number] medications. Past Medical History Psychiatric Medical History: Reports: Bipolar Disorder, Depression Past Surgical History Past Surgical History: Reports: Cholecystectomy, Herniorrhaphy, Orthopedic Surgery - L4-L5 laminectomy., Other - right inguinal hernia repair; left ulnar nerve replacement. Social History Lives with: Alone Smoking Status: Current Every Day Smoker Frequency of Alcohol Use: Heavy Last Alcohol Use: 05/25/17 Hx Recreational Drug Use: No Drugs: None Hx Prescription Drug Abuse: No - Advance Directive Resuscitation Status: Full Code Surrogate healthcare decision maker:: The patient has stated that his oldest sister, Vandana Huertas can be his decision maker. However, he does not have her phone number. If we are unable to get in touch with Vandana Huertas we can reach a friend named Christy. She prefers to go by [employer] and her number is [phone]. Family History Family History: Reviewed & Not Pertinent Parental Family History Reviewed: Yes - Mother has a history of colon cancer Children Family History Reviewed: Yes Sibling(s) Family History Reviewed.: Yes Medication/Allergy Home Medications: Gabapentin [Neurontin 300 mg Capsule] 300 mg PO ASDIR PRN #12 capsule 05/28/17 Ondansetron HCl [Zofran 4 mg Tablet] 1 - 2 tab PO Q4H PRN #30 tablet 05/28/17 Allergies/Adverse Reactions: diphenhydramine Adverse Reaction (Verified 05/28/17 13:19) Dystonia morphine Adverse Reaction (Verified 05/28/17 13:19) DIAPHORESIS Review of Systems Constitutional: PRESENT: anorexia Eyes: PRESENT: visual disturbances Ears: ABSENT: as per HPI, hearing changes, other Nose, Mouth, and Throat: ABSENT: as per HPI, headache(s), mouth pain, sore throat, vertigo, other Breasts: ABSENT: as per HPI, other Cardiovascular: ABSENT: as per HPI, chest pain, dyspnea on exertion, edema, orthropnea, palpitations, other Respiratory: ABSENT: as per HPI, cough, dyspnea, hemoptysis, sputum, other Gastrointestinal: PRESENT: vomiting Genitourinary: ABSENT: as per HPI, difficulty urinating, dysuria, hematuria, nocturia, other Musculoskeletal: ABSENT: as per HPI, back pain, deformity, joint swelling, muscle weakness, other Integumentary: ABSENT: as per HPI, diaphoresis, erythema, lesions, pruritus, rash, wounds, other Neurological: PRESENT: as per HPI Psychiatric: PRESENT: hallucinations Endocrine: ABSENT: as per HPI, cold intolerance, flushing, heat intolerance, menstrual abnormalities, polydipsia, polyphagia, polyuria, other Hematologic/Lymphatic: ABSENT: as per HPI, easy bleeding, easy bruising, lymphadenopathy, other Allergic/Immunologic: ABSENT: as per HPI, seasonal rhinorrhea, other Physical Exam Vital Signs: Temp Pulse Resp BP Pulse Ox 98.4 F 114 H 26 H 176/84 H 96 05/28/17 14:16 05/28/17 14:16 05/28/17 18:01 05/28/17 18:01 05/28/17 18:01 Additional comments: The patient is noted to be a mildly disheveled middle-aged white male. Currently, his cognition and mentation are appropriate and he can answer all of my questions. His facial appearance is as follows. He would not let me check his pupils for reactivity secondary to a visual disturbance he has with pain to direct light. Otherwise, his facial appearance is fairly unremarkable. His dentition is fair. His neck is supple. His trachea is midline. Thyroid is nonpalpable. He does not have any cervical or supraclavicular lymphadenopathy. His lungs are clear to auscultation bilaterally. His cardiac exam is regular without murmurs, gallops or rubs. The abdomen is soft and flat. Bowel sounds are present in all 4 quadrants. He does not have any guarding or rebound noted and there are no hernias or masses present. The lower extremities are warm to touch. Trace lower extremity edema is present but it is nonpitting. The skin is mildly diaphoretic. Otherwise, the skin is clear without lesions or rashes. The patient is able to move all 4 extremities and follow commands. Neurological exam is nonfocal. Results Laboratory Results: 05/28/17 15:10 05/28/17 05/28/17 05/28/17 15:10 15:10 16:27 WBC 14.2 H RBC 5.02 Hgb 16.7 Hct 48.8 MCV 97 MCH 33.2 MCHC 34.2 RDW 14.5 H Plt Count 394 Seg Neutrophils % 85.8 H Lymphocytes % 9.1 L Monocytes % 4.2 Eosinophils % 0.1 Basophils % 0.8 Absolute Neutrophils 12.2 H Absolute Lymphocytes 1.3 Absolute Monocytes 0.6 Absolute Eosinophils 0.0 Absolute Basophils 0.1 Sodium Cancelled Potassium Cancelled Chloride Cancelled Carbon Dioxide Cancelled Anion Gap Cancelled BUN Cancelled Creatinine Cancelled Est GFR ( Amer) Cancelled Est GFR (Non-Af Amer) Cancelled Glucose Cancelled Calcium Cancelled Total Bilirubin Cancelled AST Cancelled ALT Cancelled Alkaline Phosphatase Cancelled Total Protein Cancelled Albumin Cancelled Lipase Cancelled Urine Color DARK YELLOW Urine Appearance SLIGHTLY-CLOUDY Urine pH 5.0 Ur Specific [place] 1.020 Urine Protein 100 H Urine Glucose (UA) NEGATIVE Urine Ketones TRACE H Urine Blood NEGATIVE Urine Nitrite NEGATIVE Ur Leukocyte Esterase NEGATIVE Urine WBC (Auto) 2 Urine RBC (Auto) 1 Assessment & Plan - Diagnosis (1) Alcohol withdrawal Qualifiers: Complication of substance-induced condition: with perceptual disturbance Qualified Code(s): F10.232 - Alcohol dependence with withdrawal with perceptual disturbance Is this a current diagnosis for this admission?: Yes (2) Alcoholism Is this a current diagnosis for this admission?: Yes (3) Smoker Is this a current diagnosis for this admission?: Yes (4) Leucocytosis Is this a current diagnosis for this admission?: Yes - Time Time Spent: 30 to 50 Minutes - Inpatient Certification Medical Necessity: Need For IV Fluids, Need for Neurological Checks, Risk of Complication if Not Cared For in Hospital - Plan Summary Plan Summary: The patient will be admitted to the hospital. I anticipate that he will need greater than 2 midnights. Therefore, this will be a full admission. He will be placed on the alcohol withdrawal protocol. He will be given supplemental B12 , folate and multivitamin to prevent Wernicke's encephalopathy. We will continue to check fingersticks. His electrolytes are still outstanding. Certainly, his labs will be checked as we are expecting multiple electrolyte abnormalities during this inpatient hospitalization. The patient is noted to have a mild leukocytosis. He does not appear to have an underlying infection. He will not be started on antibiotics at this time.
[2017-05-28] MEDS ORDERED: PROMETHAZINE HCL 25 MG TABLET PO PRN (19:00)
[2017-05-28] MEDS ORDERED: MAG HYDROX/AL HYDROX/SIMETH SUSP 30 ML UDCUP PO PRN (19:00)
[2017-05-28] MEDS ORDERED: ACETAMINOPHEN 325 MG TABLET PO PRN (19:00)
[2017-05-28] MEDS ORDERED: IPRATROPIUM/ALBUTEROL 0.5-2.5 MG/3 ML AMPUL NEB PRN (19:00)
[2017-05-28] MEDS ORDERED: MAGNESIUM HYDROXIDE SUSP 30 ML UDCUP PO PRN (19:00)
[2017-05-28] MEDS ORDERED: DIAZEPAM 5 MG TABLET PO PRN (19:10)
[2017-05-28 19:44] LABS: POTASSIUM 5.2 mmol/L (3.6-5.0)
[2017-05-28] MEDS ORDERED: PANTOPRAZOLE SODIUM 40 MG VIAL IV ONE (21:00)
[2017-05-28] MEDS: DIAZEPAM 5 MG TABLET PO SCH (21:03)
[2017-05-28] MEDS: LORAZEPAM INJ 2 MG/1 ML VIAL IV PRN (21:03)
[2017-05-29] MEDS: LORAZEPAM INJ 2 MG/1 ML VIAL IV PRN ×3 (01:27→11:48)
[2017-05-29] MEDS ORDERED: PANTOPRAZOLE SODIUM 40 MG VIAL IV SCH (10:00)
[2017-05-29] MEDS ORDERED: THIAMINE HCL 100 MG TABLET PO SCH (10:00)
[2017-05-29] MEDS ORDERED: NICOTINE 14 MG/24 HR PATCH.TD24 TD SCH (10:00)
[2017-05-29] MEDS ORDERED: MULTIVITAMIN TABLET PO SCH (10:00)
[2017-05-29] MEDS ORDERED: FOLIC ACID 1 MG TABLET PO SCH (10:00)
[2017-05-29] MEDS ORDERED: NORMAL SALINE 1000 ML 1,000 ML with POTASSIUM CHLORIDE 20 MEQ, MAGNESIUM SULFATE 8 MEQ,... IV SCH ×5 (10:00)
[2017-05-29] MEDS: DIAZEPAM 5 MG TABLET PO SCH (10:40)
[2017-05-29 12:34] LABS: ANION GAP 7 (5-19); BLOOD UREA NITROGEN 22 mg/dL (7-20); CALCIUM 9.1 mg/dL (8.4-10.2); CARBON DIOXIDE 26 mmol/L (22-30); CHLORIDE 107 mmol/L (98-107); GLUCOSE 114 mg/dL (75-110); POTASSIUM 4.4 mmol/L (3.6-5.0); SODIUM 140.3 mmol/L (137-145)
--- NOTE | 2017-05-29 15:11 | PDOC DISCHARGE SUMMARY ---
General - Admit/Disc Date/PCP Admission Date/Primary Care Provider: 05/28/17 19:00 Discharge Date: 05/29/17 - Discharge Diagnosis (1) Alcohol withdrawal Is this a current diagnosis for this admission?: Yes (2) Alcoholism Is this a current diagnosis for this admission?: Yes (3) Smoker Is this a current diagnosis for this admission?: Yes (4) Leucocytosis Is this a current diagnosis for this admission?: Yes (5) Diarrhea Is this a current diagnosis for this admission?: Yes - Additional Information Resuscitation Status: Full Code Discharge Diet: As Tolerated Discharge Activity: Activity As Tolerated Prescriptions: Diazepam [Valium 5 mg Tablet] 5 mg PO Q12 #7 tablet Thiamine HCl [Thiamine 100 mg Tablet] 100 mg PO DAILY 30 Days #30 tablet Home Medications: Diazepam [Valium 5 mg Tablet] 5 mg PO Q12 #7 tablet 05/29/17 Multivitamin [Tab-A-Endy (Multiple Vitamin) Tablet] 1 tab PO DAILY tablet 05/29 Thiamine HCl [Thiamine 100 mg Tablet] 100 mg PO DAILY 30 Days #30 tablet History of Present Illness History of Present Illness: JOHN DIAMOND is a 56 year old male who presents for alcohol detox. The patient is a known alcohol abuser. He has been having difficulty with attempting cessation of alcohol for many years. The patient states that he has not had a drink in 3 days. He describes himself as shaking from the inside out. He is having visual hallucinations. He states that his eyes are bugging out and he is seeing ants and had "" hair everywhere. When he came into the emergency department at approximately 8:00 this morning he was given a dose of phenobarbital. This led to a stomachache and watery eyes. Therefore, he refused any additional phenobarbital. The patient was seen by psychiatry. Arrangements were made for outpatient detox. However, the patient became more tremulous and therefore I was called to admit the patient. The patient has been having vomiting over the last 2 days since stopping alcohol. At the current time he is having dry heaves. He denies any hematemesis or melena. The patient's current alcohol intake is approximately one half a gallon per day. Currently, he is not using any home medications or [id number] medications. Hospital Course Hospital Course: The patient was admitted overnight for tremulousness. The patient's vital signs remained stable. He was treated with oral Valium. This morning, the patient was complaining of diarrhea. I ordered stool studies, however, the patient has not had any additional bowel movements. The patient is medically stable for discharge at this time. He has been seen by our psychiatric services. He will need follow-up for his alcohol abuse disorder. I have recommended that he be seen at [facility]. He was noted to have mild leukocytosis yesterday. This can be attributed to the patient's alcohol withdrawal and detoxification. He does not appear to have any underlying infection. If fevers persist and/or diarrhea persists he will need further medical evaluation. The patient has been instructed to follow-up at the [facility] in [facility] where he will need additional lab testing. He will be discharged on a very short course of Valium for 3 days. This should give him adequate time to follow-up with a provider outside of the hospital who can assist him with his detoxification process. Physical Exam Vital Signs: Temp Pulse Resp BP Pulse Ox 98 F 76 17 148/80 H 96 05/29/17 07:00 05/29/17 07:20 05/29/17 11:01 05/29/17 11:01 05/29/17 11:01 Additional comments: His cognition and mentation have remained normal. He answers questions appropriately. In general, he is a disheveled appearing middle-aged male. His facial appearance is noteworthy for poor dentition. His lungs are clear to auscultation bilaterally. His cardiac exam is regular without murmurs, gallops or rubs. The abdomen is soft and flat. Bowel sounds are present in the lower quadrants. He does not have any guarding or rebound noted and there are no hernias or masses present. The lower extremities are warm to touch without edema. The skin is clean, warm, dry and intact. No lesions or rashes are present. Conjunctiva are normal without icterus. Results Laboratory Results: 05/29/17 12:03 05/29/17 12:03 Sodium 140.3 Potassium 4.4 Chloride 107 Carbon Dioxide 26 Anion Gap 7 BUN 22 H Creatinine 0.80 Est GFR ( Amer) > 60 Est GFR (Non-Af Amer) > 60 Glucose 114 H Calcium 9.1 Qualifiers - * PATEINT BEING DISCHARGED WITH ANY OF THE FOLLOWING DIAGNOSIS?: No Plan Discharge Plan: 1 Discharge to home: Patient is staying with a friend. 2. Diet will be regular 3. Patient will need additional follow-up with the [facility] medical clinic in [place]. It is recommended that a repeat CBC be done in 1-2 weeks. Patient will also need additional follow-up at [facility] or other psychiatric services to assist with his detoxification from alcohol. Time Spent: Less than 30 Minutes
[2017-05-29 16:22] VITALS: BP 156/79
--- NOTE | 2017-05-29 18:47 | Progress Note ---
Provider Note Provider Note: While discharging the patient I reviewed an entry in the patient's chart from Dr. Ivory and Karo Perkins. I would like to clarify what was stated. I was called to see the patient at 615pm by Karo Perkins. I was told that the patient first presented to the emergency department at 0800. I was also told that the patient was cleared by psychiatry for discharge. I was also told that the patient had refused a second dose of phenobarbital. I questioned Karo Perkins about the delay of care. Why was sound hospitalist service being consulted 10 hours after the patient initially arrived in the emergency department? The record as stated by Karo Perkins states that I refused to see the patient. Please note that this is completely false. I never refused to see this patient. I expressed my frustration over being notified of a patient for a late admission who esentially was in the emergency department for ten hours and was deemed stable for discharge. I did come down to see the patient at approximately 620. Note that labs had not yet been obtained and reported. Despite this I did immediately proceed with admission and orders. I asked Dr. Dean, rosina, to check labs when available. I confirmed the next morning that this was done.
== END 2017-05-29 15:45 | disposition home or self-care (01) | DRG 897 ==
LOC: ER 13:18 → EH 18:45 → OBSVTOIN 19:00
PROVIDERS: ADMIT Family Medicine; ATTEND Family Medicine
PROC: 3E0F73Z Introduction of Anti-inflammatory into Respiratory Tract, Via Natural or Artificial Opening (ICD-10-PCS; principal; 2017-05-28)
DX: F10.232 Alcohol dependence with withdrawal with perceptual disturbance (principal); F31.9 Bipolar disorder, unspecified; F17.210 Nicotine dependence, cigarettes, uncomplicated; Y90.0 Blood alcohol level of less than 20 mg/100 ml; R19.7 Diarrhea, unspecified; Z79.899 Other long term (current) drug therapy; Z90.49 Acquired absence of other specified parts of digestive tract; Z60.2 Problems related to living alone; Z88.6 Allergy status to analgesic agent; Z88.4 Allergy status to anesthetic agent; Z91.19 Patient's noncompliance with other medical treatment and regimen; Z59.6 Low income; Z80.0 Family history of malignant neoplasm of digestive organs
CPT/HCPCS: 36415; 80048; 80053; 80307; 81001; 83690; 85025; 85610; 85730; 93005; 93010; 96361; 96374; 99284; 99285; J2060; J2405; J2560; J3490; J7030; S0119; S0164

== ENCOUNTER 2017-06-02 05:36 | Emergency (ER) | payer MEDICARE ==
[2017-06-02] MEDS ORDERED: NORMAL SALINE 1000 ML 1,000 ML IV ONE (05:46)
--- NOTE | 2017-06-02 05:50 | ER Document Report ---
ED Medical Screen (RME) - General Stated Complaint: ETOL ABUSE Time Seen by Provider: 06/02/17 05:45 Mode of Arrival: Medic Information source: Patient TRAVEL OUTSIDE OF THE [place] IN LAST 30 DAYS: No - HPI Patient complains to provider of: I NEED HELP Notes: 06/02/17 05:49 Patient is here via EMS with complaints of nausea vomiting and wanted to help getting off of alcohol. He states his last drink was about 2 hours ago. Had some nausea vomiting. He states that he fell injured his lower back. He has a prior history of low back surgery and has some chronic back pain. No other significant complaints at this time. The patient's been seen several times this month for similar complaints. Physical exam shows no acute distress. An initial examination was made on the patient as part of the triage process, and it was determined a more comprehensive evaluation was necessary. Initial labs were ordered and patient was transferred to another provider in the ED who assumed care and finished evaluation and plan. - Related Data Allergies/Adverse Reactions: diphenhydramine Adverse Reaction (Verified 05/28/17 13:19) Dystonia morphine Adverse Reaction (Verified 05/28/17 13:19) DIAPHORESIS Past Medical History Pulmonary Medical History: Reports: Hx COPD Renal/ Medical History: Denies: Hx Peritoneal Dialysis Psychiatric Medical History: Reports: Hx Anxiety, Hx Bipolar Disorder, Hx Depression Past Surgical History: Reports: Hx Abdominal Surgery - hernia, Hx Cholecystectomy, Hx Herniorrhaphy, Hx Orthopedic Surgery - L4-L5 laminectomy., Other - right inguinal hernia repair; left ulnar nerve replacement. - Immunizations History of Influenza Vaccine for 12/2016 - 05/2017 Season: Yes
--- NOTE | 2017-06-02 06:29 | ER Document Report ---
ED Substance Abuse / Acc. OD - General Chief Complaint: ETOH Abuse Stated Complaint: ETOL ABUSE Time Seen by Provider: 06/02/17 05:45 Mode of Arrival: Medic Notes: The patient is a 56-year-old male, past medical history chronic alcoholic, presents with request for alcohol detox. He has been seen multiple times in this emergency room for similar complaints. He has also received multiple outpatient resources and inpatient resources, but he does not make any calls to set up the appointments. Patient is requesting Ativan while in the emergency room. He also had fall today and landed on his back. He denies saddle anesthesia, change in bowel or bladder, difficulty walking, open wounds, numbness or tingling. TRAVEL OUTSIDE OF THE [place] IN LAST 30 DAYS: No - Related Data Allergies/Adverse Reactions: diphenhydramine Adverse Reaction (Verified 05/28/17 13:19) Dystonia morphine Adverse Reaction (Verified 05/28/17 13:19) DIAPHORESIS Past Medical History - General Information source: Patient - Social History Smoking Status: Unknown if Ever Smoked Frequency of alcohol use: Heavy Drug Abuse: None Family History: Reviewed & Not Pertinent Patient has suicidal ideation: No Patient has homicidal ideation: No Pulmonary Medical History: Reports: Hx COPD Renal/ Medical History: Denies: Hx Peritoneal Dialysis Psychiatric Medical History: Reports: Hx Anxiety, Hx Bipolar Disorder, Hx Depression Past Surgical History: Reports: Hx Abdominal Surgery - hernia, Hx Cholecystectomy, Hx Herniorrhaphy, Hx Orthopedic Surgery - L4-L5 laminectomy., Other - right inguinal hernia repair; left ulnar nerve replacement. Review of Systems - Review of Systems Notes: REVIEW OF SYSTEMS: CONSTITUTIONAL: -fevers, -chills EENT: -eye pain, -difficulty swallowing, -nasal congestion CARDIOVASCULAR: -chest pain, -syncope. RESPIRATORY: -cough, -SOB GASTROINTESTINAL: -abdominal pain, -nausea, -vomiting, -diarrhea GENITOURINARY: -dysuria, -hematuria MUSCULOSKELETAL: +back pain, -neck pain SKIN: -rash or skin lesions. HEMATOLOGIC: -easy bruising or bleeding. LYMPHATIC: -swollen, enlarged glands. NEUROLOGICAL: -altered mental status or loss of consciousness, -headache, - neurologic symptoms PSYCHIATRIC: -anxiety, -depression. ALL OTHER SYSTEMS REVIEWED AND NEGATIVE. Physical Exam - Vital signs Vitals: Temp Pulse Resp BP Pulse Ox 98.3 F 89 20 129/75 H 95 03/22/18 06:06 06/02/17 06:06 06/02/17 06:06 06/02/17 06:06 06/02/17 06:06 - Notes Notes: PHYSICAL EXAMINATION: GENERAL: Well-appearing, well-nourished and in no acute distress. HEAD: Atraumatic, normocephalic. EYES: Pupils equal round and reactive to light, extraocular movements intact, sclera anicteric, conjunctiva are normal. ENT: nares patent, oropharynx clear without exudates. Moist mucous membranes. NECK: Normal range of motion, supple without lymphadenopathy LUNGS: Breath sounds clear to auscultation bilaterally and equal. No wheezes rales or rhonchi. HEART: Regular rate and rhythm without murmurs ABDOMEN: Soft, nontender, normoactive bowel sounds. No guarding, no rebound. No masses appreciated. EXTREMITIES: Normal range of motion, no pitting or edema. No cyanosis. NEUROLOGICAL: Cranial nerves grossly intact. Normal speech, normal gait. Normal sensory and motor exams. PSYCH: Normal mood, normal affect. SKIN: Warm, Dry, normal turgor, no rashes or lesions noted. Course - Re-evaluation Re-evalutation: Patient has absolutely no signs of alcohol withdrawal at this time. His last drink was at 4 AM today. Patient seen multiple times in the emergency room for similar complaints and has multiple outpatient resources given to patient for detox. There is no need for admission for alcohol withdrawal at this time. Suspect a component of benzodiazepine-seeking due to repeated requests for Ativan when he is in the ED. no red flag signs for low back pain at this time. Patient provided with packet for homelessness. - Vital Signs Vital signs: Temp Pulse Resp BP Pulse Ox 98.3 F 87 18 150/76 H 96 06/02/17 06:06 06/02/17 07:36 06/02/17 07:36 06/02/17 07:36 06/02/17 07:36 Discharge - Discharge Clinical Impression: Chronic alcoholism Back contusion Qualifiers: Encounter type: initial encounter Laterality: unspecified laterality Qualified Code(s): S20.229A - Contusion of unspecified back wall of thorax, initial encounter Condition: Stable Disposition: HOME, SELF-CARE Additional Instructions: CHRONIC ALCOHOLISM and ALCOHOL ABUSE: Your evaluation reveals evidence of chronic alcoholism, an addiction to alcohol. The tendency to alcoholism may be inherited. Chronic use of alcohol weakens muscles, causes fatty deposits in the liver , damages the stomach, makes you more prone to infections, and can cause defects in unborn children. In the long run, brain atrophy and cirrhosis of the liver result. You are also at greater risk for certain types of cancer, such as cancer of the mouth, throat, stomach, and liver. Counselling services are available to help you. In-hospital treatment programs often help. Support groups such as Alcoholics Anonymous can be very useful in beating this addiction. Your physician can make a referral for you. As alcoholics often are prone to other addictions, you should discuss your use of any other medications with the doctor. FOLLOW-UP CARE: If you have been referred to a physician for follow-up care, call the physician s office for an appointment as you were instructed or within the next two days. If you experience worsening or a significant change in your symptoms, notify the physician immediately or return to the Emergency Department at any time for re-evaluation. Contusion Your injury has resulted in a contusion -- a crushing of the deep tissues. No injury to important structures was detected during the physician's exam. Contusions vary in the amount of pain they cause, and in the length of time required for healing. Typically, the area will become bruised, and will remain painful to touch for two or three weeks. However, most patients are back to working and playing within a few days. After the initial period of rest and cold-packs, your symptoms (together with the doctor's recommendations) will determine how rapidly you can get back to full activity. Usually this means "do what feels okay, but don't do things that hurt." If re-examination was recommended, it's important to follow up as instructed. Call the doctor or return any time if pain increases, if swelling becomes severe, if you develop numbness or weakness in an injured extremity, or if any other alarming symptoms occur. Forms: Elevated Blood Pressure Referrals: [facility] [Outside] - Follow up as needed
[2017-06-02 07:37] VITALS: BP 150/76
--- NOTE | 2017-06-02 08:51 | PSYCHOLOGICAL NOTE ---
Psych Note - Psych Note Psych Note: Reason for consult: suicidal ideation, substance abuse Consent Permissions: refused; states he has no one PT HAS HX OF ETOH ABUSE. REPORT FROM EMS STATES THAT PT WISHES TO "GET HELP." PT CALLED EMS THIS EVENING TO BRING HIM TO [facility] TO DO SO. PT NORMALLY CONSUMES 1/ 2 GALLON ALCOHOL DAILY. THIS EVENING PT STATES THAT HE HAS NOT CONSUMED MUCH HE USUALLY DOES. PTS LAST DRINK WAS AT 0400 JUST PRIOR TO ARRIVAL. Upon discharge, patient stated he wanted to . Patient is a 56-year-old male. Patient reports that he has been drinking for 45 years and drinks half a gallon of alcohol per day. Patient reports he has been disabled since 2000. Patient reports that he wants assistance getting alcohol treatment because he is "to old for this." He continued to disclose that he wants to detox. When asked about his previous visits to [facility] and leaving AMA he stated; "I am always moving right when I need to go left." Patient then stated he would rather . When asked what is plan was he disclosed he would "look at the numbers you are giving me and call...I don't have anything...no food...phone...transportation...I need a ride back." Patient disclosed he lives in an RV in [place] then again stated he needed help and that he would " run into a train." Clinician psychoeducated patient on addiction and needing to achieve sobriety to appropriately assess and treat his mental health. Patient disclosed he need assistance to get to his RV because he is disabled and "could not walk good." Clinician notes the patient was observed walking with no difficulties on multiple occasions previously and during current visit. Patient stated he wants to be sober and stated he would call the numbers provided for help. Patient is alert and orientated to person, place, time and circumstance. Mood is euthymic with congruent affect. Clinician observed patient's hands, arms and legs are shaking in an erratic motion. Clinician observed patient was seen previously in the emergency department for similar symptoms and complaints. It is also noted the patient's shaking is pronounced when he sees he is being observed but when observed without patient knowing, there are no visible tremors. Patient has been requesting Ativan multiple times for his "tremors." Patient disclosed suicidal ideation with plan that he then disclosed he would be unable to achieve (i.e difficult walking but would "run into a train.") delusions are absent and behaviour is congruent with an intact reality based presentation (ie. organized and linear). Thought content is centered around achieving secondary gain. Intellectual abilities appear to be average range. Conversation speech is within normal rate, tone and prosody. Attention adn concentration are good. Insight, judgment and impulse control is poor due to substance abuse. Clinician conducted comprehensive chart review and included below note previously documented by mental health: On 05/24/2017 The patient was seen by the Behavior Health Team on 05/12/2017 for alcohol withdrawal and wanting detox. He was previously admitted on 05/08/2017 for similar ethology. Patient disclosed he has classic signs of withdrawal such as throwing up, the sweats, ect; however, "I am seeing hair or ants everywhere and faces jumping out at me for the last three days." He original stated this was the first time it has happened but when reminded of his previous hospitalization he confirmed he is seeing the same things. On 05/24/2017 He disclosed he has only been in the local area about one month and came here for "the 80 degree weather in stead of 30 below weather." On 05/28/2017 When clinician returned to facilitate a conversation regarding patient not following through with original recommendations patient explained he could not afford the prescriptions and thus did not follow through. Patient reports that he did call the mobile crisis line today and intends on following through with that recommendation. Medication recommendations made by [facility] contracted psychiatric provider Dr. 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 Patient was seen previously at [facility] and is well known to [facility] staff and clinician for similar symptoms and complaints (05/08/2017-05/10/2017 (Left AMA)..05/11/2017-2017 (Left AMA)..05/20/2017-05/25/2017 (Left AMA)..05/28/2017 twice). Patient has been recommended for [facility] mobile crisis management during each [facility] visit to assist with linking patient to substance use treatment and a detox facility; in addition, he has been given resource packet information. Patient has not followed through with recommendations and continues to attempt to receive substance abuse/treatment services from [facility]. Upon current discharge the patient stated to his attending nurse he was suicidal. When clinician asked what is suicidal plan was, he disclose his plan for attempting to achieve sobriety. When clinician stared to discuss discharge plan with him, he then disclosed he would "run into a train." Patient's behaviour is congruent with attempting to achieve secondary gain and has provided conflicting information multiple times in an attempt to delay discharge ; patient's plan that he then stated he would not be able to follow through with because he is "disabled..could not walk good." Recommendation for patient to follow through with original recommendations to include contacting integrated family service mobile crisis management for linkage to substance use treatment. Consulted with Dr. Narayan regarding the management and care of patient; attending physician is in agreement with recommendations and disposition.
== END 2017-06-02 08:03 | disposition home or self-care (01) ==
LOC: ER 05:36
DX: S20.229A Contusion of unspecified back wall of thorax, initial encounter (principal); F10.20 Alcohol dependence, uncomplicated; R11.2 Nausea with vomiting, unspecified; X58.XXXA Exposure to other specified factors, initial encounter; J44.9 Chronic obstructive pulmonary disease, unspecified; Z88.6 Allergy status to analgesic agent; Z90.49 Acquired absence of other specified parts of digestive tract
CPT/HCPCS: 99285